=== PATIENT | female | born 1930 ===

== ENCOUNTER 2017-09-27 01:40 | Observation (INO) | payer MEDICARE, MEDICAID ==
[2017-09-27 01:41] VITALS: PULSE 145
--- NOTE | 2017-09-27 01:45 | ED PDOC ---
Arrival/HPI <Kartik Bojorquez - Last Filed: 09/27/17 03:01> - General Historian: Patient - History of Present Illness Time/Duration: 1-3 hours Symptom Course: Unchanged Activities at Onset: Light Context: Slipped <Tess De Souza - Last Filed: 09/27/17 03:24> - General Chief Complaint: Trauma Time Seen by Provider: 09/27/17 01:42 - History of Present Illness Narrative History of Present Illness (Text): CC: fall 86F presents to the Emergency department brought in by EMS with daughter for a fall. Patient's daughters heard a thud and went to see patient on the floor. No witness fall. Patient was found lying on her side with her head hitting the floor. Patient denies hip pain, back pain, chest pain, abdominal pain, changes in vision, weakness, difficulty moving extremities. Patient states her only pain is the bump on her head. PMH: T2DM, paroxysmal atrial fibrillation, CAD, hypertension, asthma, multiple myeloma on chemotherapy, coronary stents x 3 PMD: Dr. Estevez 09/27/17 02:15 (Tess De Souza) Past Medical History - Provider Review Nursing Documentation Reviewed: Yes - Infectious Disease Hx of Infectious Diseases: None - Tetanus Immunization Tetanus Immunization: Up to Date - Cardiac Hx Cardiac Disorders: Yes Hx Hypertension: Yes - Pulmonary Hx Chronic Obstructive Pulmonary Disease (COPD): Yes - Neurological Hx Neurological Disorder: No Hx Transient Ischemic Attacks (TIA): No - HEENT Hx HEENT Disorder: Yes Hx Blind: No Hx Cataracts: Yes (b/l sx) Hx Deafness: No Hx Difficulty Chewing: No Hx Epistaxis: No Hx Glaucoma: Yes Hx Macular Degeneration: No - Renal Hx Renal Disorder: No Hx Renal Failure: No - Endocrine/Metabolic Hx Diabetes Mellitus Type 2: Yes - Hematological/Oncological Hx Blood Disorders: Yes Hx AIDS: No Hx Anemia: Yes (blood transfusion) Hx Cancer: Yes (multiple myeloma dx 2 yr ago) Hx Chemotherapy: Yes (chemo injection every thursday) Hx Cirrhosis: No Hx Hemophilia: No Hx Hepatitis A: No Hx Hepatitis B: No Hx Hepatitis C: No Hx Metastasis: No Hx Shingles: (left abd to left back, pain "sometimes") Hx Sickle Cell Disease: No Hx Unexplained Bleeding: No Other/Comment: pt had shingles "yrs ago" as per family, presently does not c/o pain, chemo is given once a week x 21 days then one week off - Integumentary Hx Dermatological Disorder: Yes (eyeglasses) Hx Basal Cell Carcinoma: No Hx Eczema: No Hx Melanoma: No Hx Psoriasis: No Hx Squamous Cell Carcinoma: No Other/Comment: bruise and swelling lower lip/ eccymosis, redness, swelling left or bit, 4cm long red bruise mitchell left forehead - Musculoskeletal/Rheumatological Hx Musculoskeletal Disorders: No Hx Falls: No (fell today) - Gastrointestinal Hx Gastrointestinal Disorders: No Hx Colostomy: No Hx Crohn's Disease: No Hx Diverticulitis: No Hx Gall Bladder Disease: No Hx Gastroesophageal Reflux: No Hx Gastrointestinal Ulcer: No Hx Ileostomy: No Hx Liver Failure: No Hx Pancreatitis: No HX Swallowing Problems: No - Genitourinary/Gynecological Hx Genitourinary Disorders: No Hx Reproductive Disorders: No - Psychiatric Hx Psychophysiologic Disorder: Yes Hx Anxiety: Yes Hx Substance Use: No - Past Surgical History Past Surgical History: No Previous - Surgical History Hx Amputation: No Hx Appendectomy: No Hx Cardiac Catheterization: Yes Hx Cholecystectomy: No Hx Coronary Stent: Yes (x3 6yrs) Hx Gastric Bypass Surgery: No Hx Hysterectomy: Yes Hx Joint Replacement: No Hx Kidney Transplant: No Hx Liver Transplant: No Hx Mastectomy: No Hx Musculoskeletal Surgery: No Hx Open Heart Surgery: No Hx Orthopedic Surgery: No Hx Splenectomy: No Hx Valve Replacement: No Other/Comment: 05/16/2015 proctoplasty for chronic rectal prolapse - Anesthesia Hx Anesthesia: Yes Hx Anesthesia Reactions: No Hx Malignant Hyperthermia: No - Suicidal Assessment Feels Threatened In Home Enviroment: No <Tess De Souza - Last Filed: 09/27/17 03:24> Family/Social History - Physician Review Nursing Documentation Reviewed: Yes Family/Social History: No Known Family HX, Unknown Family HX Smoking Status: Never Smoked Hx Alcohol Use: No Hx Substance Use: No Hx Substance Use Treatment: No <Tess De Souza - Last Filed: 09/27/17 03:24> Allergies/Home Meds <Kartik Bojorquez - Last Filed: 09/27/17 03:01> <Tess De Souza - Last Filed: 09/27/17 03:24> Allergies/Adverse Reactions: Allergies No Known Allergies Allergy (Verified 09/27/17 01:46) Home Medications: Home Meds Medication Instructions Recorded Confirmed Atorvastatin [Lipitor] 80 mg PO HS 09/25/16 09/27/17 Docusate [Colace LIQUID] 100 mg PO DAILY PRN 09/25/16 09/27/17 Pantoprazole [Protonix EC Tab] 40 mg PO HS 09/25/16 09/27/17 hydroCHLOROthiazide [Hydrodiuril] 25 mg PO DAILY 09/25/16 09/27/17 Pregabalin [Lyrica] 75 mg PO BID 09/27/17 09/27/17 Review of Systems - Physician Review All systems were reviewed & negative as marked: Yes - Review of Systems Constitutional: Normal. absent: Fatigue, Weight Change, Fevers, Night Sweats Eyes: absent: Vision Changes, Photophobia, Eye Pain ENT: absent: Hearing Changes, TMJ Pain Respiratory: absent: SOB, Cough Cardiovascular: absent: Chest Pain, Palpitations, Calf Pain, Orthopnea Gastrointestinal: absent: Abdominal Pain, Stool Changes, Constipation, Diarrhea Genitourinary Female: absent: Dysuria, Frequency, Hematuria, Urine Output Changes Musculoskeletal: absent: Arthralgias, Back Pain, Neck Pain Skin: absent: Rash, Pruritis, Skin Lesions Neurological: absent: Headache, Dizziness, Focal Weakness, Gait Changes, Speech Changes, Facial Droop, Disequilibrium, Seizure Psychiatric: absent: Anxiety, Depression, Suicidal Ideation <Tess De Souza - Last Filed: 09/27/17 03:24> Physical Exam Temperature: Afebrile Blood Pressure: Hypertensive Pulse: Bradycardic Respiratory Rate: Normal Appearance: Positive for: Comfortable Pain Distress: Mild Mental Status: Positive for: Alert and Oriented X 3 - Systems Exam Head: Present: Atraumatic, Normocephalic, Tenderness (left hematoma) Pupils: Present: PERRL Extroacular Muscles: Present: EOMI Conjunctiva: Present: Normal Mouth: Present: Moist Mucous Membranes, Normal Lips. No: Dry, Drooling Nose (External): Present: Atraumatic. No: Abrasion, Contusion, Laceration Neck: Present: Normal Range of Motion, Trachea Midline. No: JVD Respiratory/Chest: Present: Clear to Auscultation, Good Air Exchange. No: Respiratory Distress, Accessory Muscle Use Cardiovascular: Present: Regular Rate and Rhythm, Normal S1, S2 Abdomen: Present: Normal Bowel Sounds. No: Tenderness, Distention, Peritoneal Signs Back: Present: Normal Inspection. No: CVA Tenderness, Midline Tenderness, Paraspinal Tenderness Upper Extremity: Present: Normal Inspection, Normal ROM, NORMAL PULSES, Capillary Refill < 2s. No: Edema Lower Extremity: Present: Normal Inspection, NORMAL PULSES, Normal ROM, Capillary Refill < 2 s. No: Edema, Tenderness, Erythema Neurological: Present: GCS=15, CN II-XII Intact, Speech Normal, Motor Func Grossly Intact, Normal Sensory Function, Normal Cerebellar Funct, Norm Deep Tendon Reflexes, Other (gait is baseline) Skin: Present: Warm, Dry, Normal Color. No: Rashes Psychiatric: Present: Alert, Oriented x 3, Normal Insight, Normal Concentration <Tess De Souza - Last Filed: 09/27/17 03:24> Vital Signs Temp Pulse Resp BP Pulse Ox 09/27/17 01:45 98.6 F 56 L 18 168/78 H 95 Medical Decision Making - Lab Interpretations I have reviewed the lab results: Yes - RAD Interpretation Hse Specialist: Radiologist - EKG Interpretation Interpreted by ED Physician: Yes Type: 12 lead EKG <Kartik Bojorquez - Last Filed: 09/27/17 03:01> Reassessment Condition: Unchanged - Lab Interpretations I have reviewed the lab results: Yes - RAD Interpretation Hse Specialist: Radiologist - EKG Interpretation Interpreted by ED Physician: Yes Type: 12 lead EKG <Tess De Souza - Last Filed: 09/27/17 03:24> ED Course and Treatment: Impression: Pt seen and evaluated with medical service technician. Pt, whose past medical history includes diabetes, paroxysmal atrial fibrillation, CAD with coronary stents, hypertension, asthma, and multiple myeloma currently on chemotherapy, presented s/p fall at home. Pt was found lying on her side at home bu daughter. Pt hit her head, and sustained a bruise to the left-side of her head. Aware and agree with HPI, clinical findings, plan, and management. Plan: -- CT Head w/o contrast -- EKG -- Labs, cardiac enzymes -- Tylenol -- Toradol -- Reassess and disposition (Kartik Bojorquez) 09/27/17 02:12 CT head EKG CBC CMP, Mg, Ph Cardiac ISO Tylenol for pain (Tess De Souza) - Lab Interpretations Lab Results: 09/27/17 02:20 Lab Results 09/27/17 02:20: PT 10.9, INR 0.96, APTT 30.9 09/27/17 02:20: WBC 6.1 D, RBC 4.16, Hgb 12.3, Hct 39.0, MCV 93.8, MCH 29.6, MCHC 31.5, RDW 17.3 H, Plt Count 192, MPV 11.5 H, Gran % 69.0 H, Lymph % (Auto) 16.4 L, [place] % (Auto) 10.6 H, Eos % (Auto) 3.8, Baso % (Auto) 0.2, Gran # 4.18, Lymph # (Auto) 1.0 L, [place] # (Auto) 0.6, Eos # (Auto) 0.2, Baso # (Auto) 0.01 09/27/17 02:20 Lab Results 09/27/17 02:20: PT 10.9, INR 0.96, APTT 30.9 09/27/17 02:20: WBC 6.1 D, RBC 4.16, Hgb 12.3, Hct 39.0, MCV 93.8, MCH 29.6, MCHC 31.5, RDW 17.3 H, Plt Count 192, MPV 11.5 H, Gran % 69.0 H, Lymph % (Auto) 16.4 L, [place] % (Auto) 10.6 H, Eos % (Auto) 3.8, Baso % (Auto) 0.2, Gran # 4.18, Lymph # (Auto) 1.0 L, [place] # (Auto) 0.6, Eos # (Auto) 0.2, Baso # (Auto) 0.01 wbc 6.1 RDW 17.3 hgb 12.3/39.0 (Tess De Souza) - RAD Interpretation Radiology Orders: 09/27/17 02:01 HEAD W/O CONTRAST [CT] Stat - EKG Interpretation EKG Interpretation (Text): 09/27/17 02:35 [id number]@62bpm (Tess De Souza) - Medication Orders Current Medication Orders: Discontinued Medications Acetaminophen (Tylenol 325mg Tab) 650 mg PO STAT STA Stop: 09/27/17 02:06 Last Admin: 09/27/17 02:26 Dose: 650 mg Disposition/Present on Arrival <Kartik Bojorquez - Last Filed: 09/27/17 03:01> - Present on Arrival Any Indicators Present on Arrival: No History of DVT/PE: No History of Uncontrolled Diabetes: No Urinary Catheter: No History of Decub. Ulcer: No History Surgical Site Infection Following: None - Disposition Have Diagnosis and Disposition been Completed?: Yes Disposition Time: 03:05 Patient Plan: Discharge <Tess De Souza - Last Filed: 09/27/17 03:24> - Disposition Diagnosis: Hematoma Disposition: HOME/ ROUTINE Patient Problems: Current Active Problems Problem Status Onset Hematoma Acute Condition: STABLE Additional Instructions: return to Emergency department if changes in vision, headache worsens, vomiting , nausea, numbness, tingling follow up with primary care doctor for further workup for falls, try encourage walker usage. Forms: [employer] (Latvian)
[2017-09-27 02:53] LABS: BASO # 0.01 K/mm3 (0.0-2.0); BASO % 0.2 % (0.0-3.0); EOS # 0.2 (0.0-0.7); EOS % 3.8 % (1.5-5.0); GRAN # 4.18 (1.4-6.5); HEMOGLOBIN 12.3 g/dL (12.0-16.0); LYMPH % 16.4 % (22.0-35.0); MEAN CELL VOLUME 93.8 fl (80.0-105.0); MEAN CORPUSCULAR HEMOGLOBIN 29.6 pg (25.0-35.0); MEAN CORPUSCULAR HGB CONC 31.5 g/dl (31.0-37.0); MEAN PLATELET VOLUME 11.5 fl (7.0-11.0); MONO # 0.6 (0.1-0.6); MONO % 10.6 % (1.0-6.0); RBC 4.16 10^6/uL (3.5-6.1); RED CELL DISTRIBUTION WIDTH 17.3 % (11.5-14.5); WHITE BLOOD COUNT 6.1 10^3/ul (4.5-11.0)
[2017-09-27 02:58] LABS: INR 0.96 (0.93-1.08); PARTIAL THROMBOPLASTIN TIME 30.9 Seconds (25.1-36.5); PROTHROMBIN TIME 10.9 SECONDS (9.4-12.5)
[2017-09-27 03:35] LABS: ALB/GLOB RATIO 1.4 (1.1-1.8); ALBUMIN 3.6 g/dL (3.0-4.8); ALT/SGPT 24 U/L (7-56); AST/SGOT 30 U/L (14-36); BLOOD UREA NITROGEN 29 mg/dL (7-21); CALCIUM 9.2 mg/dL (8.4-10.5); GFR AFRICAN-AMERICAN 52; GFR NON-AFRICAN AMERICAN 43; MAGNESIUM 1.5 mg/dL (1.7-2.2)
[2017-09-27 03:40] LABS: TROPONIN I < 0.01 ng/mL
--- NOTE | 2017-09-27 03:57 | CT ---
EXAM: CT Head Without Intravenous Contrast EXAM DATE/TIME: 09/27/2017 2:01 AM CLINICAL HISTORY: 86 years old, female; Injury or trauma; Fall; Initial encounter; Concussion / head injury; Without loss of consciousness; Additional info: Fell and hit head TECHNIQUE: Axial computed tomography images of the head/brain without intravenous contrast. All CT scans at this facility use one or more dose reduction techniques, viz.: automated exposure control; ma/kV adjustment per patient size (including targeted exams where dose is matched to indication; i.e. head); or iterative reconstruction technique. Coronal and sagittal reformatted images were created and reviewed. COMPARISON: Prior head CT of 2016-08-25 FINDINGS: BRAIN: Best seen on image 17 of series 4, there is a small amount of high density in the left basilar cistern, in the suprasellar cistern on the left posteriorly, a new finding, suspicious for a tiny amount of acute subarachnoid hemorrhage. This is also at the expected location of the left posterior cerebral artery, and it has a linear configuration. Areas of hypodensity in the white matter bilaterally, nonspecific in appearance, but most likely representing chronic small vessel ischemic changes, in a patient of this age. No other significant abnormality identified. No acute extra-axial fluid collections visualized. No evidence of acute intraparenchymal or intraventricular hemorrhage. VENTRICLES: See above. BONES/JOINTS: No acute fractures are seen. SOFT TISSUES: Soft tissue swelling in the left posterior scalp. SINUSES: Near complete opacification of the left maxillary sinus. There is also moderate opacification of the left ethmoid sinuses and mild mucosal thickening in the left frontal sinus. Findings are compatible with sinus inflammatory disease. Sinus navarro appear intact. MASTOID AIR CELLS: Small amount of fluid in the left mastoid air cells, suspicious for mild left mastoiditis. No evidence of an underlying left temporal bone fracture. IMPRESSION: - Findings suspicious for a tiny amount of acute subarachnoid hemorrhage in the basilar cisterns on the left. This is also the expected location of the left posterior cerebral artery, and if there is any clinical concern for an acute infarct causing a hyperdense artery sign, consider CT angiogram of the brain for further evaluation. - See above for remaining findings.
[2017-09-27] MEDS ORDERED: Sodium Chloride 0.9% 1,000 ML IV STA ×2 (04:06→10:15)
[2017-09-27 06:33] VITALS: BMI 21.2
--- NOTE | 2017-09-27 09:05 | RAD ---
HISTORY: cp COMPARISON: 09/25/2016 FINDINGS: LUNGS: No active pulmonary disease. PLEURA: No significant pleural effusion identified, no pneumothorax apparent. CARDIOVASCULAR: Normal. OSSEOUS STRUCTURES: No significant abnormalities. VISUALIZED UPPER ABDOMEN: Normal. OTHER FINDINGS: None. IMPRESSION: No active disease.
[2017-09-27] MEDS ORDERED: Aspirin 325 mg EC Tablets PO SCH (10:00)
[2017-09-27] MEDS: Magnesium Oxide 400 mg Tab UD PO SCH ×2 (10:27→19:04)
--- NOTE | 2017-09-27 11:47 | CARD ---
APPROVED REPORT EKG Measurement Heart [id number] HI 120P12 [id number] <Conclusion> Normal sinus rhythm Normal ECG
--- NOTE | 2017-09-27 15:44 | MRI ---
PROCEDURE: MRI BRAIN WITHOUT CONTRAST HISTORY: sah COMPARISON: CT scan 09/27/2017 TECHNIQUE: Multiplanar, multisequence MR images of the brain were obtained without intravenous contrast enhancement. FINDINGS: HEMORRHAGE: None DWI: No evidence of an acute or early subacute infarction. BRAIN PARENCHYMA: No mass effect or edema. Chronic microvascular changes are seen in the periventricular white matter. No acute intracranial findings. There is a small linear area of hyperintensity adjacent to the left middle cerebral peduncle which corresponds to the area of hyperdensity seen on CT. This probably represents a small amount of subarachnoid hemorrhage. There is no evidence of vascular thrombosis. The finding is seen on FLAIR image 12 series 5 VENTRICLES: Unremarkable. No hydrocephalus. CRANIUM: Unremarkable. ORBITS: Grossly unremarkable. PARANASAL SINUSES/MASTOIDS: Clear VASCULAR SYSTEM: Skull base flow voids intact. OTHER FINDINGS: None. IMPRESSION: There is a small linear area of hyperintensity adjacent to the left middle cerebral peduncle which corresponds to the area of hyperdensity seen on CT. This probably represents a small amount of subarachnoid hemorrhage. There is no evidence of vascular thrombosis.
[2017-09-27 18:21] VITALS: RESP 18
[2017-09-27] MEDS ORDERED: Pantoprazole 40 mg EC Tab PO SCH (22:00)
--- NOTE | 2017-09-27 23:24 | HP ---
HISTORY OF PRESENT ILLNESS: She came into the emergency room last night, being an 86-year-old female, by her daughter when the daughter heard a thud and seeing the patient on the floor, no witnessed fall, she was lying on her side with her head hitting the floor. No hip pain, chest pain, back pain, but she is weak, difficulty moving extremities. PAST MEDICAL HISTORY: She has a past medical history of type 2 diabetes; AFib; CAD; hypertension; asthma and multiple myeloma, on chemotherapy; coronary stents x3; COPD; cataract surgery bilaterally; glaucoma; diabetes. She has blood problems. She had blood transfused in the past, multiple myeloma, chemo injection every Thursday. She had shingles in the past. She wares eyeglasses. Bruising and swelling in the lower lip, ecchymoses, redness, swelling, 4 cm long red bruise in the left forehead. The back of her head is swollen. She has some anxiety. She had coronary stents x3 six years ago. She has had a hysterectomy. She had a proctoplasty for chronic rectal prolapse. FAMILY HISTORY: Hypertension in the family. SOCIAL HISTORY: Never smoked. No drugs or alcohol. ALLERGIES: NO KNOWN DRUG ALLERGIES. MEDICATIONS: She takes Lipitor, Colace, Protonix, Hydrodiuril, Lyrica. REVIEW OF SYSTEMS: She feels weak. She has a head swelling from where she hit the head, no vision change or hearing change. No swallowing problems. No shortness of breath. No cough or chest pain or palpitations. No calf pain. No abdominal pain. No nausea, vomiting, constipation, diarrhea. No problems urinating. She has no back pain. Just the head swelling. Skin for the most part is intact. Couple of bruises. No headache, no dizziness or focal weakness, but she is weak overall. She is anxious from time to time. She has a swelling in the back of her head. PHYSICAL EXAMINATION: VITAL SIGNS: She has a 98.6 temperature, 56 pulse, 18 respiratory rate, 168/78 blood pressure, 95% sat on room air. HEENT: Head has some trauma in the left, hematoma to the back of the head, on the left side. Extraocular muscles intact. Pupils equal and reactive to light and accommodation. Throat is moist. Nose is atraumatic. No bloody nose, no biting of the tongue. Throat is clear. NECK: Supple. HEART: Regular rate. Normal S1, S2. LUNGS: Decreased breath sounds, clear to auscultation. ABDOMEN: Soft, nontender. Positive bowel sounds. No guarding, no rebound or CVA tenderness. EXTREMITIES: She can move all four extremities. No edema. Equal strength bilaterally. NEUROLOGIC: GCS is 15. Cranial nerves II through XII grossly intact. Tongue is midline. She can squeeze my hand with equal strength. She smiles, she frowns. She closes her eyes tight. Neurologically she seems okay. At the back for her head there is a swelling the size of a grape. SKIN: Warm and dry. No apparent rashes or ulcers. PSYCHIATRIC: Alert and oriented x3. LYMPHATIC: Thyroid midline. No palpable appreciable lymphadenopathy at this time. LABORATORY DATA: She had multiple tests. She has a 143 sodium, potassium 4.3, BUN 29, creatinine 1.2. GFR is 43. Sugar is 114. Calcium is 9.2, phos of 3.8, total bili is 0.68. AST is 30, ALT is 24, alk phos 64. Lactate dehydrogenase is 525. Total creatinine kinase of 110. Troponin I is less than 0.01, total protein 6.3, albumin is 3.6. INR is 0.96. White count 6.1, 12.3 hemoglobin, 39 hematocrit with 192 platelets. She has a head CT which showed suspicious for tiny amount of acute subarachnoid hemorrhage in the basal cisterns on the left. This is also the expected location of the left posterior cerebral artery and if there is any concern of acute infarct causing hyperdense artery sign. Consider CT angiogram of the brain. There was also swelling of the left posterior head. The chest x-ray shows no active disease. She has a consult for Neurology. I put her on all the medications except aspirin and Plavix because of the bleed going on. I will put her on low flow IV fluids. She is on observation. I am hoping that we could possibly get her out in the first 24 hours. We are waiting to see what neurology has to say I think I can put her back on her Plavix and aspirin. She has a fall with head trauma, subarachnoid bleed. She might need physical therapy and see what the Physical Therapy says. Cornelius Estevez DO [facility] # [id number]
[2017-09-27 23:41] VITALS: O2SAT 97
[2017-09-28 06:30] LABS: HEMOGLOBIN 11.3 g/dL (12.0-16.0); MEAN CELL VOLUME 92.1 fl (80.0-105.0); MEAN CORPUSCULAR HGB CONC 31.5 g/dl (31.0-37.0); RBC 3.9 10^6/uL (3.5-6.1); RED CELL DISTRIBUTION WIDTH 17.1 % (11.5-14.5); WHITE BLOOD COUNT 4.9 10^3/ul (4.5-11.0)
[2017-09-28 07:13] LABS: ALB/GLOB RATIO 1.3 (1.1-1.8); CALCIUM 9.1 mg/dL (8.4-10.5)
--- NOTE | 2017-09-28 08:43 | CON ---
DATE: 09/27/2017 HISTORY OF PRESENT ILLNESS: This is an 86-year-old black female with a past medical history of diabetes, atrial fibrillation, coronary artery disease, hypertension, asthma, multiple myeloma, status post coronary stents and came to hospital because patient fell and daughter heard a thud and when she was found lying on the floor, no weakness, no visual problems, and not in distress and small hematoma at the back of the head in the left occipital region. PHYSICAL EXAMINATION: HEENT: Normocephalic. Head trauma secondary to fall at the back of the left side of the head. NECK: Supple. NEUROLOGIC: Alert, awake, oriented to x 3. No aphasia. Cranial nerve II through XII are tested. Pupils reactive. EOM intact. Visual rogers full. No facial asymmetry. Tongue, midline. Motor examination: Moves all the extremities equally. Tone normal. Deep tendon reflexes are 1+. Both plantars are downgoing. Sensory appears intact. Cerebellar, gait deferred. IMPRESSION: Subarachnoid hemorrhage secondary to fall. Patient feels better. Continue . Sriram Lowe MD
[2017-09-28] MEDS: Magnesium Oxide 400 mg Tab UD PO SCH (09:03)
--- NOTE | 2017-09-28 10:23 | CP.PCM.PN ---
Subjective - Date & Time of Evaluation Date of Evaluation: 09/28/17 Time of Evaluation: 10:21 - Subjective Subjective: 86 y o b female adm yest s/p fall CT shows small amount of sah MRI demonstrates this also no vascular anoilies no indication for surgery Pt obs x 24 hrs and clear neurosurgically Objective - Vital Signs/Intake and Output Vital Signs (last 24 hours): Temp Pulse Resp BP Pulse Ox 98.4 F 74 18 143/82 97 09/28/17 05:49 09/28/17 09:49 09/28/17 05:49 09/28/17 09:04 09/28/17 05:49 Intake and Output: 09/28/17 09/28/17 06:59 18:59 Intake Total 930 Output Total 2 Balance 928 - Medications Medications: Current Medications Acetaminophen (Tylenol 325mg Tab) 650 mg PO Q4H PRN PRN Reason: Pain, Mild (1-3) Atorvastatin Calcium (Lipitor) 80 mg PO [facility] Last Admin: 09/27/17 21:21 Dose: 80 mg Docusate Sodium (Colace Liquid) 100 mg PO DAILY PRN PRN Reason: Constipation Ferrous Sulfate (Feosol) 324 mg PO DAILY [facility] Last Admin: 09/28/17 09:03 Dose: 324 mg Hydrochlorothiazide (Hydrodiuril) 25 mg PO DAILY [facility] Last Admin: 09/28/17 09:03 Dose: 25 mg Losartan Potassium (Cozaar) 50 mg PO DAILY [facility] Last Admin: 09/28/17 09:03 Dose: 50 mg Magnesium Oxide (Mag-Ox) 400 mg PO BID [facility] Last Admin: 09/28/17 09:03 Dose: 400 mg Metformin HCl (Glucophage) 500 mg PO BID [facility] Last Admin: 09/28/17 09:03 Dose: 500 mg Pantoprazole Sodium (Protonix Ec Tab) 40 mg PO [facility] Last Admin: 09/27/17 21:21 Dose: 40 mg Pregabalin (Lyrica) 75 mg PO BID [facility] Last Admin: 09/28/17 09:03 Dose: 75 mg Sotalol HCl (Betapace) 80 mg PO BID [facility] Last Admin: 09/28/17 10:04 Dose: Not Given - Labs Labs: 09/28/17 05:50 09/28/17 05:50 PT 10.9 SECONDS (9.4-12.5) 09/27/17 02:20 INR 0.96 (0.93-1.08) 09/27/17 02:20 APTT 30.9 Seconds (25.1-36.5) 09/27/17 02:20
--- NOTE | 2017-09-28 13:57 | PN ---
DATE: SUBJECTIVE: I saw her sitting up in bed. She is very comfortable. The nurse tells me she went into AFib this morning that converted back to normal sinus rhythm. I will consult Dr. Christine, the kiln stoker. Also Neurology to take at look at her. I do not get to see the note yet, but consulted Neurosurgery for the subarachnoid hemorrhage. She is asymptomatic and comfortable at this time. She is eating, no apparent distress, she is 86 years old, and it is a very small subarachnoid hemorrhage. We will see what Neurosurgery has to say. PHYSICAL EXAMINATION: VITAL SIGNS: She has 98.4 temperature, 89 pulse, 143/77 blood pressure, 18 respiratory rate, 97% O2 sat on room air. HEENT: Head is atraumatic, normocephalic. Throat is moist. NECK: Supple. HEART: Regular rate at this time. LUNGS: Clear to auscultation. ABDOMEN: Soft. EXTREMITIES: No edema. MEDICATIONS: She is on Colace, Cozaar, Feosol, Glucophage, HydroDIURIL, Lipitor, Lopressor, Lyrica, magnesium oxide, Protonix, and Tylenol. LABORATORY DATA: She has a 139 sodium, potassium 4. BUN 22, creatinine 1.2. GFR is 43. Sugar is 95. Calcium is 9.1. Total bilirubin is 0.88. AST is 22, ALT is 25, alkaline phosphatase 53. Total protein is 5.4. White count is 4.9, hemoglobin 11.3, hematocrit 35.9, and platelets 152. INR is 0.96. She was supposed to also be on Plavix and aspirin, I held that during the bleed. Await Cardiology and Neurosurgery put that back on again. There is a question of Neurosurgery. If there is no Neurosurgery and Cardio says it okay, I possibly can discharge her this afternoon. Await and see what the consults say and subarachnoid bleed from a fall. Cornelius Estevez DO MTDD
--- NOTE | 2017-09-28 14:15 | EEG ---
DATE: 09/28/2017 CONDITION OF THE RECORDING: Drowsy. DIAGNOSIS: Altered mental status. MEDICATIONS: Reviewed by nurse's reconciliation sheet. INTERPRETATION: This is a 16-channel [employer] recording. Background activity of this tracing was composed of 6 to 7 cycles per second. There was small amount of beta activity of 16 to 20 cycles per second seen during this tracing. There was increased amount of theta activity 5 to 7 cycles per second seen during this tracing. Drowsiness was characterized by mixed beta and theta activities. Sleep was characterized by vertex transient waves, sleep spindles, and bilateral slowing. Photic stimulation showed no changes in the tracing. No paroxysmal activity is noted on this recording. CONCLUSION: This is an abnormal EEG due to presence of mild diffuse slowing consistent with mild bilateral cerebral dysfunction. No evidence of any epileptiform activity. Please clinically correlate. Jac Lowe MD
[2017-09-28 14:40] VITALS: BP 121/69; PULSE 63; TEMP 98.3
--- NOTE | 2017-09-28 16:16 | CP.PCM.PN ---
<Gogo Acosta - Last Filed: 09/28/17 16:16> Subjective - Date & Time of Evaluation Date of Evaluation: 09/28/17 Time of Evaluation: 09:00 - Subjective Subjective: Neurology PGY-[address] Lowe Pt denies any acute complaint. Denies [place], dizziness, CP, SOB Objective - Vital Signs/Intake and Output Vital Signs (last 24 hours): Temp Pulse Resp BP Pulse Ox 98.3 F 63 18 121/69 97 09/28/17 12:00 09/28/17 12:00 09/28/17 12:00 09/28/17 12:00 09/28/17 05:49 Intake and Output: 09/28/17 09/28/17 06:59 18:59 Intake Total 930 840 Output Total 2 Balance 928 840 - Medications Medications: Current Medications Acetaminophen (Tylenol 325mg Tab) 650 mg PO Q4H PRN PRN Reason: Pain, Mild (1-3) Atorvastatin Calcium (Lipitor) 80 mg PO [facility] Last Admin: 09/27/17 21:21 Dose: 80 mg Docusate Sodium (Colace Liquid) 100 mg PO DAILY PRN PRN Reason: Constipation Ferrous Sulfate (Feosol) 324 mg PO DAILY [facility] Last Admin: 09/28/17 09:03 Dose: 324 mg Hydrochlorothiazide (Hydrodiuril) 25 mg PO DAILY [facility] Last Admin: 09/28/17 09:03 Dose: 25 mg Losartan Potassium (Cozaar) 50 mg PO DAILY [facility] Last Admin: 09/28/17 09:03 Dose: 50 mg Magnesium Oxide (Mag-Ox) 400 mg PO BID [facility] Last Admin: 09/28/17 09:03 Dose: 400 mg Metformin HCl (Glucophage) 500 mg PO BID [facility] Last Admin: 09/28/17 09:03 Dose: 500 mg Pantoprazole Sodium (Protonix Ec Tab) 40 mg PO [facility] Last Admin: 09/27/17 21:21 Dose: 40 mg Pregabalin (Lyrica) 75 mg PO BID [facility] Last Admin: 09/28/17 09:03 Dose: 75 mg Sotalol HCl (Betapace) 80 mg PO BID [facility] Last Admin: 09/28/17 10:04 Dose: Not Given - Labs Labs: 09/28/17 05:50 09/28/17 05:50 PT 10.9 SECONDS (9.4-12.5) 09/27/17 02:20 INR 0.96 (0.93-1.08) 09/27/17 02:20 APTT 30.9 Seconds (25.1-36.5) 09/27/17 02:20 - Constitutional Appears: No Acute Distress - Head Exam Head Exam: ATRAUMATIC, NORMAL INSPECTION, NORMOCEPHALIC - Eye Exam Eye Exam: EOMI, Normal appearance, PERRL. absent: Scleral icterus Pupil Exam: NORMAL ACCOMODATION - ENT Exam ENT Exam: Mucous Membranes Moist - Neck Exam Additional comments: supple - Respiratory Exam Respiratory Exam: Clear to Ausculation Bilateral, NORMAL BREATHING PATTERN - Cardiovascular Exam Cardiovascular Exam: REGULAR RHYTHM, +S1, +S2. absent: Murmur - Neurological Exam Neurological Exam: Alert, Awake, Oriented x3 Additional comments: Visual rogers full Speech: no aphasia Motor: Move all extremiites equally Sensory: intact DTR: 1+ Plantars downgoing - Psychiatric Exam Psychiatric exam: Normal Affect, Normal Mood - Skin Skin Exam: Dry, Warm Assessment and Plan - Assessment and Plan (Free Text) Plan: Ms Harrell, 86 AAF, with PMH diabetes, a fib, CAD s/p stents, HEN, asthma, multiple myeloma sustained a subarachnoid hemorrhage secondary to fall. Brain MRI showed small linear hyperintensity adjacent to L middle cerebral peduncle, corresponding to hyperdensity seen on CT. No vascular thrombosis. EEG showed mild diffuse slowing consistent with mild bilateral cerebral dysfunction. No epileptiform activity. subarachnoid hemorrhage - Hold ASA and anticoagulants for 2 weeks after the onset of SAH - maintain SBP 120-130 - continue lyrica for multiple myeloma neuropathy - follow up with neurology outpatient in 1 week - pt is neurologically stable for discharge from hospital s/r/d/w Dr. Lowe <Jac Lowe - Last Filed: 09/29/17 10:30> Objective - Vital Signs/Intake and Output Vital Signs (last 24 hours): Temp Pulse Resp BP Pulse Ox 98.3 F 63 18 121/69 97 09/28/17 12:00 09/28/17 12:00 09/28/17 12:00 09/28/17 12:00 09/28/17 05:49 - Labs Labs: 09/28/17 05:50 09/28/17 05:50 PT 10.9 SECONDS (9.4-12.5) 09/27/17 02:20 INR 0.96 (0.93-1.08) 09/27/17 02:20 APTT 30.9 Seconds (25.1-36.5) 09/27/17 02:20 Attending/Attestation - Attestation I have personally seen and examined this patient.: Yes I have fully participated in the care of the patient.: Yes I have reviewed all pertinent clinical information, including history, physical exam and plan: Yes
--- NOTE | 2017-09-28 21:58 | CON ---
DATE: 09/28/2017 HISTORY OF PRESENT ILLNESS: The patient is an 86-year-old woman, who presented after a fall. She has a documented subarachnoid bleed. The patient's past medical history is notable for hypertension, diabetes mellitus, as well as documented paroxysmal atrial fibrillation. She was found to have self-limited atrial fibrillation today during her blood drawn. The patient is asymptomatic. No chest pain. No shortness of breath. SOCIAL HISTORY: The patient does not smoke. REVIEW OF SYSTEMS: A 14-point review of systems was reviewed in detail. No angina. No dyspnea. No pedal edema. No history of myocardial infarction. She does have occasional falls without loss of consciousness. PHYSICAL EXAMINATION: VITAL SIGNS: Blood pressure 143/82, heart rate in the 70s, normal sinus rhythm. NECK: Negative JVD. LUNGS: Without rales. HEART: S1, S2. EXTREMITIES: Without edema. EKG shows no acute changes. LABORATORY DATA: BUN and creatinine unremarkable. Potassium is 4.0. Magnesium on presentation is 1.5. Hemoglobin is 11.3. IMPRESSION: 1. Paroxysmal atrial fibrillation. 2. Diabetes mellitus. 3. Hypertension. 4. Status post fall. PLAN: Given these findings, the patient cannot be anticoagulated given her recurrent falls and documented subarachnoid bleed. Instead we will make attempts to keep the patient out of atrial fibrillation. We will change her metoprolol to sotalol 80 mg b.i.d. We will need to follow her heart rate carefully as an outpatient. Vance Christine MD
== END 2017-09-28 18:23 | disposition home or self-care (01) ==
LOC: ED 01:40 → ERH 04:01 → 2RSO 06:09
PROVIDERS: ADMIT Family Medicine; ATTEND Family Medicine
DX: S06.6X0A Traumatic subarachnoid hemorrhage without loss of consciousness, initial encounter (principal); J44.9 Chronic obstructive pulmonary disease, unspecified; I48.0 Paroxysmal atrial fibrillation; I25.10 Atherosclerotic heart disease of native coronary artery without angina pectoris; I10 Essential (primary) hypertension; E11.9 Type 2 diabetes mellitus without complications; C90.00 Multiple myeloma not having achieved remission; H40.9 Unspecified glaucoma; Y92.009 Unspecified place in unspecified non-institutional (private) residence as the place of occurrence of the external cause; W19.XXXA Unspecified fall, initial encounter; Z95.5 Presence of coronary angioplasty implant and graft
CPT/HCPCS: 36415; 70450; 70551; 71045; 80053; 82550; 82948; 83615; 83735; 84100; 84484; 85025; 85027; 85610; 85730; 93005; 95812; 99285; G0378; J7040

== ENCOUNTER 2018-07-05 16:10 | Inpatient (IN) | payer MEDICARE, MEDICAID ==
[2018-07-05 16:10] VITALS: PULSE 145
--- NOTE | 2018-07-05 16:28 | ED PDOC ---
Arrival/HPI - General Chief Complaint: Shortness Of Breath Historian: Family EM Caveat: Acuity of Condition, Respiratory Distress - Critical Care Critical Care Minutes: 30 minutes - History of Present Illness Narrative History of Present Illness (Text): 87 y/o F w/ h/o CHF, HTN, HLD presenting to the Emergency Department for respiratory distress. Per EMS, the patient was gasping for air and called her daughter who noted she was dyspneic at rest. EMS was called and noted the patient to be tachypneic with bibasilar crackles at the bases and administered 2 sprays of SL NTG as well as starting the patient on CPAP. The patient was noted to immediately improve in pulmonary status, but was noted to have pedal edema. Upon questioning of the daughter, the patient had been having progressive difficulty breathing. PCP: Dr. Estevez Specialist: Dr. Contreras(cardiology) Time/Duration: Prior to Arrival Symptom Onset: Sudden Symptom Course: Improving Quality: Tightness Severity Level: Moderate Activities at Onset: Rest Context: Home Past Medical History - Provider Review Nursing Documentation Reviewed: Yes - Travel History Have you recently traveled outside [place] w/in the past 3 mons?: No - Infectious Disease Hx of Infectious Diseases: None - Tetanus Immunization Tetanus Immunization: Up to Date - Cardiac Hx Cardiac Disorders: Yes Hx Hypertension: Yes Hx Peripheral Edema: Yes - Pulmonary Hx Respiratory Disorders: Yes Hx Asthma: Yes Hx Bronchitis: Yes Hx Chronic Obstructive Pulmonary Disease (COPD): Yes Hx Pneumonia: Yes - Neurological Hx Neurological Disorder: No Hx Transient Ischemic Attacks (TIA): No - HEENT Hx HEENT Disorder: Yes Hx Cataracts: Yes Hx Glaucoma: Yes - Renal Hx Renal Disorder: No Hx Renal Failure: No - Endocrine/Metabolic Hx Endocrine Disorders: Yes Hx Diabetes Mellitus Type 2: Yes - Hematological/Oncological Hx Blood Disorders: Yes Hx Anemia: Yes Hx Cancer: Yes (w/ chemo every Thursday) - Integumentary Hx Dermatological Disorder: Yes (eyeglasses) Hx Basal Cell Carcinoma: No Hx Eczema: No Hx Melanoma: No Hx Psoriasis: No Hx Squamous Cell Carcinoma: No Other/Comment: bruise and swelling lower lip/ eccymosis, redness, swelling left or bit, 4cm long red bruise mitchell left forehead - Musculoskeletal/Rheumatological Hx Musculoskeletal Disorders: Yes Hx Arthritis: Yes Hx Back Pain: Yes Hx Falls: Yes - Gastrointestinal Hx Gastrointestinal Disorders: No Hx Colostomy: No Hx Crohn's Disease: No Hx Diverticulitis: No Hx Gall Bladder Disease: No Hx Gastroesophageal Reflux: No Hx Gastrointestinal Ulcer: No Hx Ileostomy: No Hx Liver Failure: No Hx Pancreatitis: No HX Swallowing Problems: No - Genitourinary/Gynecological Hx Genitourinary Disorders: No Hx Reproductive Disorders: No - Psychiatric Hx Psychophysiologic Disorder: Yes Hx Anxiety: Yes Hx Substance Use: No - Past Surgical History Past Surgical History: No Previous - Surgical History Hx Cardiac Catheterization: Yes Hx Coronary Stent: Yes Hx Hysterectomy: Yes - Anesthesia Hx Anesthesia: Yes Hx Anesthesia Reactions: No Hx Malignant Hyperthermia: No - Suicidal Assessment Feels Threatened In Home Enviroment: No Family/Social History - Physician Review Nursing Documentation Reviewed: Yes Family/Social History: Unknown Family HX Smoking Status: Never Smoked Hx Alcohol Use: No Hx Substance Use: No Hx Substance Use Treatment: No Allergies/Home Meds Allergies/Adverse Reactions: Allergies No Known Allergies Allergy (Verified 09/27/17 01:46) Home Medications: Home Meds Medication Instructions Recorded Confirmed RX: Atorvastatin [Lipitor] 80 mg PO HS 09/25/16 07/05/18 RX: Pantoprazole [Protonix EC Tab] 40 mg PO DAILY 09/25/16 07/05/18 RX: hydroCHLOROthiazide 25 mg PO DAILY 09/25/16 07/05/18 [Hydrodiuril] RX: Pregabalin [Lyrica] 75 mg PO BID 09/27/17 07/05/18 Albuterol Sulfate [Proair Hfa] 1 puff IH TID PRN 07/05/18 07/05/18 Brimonidine Tartrate [Alphagan P 1 drop BOTHEYES TID 07/05/18 07/05/18 0.1 % Ophth] Docusate Sodium [Doc-Q-Lace] 1 cap PO PRN PRN 07/05/18 07/05/18 RX: Ferrous Sulfate [Feosol] 325 mg PO DAILY 07/05/18 07/05/18 SITagliptin [Januvia] 1 tab PO DAILY 07/05/18 07/05/18 Review of Systems - Review of Systems Systems not reviewed;Unavailable: Respiratory Distress Respiratory: SOB. absent: Cough, Sputum, Wheezing Cardiovascular: absent: Chest Pain, Palpitations Gastrointestinal: absent: Abdominal Pain, Constipation, Diarrhea Physical Exam Temperature: Febrile Blood Pressure: Normal Pulse: Regular Respiratory Rate: Tachypneic Appearance: Positive for: Cachectic Pain Distress: None Mental Status: Positive for: Agitated - Systems Exam Head: Present: Atraumatic, Normocephalic Pupils: Present: PERRL Extroacular Muscles: Present: EOMI Conjunctiva: Present: Normal Mouth: Present: Moist Mucous Membranes Neck: Present: Normal Range of Motion Respiratory/Chest: Present: Good Air Exchange, Decreased Breath Sounds, Rales (b/l crackles noted to the bases b/l), Tachypneic. No: Wheezes Cardiovascular: Present: Regular Rate and Rhythm, Normal S1, S2. No: Murmurs Abdomen: Present: Normal Bowel Sounds. No: Tenderness, Distention, Peritoneal Signs Rectal: Present: Rectal Tenderness, Other (Prolapsed rectocele noted extending out of rectal canal, tender to palpation). No: Melena Upper Extremity: Present: Normal Inspection, Capillary Refill < 2s. No: Cyanosis, Edema, Swelling Lower Extremity: Present: Edema, NORMAL PULSES Neurological: Present: GCS=15, CN II-XII Intact, Speech Normal Skin: Present: Warm, Dry, Normal Color. No: Rashes Psychiatric: Present: Alert, Anxious Medical Decision Making ED Course and Treatment: 07/05/18 16:34 Impression 87 y/o F w/ dysnpea worrisome for CHF exacerbation Differential Diagnoses Include But Are Not Limited To: --CHF exacerbation --ACS --Sepsis Plan --Labs --CXR --IVF --Blood Cultures --UA/Urine Cultures --BiPap --Reassess & disposition Progress Notes Patient has rectal temperature of 103.F with tachypnea. Rectal Tylenol ordered. Awaiting lab results. VBG reveals elevated potassium of 6.7 with no EKG changes. Sodium bicarbonate and albuterol nebulizer ordered. 07/05/18 17:08 Patient reassessed and still noted to be tachypneic to 26 with CXR revealing a left lower lobe retrocardiac infiltrate suspicious for PNA. Zosyn and Vancomycin ordered. Discussed case with Dr. Estevez(PCP) who accepts patient onto his service and requests Dr. Morris(pulmonary) and Dr. Christine(cardiology) consulted on the case. Interrogation of patient's daughter reveal patient had been seeing Dr. Carvajal on an outpatient basis. Discussion of updated plan with daughter who is in agreement. - RAD Interpretation Radiology Orders: 07/05/18 16:20 CHEST PORTABLE [RAD] Stat - EKG Interpretation EKG Interpretation (Text): NSR @ 68BPM LAE No ST elevations or T wave inversion Slight ST depression noted n V5. Interpreted by ED Physician: Yes Type: 12 lead EKG - Medication Orders Current Medication Orders: Acetaminophen (Tylenol 650 Mg Supp) 650 mg RC STAT STA Stop: 07/05/18 16:23 Sodium Chloride (Sodium Chloride 0.9%) 1,000 mls @ 150 mls/hr IV .Q6H40M RICHARD Disposition/Present on Arrival - Present on Arrival Any Indicators Present on Arrival: No History of DVT/PE: No History of Uncontrolled Diabetes: No Urinary Catheter: No History Surgical Site Infection Following: None - Disposition Have Diagnosis and Disposition been Completed?: Yes Diagnosis: PNA (pneumonia), Respiratory distress Disposition: HOSPITALIZED Disposition Time: 17:08 Patient Plan: Admission Patient Problems: Current Active Problems Problem Status Onset Pneumonia Acute Respiratory distress Acute Condition: GUARDED
[2018-07-05] MEDS ORDERED: Sodium Chloride 0.9% 1,000 ML IV SCH (16:30)
[2018-07-05 16:34] LABS: VENOUS BLOOD GAS BASE EXCESS 6.2 mmol/L (0.0-2.0); VENOUS BLOOD GAS PO2 48 mm/Hg (30-55); VENOUS BLOOD PH 7.33 (7.32-7.43)
[2018-07-05 16:42] LABS: BASO # 0.02 K/mm3 (0.0-2.0); BASO % 0.2 % (0.0-3.0); EOS # 0.1 (0.0-0.7); GRAN # 8.47 (1.4-6.5); GRAN % 84.5 % (50.0-68.0); HEMOGLOBIN 11.2 g/dL (12.0-16.0); LYMPH # 0.6 (1.2-3.4); LYMPH % 6.3 % (22.0-35.0); MEAN CORPUSCULAR HEMOGLOBIN 31.1 pg (25.0-35.0); MEAN CORPUSCULAR HGB CONC 32.7 g/dl (31.0-37.0); MEAN PLATELET VOLUME 11.6 fl (7.0-11.0); MONO # 0.8 (0.1-0.6); RBC 3.6 10^6/uL (3.5-6.1); RED CELL DISTRIBUTION WIDTH 16.1 % (11.5-14.5)
[2018-07-05 16:45] LABS: INR 1.09; PARTIAL THROMBOPLASTIN TIME 32.3 Seconds (25.1-36.5); PROTHROMBIN TIME 12.4 SECONDS (9.4-12.5)
[2018-07-05] MEDS ORDERED: Albuterol 0.083% Inhal Sol (2.5 mg/3 mL) UD INH STA (16:54)
[2018-07-05] MEDS ORDERED: Sodium Bicarbonate (8.4%) 50 Meq Syringe IVP ONE (16:54)
--- NOTE | 2018-07-05 16:54 | RAD ---
Date of service: 07/05/2018 HISTORY: Sepsis Patient COMPARISON: 09/27/2017 FINDINGS: LUNGS: Left lower lobe retrocardiac infiltrate, new finding compared to the prior study PLEURA: No significant pleural effusion identified, no pneumothorax apparent. CARDIOVASCULAR: No atherosclerotic calcification present No radiographic findings to suggest acute or significant cardiovascular disease. OSSEOUS STRUCTURES: No significant abnormalities. VISUALIZED UPPER ABDOMEN: Normal. OTHER FINDINGS: None. IMPRESSION: New left lower lobe infiltrate likely pneumonia.
[2018-07-05] MEDS ORDERED: Vancomycin 1gm in NS 250ml 1 GM/250 ML BAG IVPB STA (16:58)
[2018-07-05] MEDS: Piperacill/Tazo 4.5gm in NS 4.5 GM/100 ML BAG IVPB ONE ×2 (17:14→17:20)
[2018-07-05] MEDS ORDERED: Piperacill/Tazo 4.5gm in NS 4.5 GM/100 ML BAG IVPB ONE (17:18)
[2018-07-05] MEDS: Sodium Chloride 0.9% 1,000 ML IV SCH (17:21)
[2018-07-05 18:03] LABS: ALB/GLOB RATIO 1.2 (1.1-1.8); ALBUMIN 2.6 g/dL (3.0-4.8); CALCIUM 7.3 mg/dL (8.4-10.5)
[2018-07-05 18:29] LABS: TROPONIN I 1.82 ng/mL
[2018-07-05 18:57] LABS: URINE BILIRUBIN NEGATIVE (NEGATIVE); URINE BLOOD MODERATE (NEGATIVE); URINE GLUCOSE (UA) NEGATIVE (NEGATIVE); URINE LEUKOCYTE ESTERASE NEGATIVE Leu/uL (NEGATIVE); URINE PROTEIN TRACE mg/dL (<30 mg/dL); URINE UROBILINOGEN 0.2 E.U./dL (<1 E.U./dL)
[2018-07-05 19:02] LABS: URINE APPEARANCE CLEAR (CLEAR); URINE COLOR YELLOW (YELLOW)
[2018-07-05 19:17] LABS: URINE RBC 20 - 25 /hpf (0-2)
[2018-07-05 19:18] LABS: URINE BACTERIA SMALL (NEG)
--- NOTE | 2018-07-05 21:10 | PCM.SEPTIC ---
Sepsis Progress Note - Reassessment Type Date of Evaluation: 07/05/18 Time of Evaluation: 21:08 Reassessment Type: Non-invasive reassessment - Non Invasive Reassessment Were the most recent vital sign reviewed: Yes Vital Sign (Latest): Temp Pulse Resp BP Pulse Ox 101.6 F H 61 24 92/52 L 100 07/05/18 17:50 07/05/18 18:50 07/05/18 18:50 07/05/18 18:50 07/05/18 18:50 Cardiovascular: Yes: Regular Rate, Rhythm. No: Murmur Respiratory: Yes: Normal Breath Sounds. No: Accessory Muscle Use, Wheezing, Respiratory Distress Capillary Refill: Normal (Less than 2 sec) Pulses: Normal Radial, Normal Dorsalis Pedis, Normal Posterior Tibialis Skin: Warm, Dry - Invasive Reassessment (complete 2 of 4) Was a Central Venous Pressure Measurement obtained within 6 Hours after the presentation of septic shock: No Was a central venous oxygen measurement obtained within 6 hours after the presentation of septic shock: No Was a bedside cardiovascular ultrasound performed within 6 hours after the presentation of septic shock: No Fluid Challenge performed: Yes
[2018-07-05 21:15] LABS: VENOUS BLOOD GAS BASE EXCESS 8.3 mmol/L (0.0-2.0); VENOUS BLOOD GAS PO2 45 mm/Hg (30-55); VENOUS BLOOD PH 7.52 (7.32-7.43)
[2018-07-05 22:05] VITALS: BMI 20.5
[2018-07-06 00:09] VITALS: O2SAT 100
[2018-07-06] MEDS ORDERED: Magnesium Sulfate 2 gm/50 ml 2 GM/50 ML BAG IVPB ONE (00:14)
[2018-07-06] MEDS ORDERED: Potassium Chloride 20 mEq ER Tab PO ONE (00:15)
[2018-07-06] MEDS ORDERED: Sodium Chloride 0.9% 500 ML IV STA (00:54)
--- NOTE | 2018-07-06 04:02 | CP.PCM.PN ---
Subjective - Date & Time of Evaluation Date of Evaluation: 07/05/18 Time of Evaluation: 22:00 - Subjective Subjective: 87 yo female with PMH of CHF, HTN, HLD, subarachnoid hemorrhage, a. fib was admitted for PNA and respiratory distress. Patient was noted to have elevated troponin of 1.8. EKG was reviewed, nsr, no ST changes. Cardiology was contacted, recommended trending troponins and repeating EKG in the AM. Anticoagulation was not given due to history of bleed. Patient denies any chest pain, she is resting comfortably with bipap. Objective - Vital Signs/Intake and Output Vital Signs (last 24 hours): Temp Pulse Resp BP Pulse Ox 97.8 F 42 L 18 93/41 L 100 07/06/18 00:01 07/06/18 02:00 07/06/18 00:01 07/06/18 00:01 07/06/18 00:01 - Medications Medications: Current Medications Sodium Chloride (Sodium Chloride 0.9%) 1,000 mls @ 100 mls/hr IV .Q10H [facility] Last Admin: 07/05/18 17:21 Dose: 100 mls/hr - Labs Labs: 07/05/18 16:25 07/05/18 17:10 PT 12.4 SECONDS (9.4-12.5) 07/05/18 16:25 INR 1.09 07/05/18 16:25 APTT 32.3 Seconds (25.1-36.5) 07/05/18 16:25 - Constitutional Appears: No Acute Distress - Head Exam Head Exam: ATRAUMATIC, NORMOCEPHALIC - Respiratory Exam Respiratory Exam: Clear to Ausculation Bilateral, NORMAL BREATHING PATTERN. absent: Rhonchi, Wheezes, Respiratory Distress Additional comments: on bipap - Cardiovascular Exam Cardiovascular Exam: REGULAR RHYTHM. absent: Bradycardia, Tachycardia, Diastolic murmur, Murmur
[2018-07-06] MEDS: Sodium Chloride 0.9% 1,000 ML IV SCH ×3 (05:46→20:16)
--- NOTE | 2018-07-06 06:52 | CARD ---
APPROVED REPORT Date of service: 07/05/2018 EKG Measurement Heart [id number] <Conclusion> Normal sinus rhythm Possible Left atrial enlargement Borderline ECG
[2018-07-06 07:17] LABS: VENOUS BLOOD GAS BASE EXCESS 3.7 mmol/L (0.0-2.0); VENOUS BLOOD GAS PO2 47 mm/Hg (30-55); VENOUS BLOOD PH 7.39 (7.32-7.43)
--- NOTE | 2018-07-06 08:16 | CP.PCM.CON ---
<Bonnie Hoover - Last Filed: 07/06/18 10:53> History of Present Illness - History of Present Illness History of Present Illness: Infectious Disease Consult Note for Jett Yousif PGY3 This is an 87yo female with past medical history DMII, a.fib (not on anticoagulation), subarachnoid hemorrhage, HTN, CAD, multiple myeloma who came to ED for shortness of breath. Patient states she started feeling short of breath suddenly with some chest pain that does not radiate. She denies recent travel, sick contacts, fever/chills, nausea/vomiting/diarrhea, numbness/tingling, dysuria or hematuria. Past medical history: DMII, a.fib (not on anticoagulation), subarachnoid hemorrhage, HTN, CAD, multiple myeloma Past surgical history: hysterectomy, cataract surgery, proctoplasty Home meds: Reviewed Allergies: NKDA Social history: Denies tobacco, EtOH or drug use. Family history: heart problems, DM in both mom/dad - Sister: breast ca Review of Systems - Review of Systems All systems: reviewed and no additional remarkable complaints except Review of Systems: 12 point ROS reviewed as per HPI and is otherwise negative Past Patient History - Infectious Disease Hx of Infectious Diseases: None - Tetanus Immunizations Tetanus Immunization: Up to Date - Past Social History Smoking Status: Never Smoked - CARDIAC Hx Cardiac Disorders: Yes Hx Hypertension: Yes Hx Peripheral Edema: Yes - PULMONARY Hx Respiratory Disorders: Yes Hx Asthma: Yes Hx Bronchitis: Yes Hx Chronic Obstructive Pulmonary Disease (COPD): Yes Hx Pneumonia: Yes - NEUROLOGICAL Hx Neurological Disorder: No Hx Transient Ischemic Attacks (TIA): No - HEENT Hx HEENT Problems: Yes Hx Cataracts: Yes Hx Glaucoma: Yes - RENAL Hx Chronic Kidney Disease: No Hx Renal Failure: No - ENDOCRINE/METABOLIC Hx Endocrine Disorders: Yes Hx Diabetes Mellitus Type 2: Yes - HEMATOLOGICAL/ONCOLOGICAL Hx Blood Disorders: Yes Hx Anemia: Yes Hx Cancer: Yes (w/ chemo every Thursday) - INTEGUMENTARY Hx Dermatological Problems: Yes (eyeglasses) Hx Basil Cell: No Hx Eczema: No Hx Melanoma: No Hx Psoriasis: No Hx Squamous Cell: No Other/Comment: bruise and swelling lower lip/ eccymosis, redness, swelling left or bit, 4cm long red bruise mitchell left forehead - MUSCULOSKELETAL/RHEUMATOLOGICAL Hx Musculoskeletal Disorders: Yes Hx Arthritis: Yes Hx Back Pain: Yes Hx Falls: Yes - GASTROINTESTINAL Hx Gastrointestinal Disorders: No Hx Colostomy: No Hx Crohn's Disease: No Hx Diverticulitis: No Hx Gall Bladder Disease: No Hx Gastroesophageal Reflux: No Hx Ileostomy: No Hx Liver Failure: No Hx Pancreatitis: No HX Swallowing Problems: No - GENITOURINARY/GYNECOLOGICAL Hx Genitourinary Disorders: No - PSYCHIATRIC Hx Psychophysiologic Disorder: Yes Hx Anxiety: Yes - SURGICAL HISTORY Hx Cardiac Catheterization: Yes Hx Coronary Stent: Yes Hx Hysterectomy: Yes - ANESTHESIA Hx Anesthesia: Yes Hx Anesthesia Reactions: No Hx Malignant Hyperthermia: No Meds Allergies/Adverse Reactions: Allergies Allergy/AdvReac Type Severity Reaction Status Date / Time No Known Allergies Allergy Verified 09/27/17 01:46 - Medications Medications: Current Medications Aspirin (Ecotrin) 325 mg PO DAILY [facility] Atorvastatin Calcium (Lipitor) 80 mg PO HS [facility] Clopidogrel Bisulfate (Plavix) 75 mg PO DAILY [facility] Ceftriaxone Sodium (Rocephin 1 Gram Ivpb) 1 gm in 100 mls @ 100 mls/hr IVPB DAILY [facility]; Protocol Doxycycline Hyclate 100 mg/ (Sodium Chloride) 100 mls @ 100 mls/hr IVPB Q12 [facility]; Protocol Sodium Chloride (Sodium Chloride 0.9%) 1,000 mls @ 60 mls/hr IV .[id number] [facility] Sitagliptin Phosphate (Januvia) 25 mg PO DAILY [facility] Physical Exam - Constitutional Appears: No Acute Distress - Head Exam Head Exam: ATRAUMATIC, NORMAL INSPECTION, NORMOCEPHALIC - Eye Exam Eye Exam: Normal appearance, PERRL Pupil Exam: NORMAL ACCOMODATION, PERRL - ENT Exam ENT Exam: Mucous Membranes Moist - Respiratory Exam Respiratory Exam: Clear to Auscultation Bilateral, NORMAL BREATHING PATTERN. absent: Rales, Rhonchi, Wheezes, Respiratory Distress - Cardiovascular Exam Cardiovascular Exam: Bradycardia, REGULAR RHYTHM, +S1, +S2. absent: Gallop, Rubs, Systolic Murmur - GI/Abdominal Exam GI & Abdominal Exam: Normal Bowel Sounds, Soft. absent: Rebound, Rigid, Tenderness - Extremities Exam Extremities exam: Positive for: normal inspection. Negative for: calf tenderness, pedal edema - Neurological Exam Neurological exam: Alert, CN II-XII Intact - Psychiatric Exam Psychiatric exam: Normal Affect, Normal Mood - Skin Skin Exam: Dry, Warm Results - Vital Signs Recent Vital Signs: Last Vital Signs Temp 97.8 F 07/06/18 06:00 Pulse 45 L 07/06/18 06:00 Resp 19 07/06/18 06:00 BP 102/52 L 07/06/18 06:00 Pulse Ox 100 07/06/18 06:00 - Labs Result Diagrams: 07/05/18 16:25 07/06/18 09:24 Labs: Laboratory Results - last 24 hr 07/05/18 07/05/18 07/05/18 16:25 16:25 16:25 WBC 10.0 RBC 3.60 Hgb 11.2 L Hct 34.2 L MCV 95.0 MCH 31.1 MCHC 32.7 RDW 16.1 H Plt Count 278 MPV 11.6 H Gran % 84.5 H Lymph % (Auto) 6.3 L Perry % (Auto) 8.0 H Eos % (Auto) 1.0 L Baso % (Auto) 0.2 Gran # 8.47 H Lymph # (Auto) 0.6 L Perry # (Auto) 0.8 H Eos # (Auto) 0.1 Baso # (Auto) 0.02 PT 12.4 INR 1.09 APTT 32.3 pO2 48 VBG pH 7.33 VBG pCO2 65.0 H VBG HCO3 34.3 H VBG Total CO2 36.3 H VBG O2 Sat (Calc) 80.2 H VBG Base Excess 6.2 H VBG Potassium 6.7 H* Sodium 137.0 Chloride 103.0 Glucose 139 H Lactate 1.4 FiO2 21.0 Potassium Carbon Dioxide Anion Gap BUN Creatinine Est GFR ( Amer) Est GFR (Non-Af Amer) POC Glucose (mg/dL) Random Glucose Calcium Phosphorus Magnesium Total Bilirubin AST ALT Alkaline Phosphatase Troponin I NT-Pro-B Natriuret Pep Total Protein Albumin Globulin Albumin/Globulin Ratio Venous Blood Potassium 6.7 H* Urine Color Urine Appearance Urine pH Ur Specific [place] Urine Protein Urine Glucose (UA) Urine Ketones Urine Blood Urine Nitrate Urine Bilirubin Urine Urobilinogen Ur Leukocyte Esterase Urine RBC Urine WBC Ur Epithelial Cells Urine Bacteria 07/05/18 07/05/18 07/05/18 16:37 17:10 18:51 WBC RBC Hgb Hct MCV MCH MCHC RDW Plt Count MPV Gran % Lymph % (Auto) Perry % (Auto) Eos % (Auto) Baso % (Auto) Gran # Lymph # (Auto) Perry # (Auto) Eos # (Auto) Baso # (Auto) PT INR APTT pO2 VBG pH VBG pCO2 VBG HCO3 VBG Total CO2 VBG O2 Sat (Calc) VBG Base Excess VBG Potassium Sodium 141 Chloride 102 Glucose Lactate FiO2 Potassium 3.3 L Carbon Dioxide 37 H Anion Gap 5 L BUN 23 H Creatinine 1.1 Est GFR ( Amer) 57 Est GFR (Non-Af Amer) 47 POC Glucose (mg/dL) 114 H Random Glucose 136 H Calcium 7.3 L Phosphorus 2.9 Magnesium 1.3 L Total Bilirubin 0.9 AST 24 ALT 27 Alkaline Phosphatase 54 Troponin I 1.82 H* D NT-Pro-B Natriuret Pep 3630 H Total Protein 4.9 L Albumin 2.6 L Globulin 2.3 Albumin/Globulin Ratio 1.2 Venous Blood Potassium Urine Color Yellow Urine Appearance Clear Urine pH 7.0 Ur Specific [place] 1.015 Urine Protein Trace H Urine Glucose (UA) Negative Urine Ketones Negative Urine Blood Moderate H Urine Nitrate Negative Urine Bilirubin Negative Urine Urobilinogen 0.2 Ur Leukocyte Esterase Negative Urine RBC 20 - 25 Urine WBC 2 - 5 Ur Epithelial Cells 4 - 5 Urine Bacteria Small 07/05/18 07/05/18 07/06/18 21:11 23:07 06:55 WBC RBC Hgb Hct MCV MCH MCHC RDW Plt Count MPV Gran % Lymph % (Auto) Perry % (Auto) Eos % (Auto) Baso % (Auto) Gran # Lymph # (Auto) Perry # (Auto) Eos # (Auto) Baso # (Auto) PT INR APTT pO2 45 VBG pH 7.52 H VBG pCO2 39.0 L VBG HCO3 31.8 H VBG Total CO2 33.0 H VBG O2 Sat (Calc) 84.8 H VBG Base Excess 8.3 H VBG Potassium 3.9 Sodium 140.0 Chloride 105.0 Glucose 142 H Lactate 1.2 FiO2 21.0 Potassium Carbon Dioxide Anion Gap BUN Creatinine Est GFR ( Amer) Est GFR (Non-Af Amer) POC Glucose (mg/dL) Random Glucose Calcium Phosphorus Magnesium Total Bilirubin AST ALT Alkaline Phosphatase Troponin I 2.37 H* D 1.88 H* D NT-Pro-B Natriuret Pep Total Protein Albumin Globulin Albumin/Globulin Ratio Venous Blood Potassium 3.9 Urine Color Urine Appearance Urine pH Ur Specific [place] Urine Protein Urine Glucose (UA) Urine Ketones Urine Blood Urine Nitrate Urine Bilirubin Urine Urobilinogen Ur Leukocyte Esterase Urine RBC Urine WBC Ur Epithelial Cells Urine Bacteria 07/06/18 06:55 WBC RBC Hgb Hct MCV MCH MCHC RDW Plt Count MPV Gran % Lymph % (Auto) Perry % (Auto) Eos % (Auto) Baso % (Auto) Gran # Lymph # (Auto) Perry # (Auto) Eos # (Auto) Baso # (Auto) PT INR APTT pO2 47 VBG pH 7.39 VBG pCO2 49.0 VBG HCO3 29.7 H VBG Total CO2 31.2 H VBG O2 Sat (Calc) 84.0 H VBG Base Excess 3.7 H VBG Potassium 4.0 Sodium 141.0 Chloride 107.0 Glucose 95 Lactate 0.9 FiO2 21.0 Potassium Carbon Dioxide Anion Gap BUN Creatinine Est GFR ( Amer) Est GFR (Non-Af Amer) POC Glucose (mg/dL) Random Glucose Calcium Phosphorus Magnesium Total Bilirubin AST ALT Alkaline Phosphatase Troponin I NT-Pro-B Natriuret Pep Total Protein Albumin Globulin Albumin/Globulin Ratio Venous Blood Potassium 4.0 Urine Color Urine Appearance Urine pH Ur Specific [place] Urine Protein Urine Glucose (UA) Urine Ketones Urine Blood Urine Nitrate Urine Bilirubin Urine Urobilinogen Ur Leukocyte Esterase Urine RBC Urine WBC Ur Epithelial Cells Urine Bacteria Assessment & Plan - Assessment and Plan (Free Text) Assessment: 1. Sepsis - secondary to community acquired pneumonia LLL 2. NSTEMI 3. DMII 4. A.fib (not on anticoagulation) 5. HTN 6. CAD 7. Subarachnoid hemorrhage 8. Multiple myeloma Plan: Septic work up pending. Will start patient on Rocephin and Doxycycline. Repeat 2 view XR ordered as per pulm. Qtc noted to be 484. Will check for influenza and legionella. Will continue to monitor clinically. Case seen, discussed and reviewed with Dr. Rom Hoover PGY3 - Date & Time Date: 07/06/18 Time: 09:30 <Kai Cueto - Last Filed: 07/06/18 19:40> Meds - Medications Medications: Current Medications Aspirin (Ecotrin) 325 mg PO DAILY [facility] Last Admin: 07/06/18 10:00 Dose: 325 mg Atorvastatin Calcium (Lipitor) 80 mg PO HS [facility] Clopidogrel Bisulfate (Plavix) 75 mg PO DAILY [facility] Last Admin: 07/06/18 10:00 Dose: 75 mg Ceftriaxone Sodium (Rocephin 1 Gram Ivpb) 1 gm in 100 mls @ 100 mls/hr IVPB DAILY [facility]; Protocol Last Admin: 07/06/18 11:47 Dose: 100 mls/hr Doxycycline Hyclate 100 mg/ (Sodium Chloride) 100 mls @ 100 mls/hr IVPB Q12 [facility]; Protocol Last Admin: 07/06/18 10:04 Dose: 100 mls/hr Sodium Chloride (Sodium Chloride 0.9%) 1,000 mls @ 60 mls/hr IV .[id number] [facility] Last Admin: 07/06/18 08:24 Dose: 60 mls/hr Insulin Human Regular (Humulin R Med) 0 units SC ACHS [facility]; Protocol Last Admin: 07/06/18 18:28 Dose: Not Given Potassium Chloride (K-Dur 20 Meq Er Tab) 20 meq PO BID [facility] Last Admin: 07/06/18 18:33 Dose: 20 meq Sitagliptin Phosphate (Januvia) 25 mg PO DAILY [facility] Last Admin: 07/06/18 10:08 Dose: 25 mg Sotalol HCl (Betapace) 40 mg PO BID [facility] Last Admin: 07/06/18 18:32 Dose: 40 mg Results - Vital Signs Recent Vital Signs: Last Vital Signs Temp 98.4 F 07/06/18 12:00 Pulse 78 07/06/18 18:32 Resp 20 07/06/18 12:00 BP 138/68 07/06/18 18:32 Pulse Ox 100 07/06/18 06:00 - Labs Result Diagrams: 07/05/18 16:25 07/06/18 09:24 Labs: Laboratory Results - last 24 hr 07/05/18 07/05/18 07/06/18 21:11 23:07 06:55 pO2 45 VBG pH 7.52 H VBG pCO2 39.0 L VBG HCO3 31.8 H VBG Total CO2 33.0 H VBG O2 Sat (Calc) 84.8 H VBG Base Excess 8.3 H VBG Potassium 3.9 Sodium 140.0 Chloride 105.0 Glucose 142 H Lactate 1.2 FiO2 21.0 Potassium Carbon Dioxide Anion Gap BUN Creatinine Est GFR ( Amer) Est GFR (Non-Af Amer) POC Glucose (mg/dL) Random Glucose Calcium Total Bilirubin AST ALT Alkaline Phosphatase Troponin I 2.37 H* D 1.88 H* D Total Protein Albumin Globulin Albumin/Globulin Ratio Procalcitonin Venous Blood Potassium 3.9 07/06/18 07/06/18 07/06/18 06:55 06:55 08:30 pO2 47 VBG pH 7.39 VBG pCO2 49.0 VBG HCO3 29.7 H VBG Total CO2 31.2 H VBG O2 Sat (Calc) 84.0 H VBG Base Excess 3.7 H VBG Potassium 4.0 Sodium 141.0 Chloride 107.0 Glucose 95 Lactate 0.9 FiO2 21.0 Potassium Carbon Dioxide Anion Gap BUN Creatinine Est GFR ( Amer) Est GFR (Non-Af Amer) POC Glucose (mg/dL) 103 Random Glucose Calcium Total Bilirubin AST ALT Alkaline Phosphatase Troponin I Total Protein Albumin Globulin Albumin/Globulin Ratio Procalcitonin 3.64 H Venous Blood Potassium 4.0 07/06/18 07/06/18 07/06/18 09:24 11:48 18:25 pO2 VBG pH VBG pCO2 VBG HCO3 VBG Total CO2 VBG O2 Sat (Calc) VBG Base Excess VBG Potassium Sodium 139 Chloride 105 Glucose Lactate FiO2 Potassium 4.0 Carbon Dioxide 27 Anion Gap 11 BUN 25 H Creatinine 1.2 Est GFR ( Amer) 52 Est GFR (Non-Af Amer) 43 POC Glucose (mg/dL) 99 169 H Random Glucose 93 Calcium 8.1 L Total Bilirubin 0.5 AST 40 H D ALT 24 Alkaline Phosphatase 55 Troponin I Total Protein 5.4 L Albumin 2.9 L Globulin 2.5 Albumin/Globulin Ratio 1.2 Procalcitonin Venous Blood Potassium Assessment & Plan - Assessment and Plan (Free Text) Plan: Infectious Diseases Attending Physician Attestation Patient seen and examined, discussed with medical practice manager. I have reviewed the patient's history of present illness, past medical, family and social histories, personal history, physical exam, lab findings and imaging studies. I agree with the above findings, assessment and plan. In addition, we have started Rocephin and Doxycycline for probable left lower community-acquired pneumonia. Follow up blood cx and PCT. Reviewed CXR with Dr. Morris.
--- NOTE | 2018-07-06 09:07 | CON ---
DATE: 07/06/2018 PULMONARY CONSULTATION REASON FOR PULMONARY CONSULTATION: Shortness of breath. REFERRING PHYSICIAN: Dr. Estevez. History is obtained via extensive discussion with the night nurse. I have also discussed the case with the patient at length, and reviewed the chart at length. HISTORY OF PRESENT ILLNESS: The patient is a chronically ill 87-year-old female, with past medical history significant for congestive heart failure, coronary artery disease, status post cardiac stent, myocardial infarction in the past, paroxysmal atrial fibrillation, who presents to [facility] with main complaints of increasing shortness of breath at rest and dyspnea on exertion for the past 1 day. The nurse also noted a minimal cough with no sputum production. There is no history of chest pain, coughing up of blood, or chest pain - made worse with deep respirations. The patient did present with fevers to the emergency room (101.6). No history of chills or infectious exposure. No history of night sweats, weight loss or appetite change prior to the above events. No history of calf pains. No history of syncope or diaphoresis. No history of recent travel or trauma. REVIEW OF SYSTEMS: No history of nausea, vomiting or diarrhea. No acute urinary symptoms. No new neurologic or musculoskeletal complaints. Rest of the review of systems is negative. ALLERGIES: NO KNOWN ALLERGIES. SOCIAL HISTORY: Negative tobacco. Negative for alcohol. FAMILY HISTORY: No inheritable diseases. HOME MEDICATIONS: Include ProAir(PRN), Lyrica, Protonix, Cozaar, Plavix, Lipitor, Ecotrin, HydroDIURIL, Januvia, Feosol, Betapace. PHYSICAL EXAMINATION: GENERAL: The patient appears comfortable this morning. She is not short of breath at rest. VITAL SIGNS: Temperature is 97.8, pulse 45, respirations 19, blood pressure 102/52. Oxygen saturation on BiPAP is 100%. HEENT: Normocephalic, atraumatic. Positive JVD. CARDIOVASCULAR: Systolic ejection murmur at the lower left sternal border. Positive S3 gallop. LUNGS: Crackles at both bases. No rhonchi. No wheezing. EXTREMITIES: Mild edema. No cyanosis, no clubbing. Calves are nontender to palpation. GI: Abdomen is soft, nontender and nondistended. Bowel sounds are positive. SKIN: No acute rash. NEUROLOGIC: Limited at the present time. PERTINENT LABORATORY DATA: Chest x-ray was done yesterday as a portable exam. There is a left lower lobe/retrocardiac infiltrate,with pulmonary vascular congestion noted. CBC:White count 10.0K, hemoglobin 11.2, hematocrit 34.2, platelets of 278,000. Complete metabolic profile: Potassium 3.3, carbon dioxide 37, BUN 23, glucose 136, calcium 7.3, magnesium 1.3, troponin 1.82. B-type natriuretic peptide 3630. Rest of the metabolic profile is within normal limits. Peak troponin - 2.37. IMPRESSION: 1. Left lower lobe pneumonia. 2. Acute congestive heart failure. 3. [id number] myocardial infarction. 4. Mild anemia. PLAN Again, I did discuss the case with the night nurse at length. I have also reviewed the chart at length. The patient presents to [facility] with a 1-day history of increasing shortness of breath at rest and dyspnea on exertion. The night nurse also noted a very mild nonproductive cough. There are no other pulmonary symptoms reported. I did review the chest x-ray as above. There is a left lower lobe/retrocardiac infiltrate noted. Hill cultures have been ordered and will be analyzed when feasible. The patient was given intravenous antibiotics in the emergency room. I will continue with the intravenous antibiotic coverage for now. I will also order a procalcitonin - for closer evaluation of the case. I will also order a repeat chest x-ray - PA and lateral - for tomorrow (for comparison). On physical exam, there is no significant bronchospasm noted. In addition, there is no significant alveolar-arterial gradient. The patient does use an inhaler at home - only on a p.r.n. basis. I did review the laboratory results as well--above. A significant rise in the B-type nature peptide is noted. A significant rise in the troponin is also noted. The patient does have a history of coronary artery disease, and cardiac stent. Cardiology evaluation with Dr. Carvajal has been ordered. The patient appears clinically improved this morning. The nurse also confirms that the patient is much less short of breath-- compared to how she was in the beginning of the shift. However, the future status/prognosis for this elderly patient remains very guarded. I will discuss the above with Dr. Estevez in the next few moments. Thank you very much for this pulmonary consultation. Willis Morris MD [facility]
--- NOTE | 2018-07-06 09:52 | CON ---
DATE: 07/06/2018 INDICATIONS: Chest pain, shortness of breath, positive troponins. HISTORY OF PRESENT ILLNESS: This is an 87-year-old woman admitted yesterday through the emergency room when she presented with acute respiratory distress. She was found to have a pneumonia on her x-ray. She was treated with BiPAP. Her respiratory symptoms improved. Troponins were positive. She was a code sepsis. Today, she is on telemetry, resting comfortably in bed having breakfast. There is no chest pain presently. Her shortness of breath has improved. There is no orthopnea, PND, syncope, presyncope, lightheadedness, dizziness, vertigo, palpitations, edema, claudication. No fever, chills, hemoptysis, abdominal pain, nausea, vomiting, diarrhea, constipation, melena. PAST MEDICAL HISTORY: Notable for coronary artery disease with remote myocardial infarction and coronary intervention in 2012. She has paroxysmal atrial fibrillation not on anticoagulation because of a fall with a subarachnoid hemorrhage in the recent past. She has a history of diabetes, hypertension, COPD, asthma. An echocardiogram in 08/2016 revealed normal LV function with [id number] mitral regurgitation, mild tricuspid regurgitation, mild pulmonary hypertension. She has had shingles. She has a history of glaucoma. There is no prior history of congestive heart failure, rheumatic fever, stroke, TIA or gout. CURRENT MEDICATIONS: Include losartan, sotalol, Lipitor, Protonix, hydrochlorothiazide, Lyrica, ProAir, Alphagan, docusate, iron supplementation, Januvia, aspirin, Mag-Ox, Plavix. ALLERGIES: NO MEDICATION ALLERGIES REPORTED. SOCIAL HISTORY: She lives at home. She is ambulatory but limited. She does not smoke. She does not drink alcohol. FAMILY HISTORY: Not contributory. REVIEW OF SYSTEMS: Ten-point review of systems otherwise unremarkable except as noted above. PHYSICAL EXAMINATION: GENERAL: She is a well-developed elderly woman sitting on her bed in telemetry, eating breakfast, in no acute distress. VITAL SIGNS: She is in sinus rhythm, sinus bradycardia, 45-61 beats per minute, afebrile. Blood pressure 102/52, respirations 18-26, O2 sat 99-100% using BiPAP mask during the night, on nasal cannula presently. HEENT: Reveals no neck vein distention, thyromegaly, carotid bruit. Mucous membranes moist. Conjunctivae pink. NECK: Supple. LUNGS: Lung rogers, scattered rhonchi more at the left base. HEART: Examination of the heart revealed normal first and second heart sounds. There is a systolic murmur along the left sternal border. ABDOMEN: Soft. Bowel sounds present. No mass, organomegaly, tenderness, rebound, guarding, CVA tenderness, palpable abdominal aortic aneurysm. EXTREMITIES: Revealed no cyanosis, clubbing or edema. NEUROLOGIC: Awake, alert, oriented. PSYCHIATRIC: Normal as to mood and affect. SKIN: Warm and dry. No rash or cellulitis. LABORATORY AND IMAGING: The initial EKG shows sinus rhythm, left ventricular hypertrophy, nonspecific ST wave changes. Followup EKG today shows sinus bradycardia, 49 beats per minute, nonspecific ST wave changes. No acute changes are noted. The chest x-ray reveals new left lower lobe infiltrate likely pneumonia. White count 10,000, hemoglobin 11.2, hematocrit 34.2, platelet count normal. PT/INR, PTT normal. Blood gases are noted. Electrolytes notable for potassium of 3.3, BUN 23, creatinine 1.1, blood sugar 114, magnesium 1.3. LFTs unremarkable. Troponin is 1.82, repeat 2.37 repeat 1.88. BNP 3630. Urinalysis noted. IMPRESSION: Armida Harrell is an [age]-year-old woman with known coronary artery disease, remote myocardial infarction, normal left ventricular function with a 09/09/2016 echo, admitted with sudden shortness of breath, accompanied by chest pain with evidence of pneumonia, possible sepsis, positive troponins, rule out myocardial infarction. Her symptoms have improved with treatment. She is currently asymptomatic, on telemetry with no arrhythmia documented. This time, I agree with current plans. I will order an echocardiogram, repeat troponin. I will continue her cardiac meds. I will reduce her sotalol dose to 40 mg b.i.d. given her bradycardia. We will hold for pulse less than 45 beats per minute. She is getting aspirin, potassium replacement, magnesium replacement, Plavix, I will hold losartan today because of lowish blood pressure. She is getting IV fluids and antibiotics. She has been cultured. She is being seen by Surgery (for rectal prolapse), ID, Pulmonary as well as the medical team. We will monitor Is and Os. Check stool for occult blood. I will review her old records. I will follow along with you. I will make additional recommendations based on her clinical course. Jose Vera MD [facility]
[2018-07-06] MEDS: Potassium Chloride 20 mEq ER Tab PO SCH ×2 (10:00→18:33)
[2018-07-06] MEDS: Aspirin 325 mg EC Tablets PO SCH (10:00)
[2018-07-06 10:10] LABS: ALB/GLOB RATIO 1.2 (1.1-1.8); ALBUMIN 2.9 g/dL (3.0-4.8); CALCIUM 8.1 mg/dL (8.4-10.5)
[2018-07-06] MEDS: cefTRIAXone 1 gm 1 GM/100 ML BAG IVPB SCH (11:47)
[2018-07-06] MEDS: Insulin Reg-MEDIUM-Coverage SC SCH ×3 (12:00→21:31)
--- NOTE | 2018-07-06 19:53 | HP ---
DATE OF EXAM: HISTORY OF PRESENT ILLNESS: I know Armida very well and very much on top of her. She has been seen in the office for many years. She is an 87-year-old female who had acute respiratory distress, gasping for air, called 911, was tachypneic, had bibasilar rales, was given nitroglycerin in the field. She has a past medical history of CHF, hypertension, high cholesterol. 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 This was a sudden onset, also tightness in the chest, moderate severity. PAST MEDICAL HISTORY: Hypertension, CHF, peripheral edema, asthma, bronchitis, COPD, pneumonias in the past, TIAs, cataracts, glaucoma. She has diabetes. She has anemia. She had cancer with chemo every Thursday. She wears eyeglasses. She has some bruises on her lip. She has arthritis, back pain, falls, anxiety. She had coronary stent, hysterectomy. SOCIAL HISTORY: No smoker. No drinking. No drugs. ALLERGIES: NO KNOWN DRUG ALLERGIES. MEDICATIONS: She is on Lipitor, Protonix, HydroDIURIL, Lyrica, ProAir, Alphagan, Dulcolax, Feosol, Januvia, Plavix, aspirin, sotalol. REVIEW OF SYSTEMS: She has acute respiratory distress, shortness of breath. No chest pain or palpitations but there was tightness for a short period of time. No abdominal pain, nausea, vomiting, constipation, diarrhea. No acute vision or hearing changes. No sore throat. No dizziness. She had little bit of anxiety. PHYSICAL EXAMINATION: VITAL SIGNS: She has a 97.8 temperature, 53 pulse, 93/41 blood pressure, 18 respiratory rate. She was on BiPAP when she came in. She had 100% O2 sat on BiPAP. GENERAL: In bed at this time, little tachypneic, not agitated but she slept fairly well. HEENT: Head is atraumatic, normocephalic. Extraocular muscles are intact. Pupils react to light and accommodation. Throat is normal. Dry. NECK: Supple. HEART: Regular rate. Normal S1, S2. LUNGS: Decreased breath sounds, bilateral crackles, changes with cough. ABDOMEN: Soft, nontender. Positive bowel sounds. No guarding, no rebound or CVA tenderness. RECTAL: There is a rectal prolapse. It is large. It is red. It is extending out of the rectal canal. No melena. We will get Surgery to help us reduce that. EXTREMITIES: There is some trace edema to bilateral lower extremities. NEUROLOGIC: GCS is 15. Cranial nerves II through XII grossly intact. Normal speech. At rest, she is calm. Alert and oriented x3. SKIN: Warm and dry. No apparent rashes. LYMPHATICS: Thyroid midline. No palpable appreciable lymphadenopathy. LABORATORY DATA: She had multiple tests. She has 141 sodium, potassium 3.3. The potassium was replaced. BUN 20, creatinine 1.1, on IV fluids. GFR is 47, blood sugar is 114 and then 136, calcium 7.3, phosphorous 2.9, magnesium 1.3. Total bili is 0.9, AST is 24, ALT is 27, alk phos 54. Troponin I is 1.82 then went up to 2.37. She is having an NSTEMI. BNP was high at 3630. White count 10, hemoglobin 11.2, hematocrit 34.2, platelets of 278. INR is 1.09. There is multiple bacteria. Lactate was 1.4. She has multiple consults on the case. Chest x-ray showed new left lower lobe pneumonia. ASSESSMENT AND PLAN: She had dyspnea, possible congestive heart failure exacerbation, acute coronary syndrome, rule-out sepsis. She had rectal prolapse. She has an myocardial infarction. Her rotary pump operator is Dr. Carvajal. She will have Pulmonary, Infectious Disease for sepsis and Surgery for the rectal prolapse. Hopefully she will do well. She is on doxycycline. She got dose of Zosyn. She has Rocephin back on her Plavix and aspirin, Lipitor, potassium replacement. We will watch her very closely. She is 87 years old. Cornelius Estevez DO MTDD
--- NOTE | 2018-07-06 20:43 | CARD ---
APPROVED REPORT Date of service: 07/06/2018 EKG Measurement Heart [id number] <Conclusion> Marked sinus bradycardia Abnormal ECG
[2018-07-07] MEDS: Sodium Chloride 0.9% 1,000 ML IV SCH (03:00)
--- NOTE | 2018-07-07 06:56 | CP.PCM.PN ---
<Bonnie Hoover - Last Filed: 07/07/18 10:23> Subjective - Date & Time of Evaluation Date of Evaluation: 07/07/18 Time of Evaluation: 07:00 - Subjective Subjective: Infectious Disease Progress Note for Jett Yousif PGY3 Patient seen and examined at bedside. She is resting in bed comfortably without any complaints. She remains afebrile. Objective - Vital Signs/Intake and Output Vital Signs (last 24 hours): Temp Pulse Resp BP Pulse Ox 97.8 F 59 L 20 117/50 L 100 07/07/18 06:00 07/07/18 06:00 07/07/18 06:00 07/07/18 06:00 07/07/18 06:00 Intake and Output: 07/06/18 07/07/18 18:59 06:59 Intake Total 1980 840 Output Total 5 300 Balance 1975 540 - Medications Medications: Current Medications Aspirin (Ecotrin) 325 mg PO DAILY [facility] Last Admin: 07/06/18 10:00 Dose: 325 mg Atorvastatin Calcium (Lipitor) 80 mg PO HS [facility] Last Admin: 07/06/18 21:29 Dose: 80 mg Clopidogrel Bisulfate (Plavix) 75 mg PO DAILY [facility] Last Admin: 07/06/18 10:00 Dose: 75 mg Ceftriaxone Sodium (Rocephin 1 Gram Ivpb) 1 gm in 100 mls @ 100 mls/hr IVPB DAILY [facility]; Protocol Last Admin: 07/06/18 11:47 Dose: 100 mls/hr Doxycycline Hyclate 100 mg/ (Sodium Chloride) 100 mls @ 100 mls/hr IVPB Q12 RICHARD; Protocol Last Admin: 07/06/18 21:29 Dose: 100 mls/hr Sodium Chloride (Sodium Chloride 0.9%) 1,000 mls @ 60 mls/hr IV .[id number] [facility] Last Admin: 07/07/18 03:00 Dose: Not Given Insulin Human Regular (Humulin R Med) 0 units SC ACHS [facility]; Protocol Last Admin: 07/06/18 21:31 Dose: Not Given Potassium Chloride (K-Dur 20 Meq Er Tab) 20 meq PO BID [facility] Last Admin: 07/06/18 18:33 Dose: 20 meq Sitagliptin Phosphate (Januvia) 25 mg PO DAILY [facility] Last Admin: 07/06/18 10:08 Dose: 25 mg Sotalol HCl (Betapace) 40 mg PO BID [facility] Last Admin: 07/06/18 18:32 Dose: 40 mg - Labs Labs: 07/05/18 16:25 07/06/18 09:24 PT 12.4 SECONDS (9.4-12.5) 07/05/18 16:25 INR 1.09 07/05/18 16:25 APTT 32.3 Seconds (25.1-36.5) 07/05/18 16:25 - Constitutional Appears: No Acute Distress - Head Exam Head Exam: ATRAUMATIC, NORMAL INSPECTION, NORMOCEPHALIC - Eye Exam Eye Exam: Normal appearance, PERRL Pupil Exam: NORMAL ACCOMODATION, PERRL - ENT Exam ENT Exam: Mucous Membranes Moist - Respiratory Exam Respiratory Exam: Decreased Breath Sounds (on LLL), NORMAL BREATHING PATTERN. absent: Rales, Rhonchi, Wheezes - Cardiovascular Exam Cardiovascular Exam: REGULAR RHYTHM, +S1, +S2. absent: Gallop, Rubs, Murmur - GI/Abdominal Exam GI & Abdominal Exam: Soft, Normal Bowel Sounds. absent: Rigid, Tenderness, Mass, Rebound - Extremities Exam Extremities Exam: Normal Inspection. absent: Calf Tenderness, Pedal Edema - Neurological Exam Neurological Exam: Alert, Awake, CN II-XII Intact, Oriented x3 - Psychiatric Exam Psychiatric exam: Normal Affect, Normal Mood - Skin Skin Exam: Dry, Warm Assessment and Plan - Assessment and Plan (Free Text) Assessment: 1. Sepsis - secondary to community acquired pneumonia LLL 2. NSTEMI 3. DMII 4. A.fib (not on anticoagulation) 5. HTN 6. CAD 7. Hx of Subarachnoid hemorrhage 8. Multiple myeloma Plan: PCT elevated. Continue Rocephin and Doxycycline day #2. Repeat CXR pending. Urine legionella pending. Influenza negative. Will continue to monitor clinically. Case seen, discussed and reviewed with Dr. Rom Hoover PGY3 <Kai Cueto - Last Filed: 07/07/18 17:37> Objective - Vital Signs/Intake and Output Vital Signs (last 24 hours): Temp Pulse Resp BP Pulse Ox 98.2 F 65 18 154/75 H 100 07/07/18 17:32 07/07/18 17:32 07/07/18 17:32 11/14/18 17:32 07/07/18 06:00 Intake and Output: 07/07/18 07/07/18 06:59 18:59 Intake Total 840 Output Total 300 Balance 540 - Medications Medications: Current Medications Albuterol Sulfate (Albuterol 0.083% Inhal Julieta (2.5 Mg/3 Ml) Ud) 2.5 mg INH Q2H PRN PRN Reason: Shortness of Breath Last Admin: 07/07/18 15:20 Dose: 2.5 mg Aspirin (Ecotrin) 325 mg PO DAILY [facility] Last Admin: 07/07/18 10:45 Dose: 325 mg Atorvastatin Calcium (Lipitor) 80 mg PO HS [facility] Last Admin: 07/06/18 21:29 Dose: 80 mg Clopidogrel Bisulfate (Plavix) 75 mg PO DAILY [facility] Last Admin: 07/07/18 10:45 Dose: 75 mg Ceftriaxone Sodium (Rocephin 1 Gram Ivpb) 1 gm in 100 mls @ 100 mls/hr IVPB DAILY [facility]; Protocol Last Admin: 07/07/18 10:46 Dose: 100 mls/hr Doxycycline Hyclate 100 mg/ (Sodium Chloride) 100 mls @ 100 mls/hr IVPB Q12 RICHARD; Protocol Last Admin: 07/07/18 10:46 Dose: 100 mls/hr Sodium Chloride (Sodium Chloride 0.9%) 1,000 mls @ 60 mls/hr IV .[id number] [facility] Last Admin: 07/07/18 03:00 Dose: Not Given Insulin Human Regular (Humulin R Med) 0 units SC ACHS [facility]; Protocol Last Admin: 07/07/18 17:18 Dose: Not Given Potassium Chloride (K-Dur 20 Meq Er Tab) 20 meq PO BID [facility] Last Admin: 07/07/18 17:18 Dose: 20 meq Pregabalin (Lyrica) 75 mg PO BID [facility] Last Admin: 07/07/18 17:18 Dose: 75 mg Sitagliptin Phosphate (Januvia) 25 mg PO DAILY [facility] Last Admin: 07/07/18 10:45 Dose: 25 mg Sotalol HCl (Betapace) 40 mg PO BID [facility] Last Admin: 07/07/18 17:15 Dose: 40 mg - Labs Labs: 07/07/18 06:20 07/07/18 06:20 PT 12.4 SECONDS (9.4-12.5) 07/05/18 16:25 INR 1.09 07/05/18 16:25 APTT 32.3 Seconds (25.1-36.5) 07/05/18 16:25 Assessment and Plan - Assessment and Plan (Free Text) Plan: Infectious Diseases Attending Physician Attestation Patient seen and examined, discussed with medical assistant cardiology. I have reviewed the patient's history of present illness, past medical, family and social histories, personal history, physical exam, lab findings and imaging studies. I agree with the above findings, assessment and plan. In addition, continue Rocephin and DOxycycline day 2 for left lower lobe CAP. Continue to monitor clinically.
[2018-07-07 07:22] LABS: ALBUMIN 2.7 g/dL (3.0-4.8); CALCIUM 8.4 mg/dL (8.4-10.5); TROPONIN I 0.91 ng/mL
--- NOTE | 2018-07-07 07:24 | PN ---
DATE: 07/07/2018 PULMONARY NOTE DICTATION SUBJECTIVE: The patient appears comfortable this morning. She is not short of breath at rest. PHYSICAL EXAMINATION: VITAL SIGNS: Temperature is 97.8, pulse 59, respirations 20, blood pressure 117/50. Oxygen saturation on nasal cannula is 100%. HEENT: Normocephalic, atraumatic. Positive JVD. CARDIOVASCULAR: Systolic ejection murmur at the lower left sternal border. Positive S3 gallop. LUNGS: Crackles at both bases. No rhonchi. No wheezing. EXTREMITIES: Mild edema. No cyanosis, no clubbing. Calves are nontender to palpation. GI: Abdomen is soft, nontender and nondistended. Bowel sounds are positive. SKIN: No acute rash. NEUROLOGIC: Exam limited at the present time. IMPRESSION: 1. Left lower lobe pneumonia. 2. Acute congestive heart failure. 3. [id number] myocardial infarction. 4. Mild anemia. PLAN: The patient appears comfortable this morning. She is not short of breath at rest. She does state to feeling much better overall. I did discuss the case with the night nurse at length. The night nurse stated that the patient had a very good night. On physical exam, there is no significant bronchospasm noted. In addition, the oxygen saturation on nasal cannula is now 100%. The patient will continue on nasal cannula, and use the BiPAP only on a p.r.n. basis. I would continue with the current antibiotic therapy for now. Input by Infectious Disease is noted. The temperatures have now resolved. I have also ordered a repeat chest x-ray - for comparison - later today. I will check that when feasible. Input by Cardiology is also noted. Echocardiogram results are pending. Repeat a.m. labs are pending. Clinical status of the patient is significantly improved - compared to her initial status. She does remain guarded overall. I will discuss the above with Dr. Estevez. Willis Morris MD MTDD
[2018-07-07 07:41] LABS: HEMOGLOBIN 9.2 g/dL (12.0-16.0); MEAN CELL VOLUME 96.4 fl (80.0-105.0); MEAN CORPUSCULAR HEMOGLOBIN 30.4 pg (25.0-35.0); MEAN CORPUSCULAR HGB CONC 31.5 g/dl (31.0-37.0); MEAN PLATELET VOLUME 11.6 fl (7.0-11.0); RBC 3.03 10^6/uL (3.5-6.1); RED CELL DISTRIBUTION WIDTH 16.3 % (11.5-14.5)
--- NOTE | 2018-07-07 08:52 | PN ---
DATE: 07/07/2018 SUBJECTIVE: I saw her resting comfortably this morning in bed. She slept fairly well. She is more alert, little stronger maybe than yesterday. No chest pain or shortness of breath or cough at this time. No abdominal pain, has little bit of an appetite, not great. She is on Betapace, doxycycline, Ecotrin, insulin coverage, Januvia, potassium replacement, Lipitor, magnesium replacement, Plavix, Rocephin and IV fluids. PHYSICAL EXAMINATION: VITAL SIGNS: She has a 97.8 temperature, 59 pulse, 117/50 blood pressure, 20 respiratory rate and 100% O2 sat on room air. HEAD: Atraumatic, normocephalic. Throat is moist. NECK: Supple. HEART: Regular rate. LUNGS: Decreased breath sounds. Poor inspiration, but she is trying. No wheezes, rhonchi or rales, although, she does have a pneumonia. ABDOMEN: Soft, nontender. Positive bowel sounds. EXTREMITIES: No edema. LABORATORY DATA: She has a white count of 7, 9.2 hemoglobin, 29.2 hematocrit, 226 platelets. She has 140 sodium, potassium 4.2, BUN is down to 18, better; creatinine is 1.1 better. GFR is up to 47, sugar is 106, calcium is 8.4. Magnesium is 1.7, total bili is 0.5, AST is 26, ALT is 27. Alk phos 61. Troponin has dropped down to 0.91 in the right direction. Total protein is 5.3. She has multiple issues. She had an myocardial infarction, left pneumonia, acute congestive heart failure, renal insufficiency, rectal prolapse, all basically improving. I want to get her out of bed to chair. I want to get physical therapy to take a look at her to see if she does need Transitional Care Unit versus Subacute Rehab or home. She is on oxygen. We will get her out of bed to chair and hopefully, she will continue to improve with her diet as per Cardiology, Pulmonology and we will watch closely. Cornelius Estevez DO
--- NOTE | 2018-07-07 09:51 | RAD ---
Date of service: 07/07/2018 HISTORY: follow up COMPARISON: 07/05/2018 TECHNIQUE: Chest PA and lateral FINDINGS: LUNGS: Increasing interstitial markings are seen. There is an infiltrate posteriorly seen on the lateral view which is most likely in the left lung. PLEURA: No significant pleural effusion identified. No pneumothorax apparent. CARDIOVASCULAR: No aortic atherosclerotic calcification present. Normal cardiac size. No pulmonary vascular congestion. OSSEOUS STRUCTURES: No significant abnormalities. VISUALIZED UPPER ABDOMEN: Normal. OTHER FINDINGS: None. IMPRESSION: Increasing interstitial markings are seen. There is an infiltrate posteriorly seen on the lateral view which is most likely in the left lung.
[2018-07-07] MEDS: Potassium Chloride 20 mEq ER Tab PO SCH ×2 (10:44→17:18)
[2018-07-07] MEDS: Aspirin 325 mg EC Tablets PO SCH (10:45)
[2018-07-07] MEDS: cefTRIAXone 1 gm 1 GM/100 ML BAG IVPB SCH (10:46)
[2018-07-07] MEDS: Insulin Reg-MEDIUM-Coverage SC SCH ×2 (10:46→17:18)
--- NOTE | 2018-07-07 11:06 | CARD ---
APPROVED REPORT Date of service: 07/06/2018 EXAM: Two-dimensional and M-mode echocardiogram with Doppler and color Doppler. INDICATION Dyspnea Chest Pain 2D DIMENSIONS Left Atrium (2D)4.9 (1.6-4.0cm)IVSd0.8 (0.7-1.1cm) LVDd4.8 (3.9-5.9cm)PWd0.9 (0.7-1.1cm) LVDs3.2 (2.5-4.0cm)FS (%) 33.6 % LVEF (%)62.3 (>50%) M-Mode DIMENSIONS Left Atrium (MM)4.06 (2.5-4.0cm)Aortic Root2.62 (2.2-3.7cm) Aortic Cusp Exc.1.44 (1.5-2.0cm) Aortic Valve AoV Peak Dojbywsy986.9cm/Sina Peak GR.8mmHgLVOT Peak Jmcbksck586.1cm/s LVOT VTI29.83cm Mitral Valve MV E Xfnbbnup510.3cm/sMV DECEL GAYS288olHU A Xxvnlbwh25.0cm/s E/A ratio1.3 TDI E/Lateral E'0.0E/Medial E'0.0 Tricuspid Valve TR Peak [id number]/sRAP [id number] Peak Gr.37mmHg LEFT VENTRICLE The left ventricle is normal size. There is normal left ventricular wall thickness. The left ventricular function is normal. The left ventricular ejection fraction is within the normal range. There is normal LV segmental wall motion. RIGHT VENTRICLE The right ventricle is normal size. The right ventricular systolic function is normal. ATRIA The left atrium is moderately dilated. The right atrium is mildly dilated. Eustachian valve is noted in the right atrium. The interatrial septum is intact with no evidence for an atrial septal defect. AORTIC VALVE The aortic valve is mildly sclerotic. No aortic regurgitation is present. There is no aortic valvular stenosis. MITRAL VALVE Mitral annular calcification is moderate. Mitral regurgitation is mild to moderate. TRICUSPID VALVE The tricuspid valve is normal in structure. There is moderate tricuspid regurgitation. PULMONIC VALVE The pulmonary valve is normal in structure. There is mild pulmonic valvular regurgitation. GREAT VESSELS The aortic root is normal in size. The IVC is normal in size and collapses >50% with inspiration. PERICARDIAL EFFUSION There is no pleural effusion. There is no pericardial effusion. <Conclusion> Biatrial enlargement. Normal LV size and systolic function. Mild to moderate MR. Moderate TR. Mild PI.
--- NOTE | 2018-07-07 12:18 | PN ---
DATE: 07/07/2018 SUBJECTIVE: The patient is seen lying in bed on telemetry. She is currently comfortable. She is anxious to go home. Her dyspnea is improved. CURRENT MEDICATIONS: Include: 1. Albuterol inhaler. 2. Sotalol 40 mg b.i.d. 3. Doxycycline. 4. Ecotrin. 5. Insulin coverage. 6. Januvia. 7. Lipitor. 8. Plavix. 9. Potassium. 10. Rocephin. OBJECTIVE: GENERAL: She is a very elderly woman, appears comfortable at the present time. VITAL SIGNS: Blood pressure 160/50 with pulse of 60 in sinus, respirations are 16. She is afebrile. HEENT: No JVD. CHEST: Crackles and rhonchi noted at the left base. HEART: PMI displaced laterally with systolic murmur at the left sternal border. ABDOMEN: Soft, nontender with normoactive bowel sounds. EXTREMITIES: No edema. DIAGNOSTIC DATA: Troponin is 0.91, potassium 4.2, BUN and creatinine 18 and 1.1. White count 7.0, hemoglobin and hematocrit 9.2 and 29.2 with platelet count of 226,000. Chest x-ray reveals a left basilar infiltrate. Her echocardiogram revealed biatrial enlargement with normal LV size and systolic function, moderate tricuspid regurgitation and dacd-xd-[id number] mitral regurgitation. IMPRESSION: 1. Community-acquired pneumonia, clinically improved. 2. Coronary disease status post remote percutaneous coronary intervention with mild troponin elevation in the absence of chest pain and electrocardiogram changes, likely due to demand ischemia. 3. Paroxysmal atrial fibrillation, remains sinus rhythm. 4. History of multiple myeloma undergoing chronic therapy. RECOMMENDATIONS: Her current management should continue at this time. From a cardiac standpoint, she is stable for transfer to Transitional Care Unit should that be deemed necessary. We will continue to follow and make further recommendations as appropriate. Omid Carvajal MD
--- NOTE | 2018-07-07 12:47 | CP.PCM.CON ---
History of Present Illness - History of Present Illness History of Present Illness: General Surgery Consult Note for Dr. Mendoza 87 year old female, past medical history of proctoplasty, Afib, DM2, HTN, CAD, consulted for rectal prolapse. Patient unsure of when symptoms initially began as prolapse was not uncomfortable or painful. Patient does not attempt to reduce the prolapse herself. Patient denies difficulty with bowel movements or straining. Wears adult diaper. Denies fever, chills, nausea, vomiting, diarrhea, abdominal pain, rectal pain, rectal bleeding, constipation, shortness of breath, chest pain, or urinary symptoms. PMH: see above PSH: proctoplasty, hysterectomy, cataract removal FH: noncontributory SH: denies tobacco, alcohol, or illicit drugs ALL: NKDA Meds: see MAR Review of Systems - Constitutional Constitutional: absent: Chills, Fever - Cardiovascular Cardiovascular: Dyspnea. absent: Chest Pain - Respiratory Respiratory: Dyspnea. absent: Cough, Wheezing - Gastrointestinal Gastrointestinal: Fecal Incontinence. absent: Abdominal Pain, Change in Stool Character, Constipation, Diarrhea, Hematochezia, Nausea, Vomiting - Genitourinary Genitourinary: absent: Difficulty Urinating, Dysuria - Musculoskeletal Musculoskeletal: absent: Back Pain, Neck Pain - Integumentary Integumentary: absent: Bleeding Lesions, Changing Lesions - Neurological Neurological: absent: Dizziness, Headaches - Psychiatric Psychiatric: absent: Anxiety, Depression Past Patient History - Infectious Disease Hx of Infectious Diseases: None - Tetanus Immunizations Tetanus Immunization: Up to Date - Past Social History Smoking Status: Never Smoked - CARDIAC Hx Cardiac Disorders: Yes Hx Hypertension: Yes Hx Peripheral Edema: Yes - PULMONARY Hx Respiratory Disorders: Yes Hx Asthma: Yes Hx Bronchitis: Yes Hx Chronic Obstructive Pulmonary Disease (COPD): Yes Hx Pneumonia: Yes - NEUROLOGICAL Hx Neurological Disorder: No Hx Transient Ischemic Attacks (TIA): No - HEENT Hx HEENT Problems: Yes Hx Cataracts: Yes Hx Glaucoma: Yes - RENAL Hx Chronic Kidney Disease: No Hx Renal Failure: No - ENDOCRINE/METABOLIC Hx Endocrine Disorders: Yes Hx Diabetes Mellitus Type 2: Yes - HEMATOLOGICAL/ONCOLOGICAL Hx Blood Disorders: Yes Hx Anemia: Yes Hx Cancer: Yes (w/ chemo every Thursday) - INTEGUMENTARY Hx Dermatological Problems: Yes (eyeglasses) Hx Basil Cell: No Hx Eczema: No Hx Melanoma: No Hx Psoriasis: No Hx Squamous Cell: No Other/Comment: bruise and swelling lower lip/ eccymosis, redness, swelling left or bit, 4cm long red bruise mitchell left forehead - MUSCULOSKELETAL/RHEUMATOLOGICAL Hx Musculoskeletal Disorders: Yes Hx Arthritis: Yes Hx Back Pain: Yes Hx Falls: Yes - GASTROINTESTINAL Hx Gastrointestinal Disorders: No Hx Colostomy: No Hx Crohn's Disease: No Hx Diverticulitis: No Hx Gall Bladder Disease: No Hx Gastroesophageal Reflux: No Hx Ileostomy: No Hx Liver Failure: No Hx Pancreatitis: No HX Swallowing Problems: No - GENITOURINARY/GYNECOLOGICAL Hx Genitourinary Disorders: No - PSYCHIATRIC Hx Psychophysiologic Disorder: Yes Hx Anxiety: Yes - SURGICAL HISTORY Hx Cardiac Catheterization: Yes Hx Coronary Stent: Yes Hx Hysterectomy: Yes - ANESTHESIA Hx Anesthesia: Yes Hx Anesthesia Reactions: No Hx Malignant Hyperthermia: No Meds Allergies/Adverse Reactions: Allergies Allergy/AdvReac Type Severity Reaction Status Date / Time No Known Allergies Allergy Verified 09/27/17 01:46 - Medications Medications: Current Medications Albuterol Sulfate (Albuterol 0.083% Inhal Julieta (2.5 Mg/3 Ml) Ud) 2.5 mg INH Q2H PRN PRN Reason: Shortness of Breath Aspirin (Ecotrin) 325 mg PO DAILY [facility] Last Admin: 07/07/18 10:45 Dose: 325 mg Atorvastatin Calcium (Lipitor) 80 mg PO HS [facility] Last Admin: 07/06/18 21:29 Dose: 80 mg Clopidogrel Bisulfate (Plavix) 75 mg PO DAILY [facility] Last Admin: 07/07/18 10:45 Dose: 75 mg Ceftriaxone Sodium (Rocephin 1 Gram Ivpb) 1 gm in 100 mls @ 100 mls/hr IVPB DAILY [facility]; Protocol Last Admin: 07/07/18 10:46 Dose: 100 mls/hr Doxycycline Hyclate 100 mg/ (Sodium Chloride) 100 mls @ 100 mls/hr IVPB Q12 [facility]; Protocol Last Admin: 07/07/18 10:46 Dose: 100 mls/hr Sodium Chloride (Sodium Chloride 0.9%) 1,000 mls @ 60 mls/hr IV .[id number] [facility] Last Admin: 07/07/18 03:00 Dose: Not Given Insulin Human Regular (Humulin R Med) 0 units [facility]; Protocol Last Admin: 07/07/18 10:46 Dose: Not Given Potassium Chloride (K-Dur 20 Meq Er Tab) 20 meq PO BID [facility] Last Admin: 07/07/18 10:44 Dose: 20 meq Sitagliptin Phosphate (Januvia) 25 mg PO DAILY [facility] Last Admin: 07/07/18 10:45 Dose: 25 mg Sotalol HCl (Betapace) 40 mg PO BID [facility] Last Admin: 07/07/18 10:45 Dose: 40 mg Physical Exam - Constitutional Appears: Well, Non-toxic, No Acute Distress - Head Exam Head Exam: ATRAUMATIC, NORMAL INSPECTION, NORMOCEPHALIC - Eye Exam Eye Exam: EOMI - ENT Exam ENT Exam: Mucous Membranes Moist - Respiratory Exam Respiratory Exam: NORMAL BREATHING PATTERN - GI/Abdominal Exam GI & Abdominal Exam: Normal Bowel Sounds, Soft. absent: Tenderness - Rectal Exam Additional comments: Reducible prolapsed rectum - Neurological Exam Neurological exam: Alert - Psychiatric Exam Psychiatric exam: Normal Affect, Normal Mood - Skin Skin Exam: Dry, Intact, Normal Color, Warm Results - Vital Signs Recent Vital Signs: Last Vital Signs Temp 98.3 F 07/07/18 12:00 Pulse 57 L 07/07/18 12:00 Resp 18 07/07/18 12:00 BP 145/68 07/07/18 12:00 Pulse Ox 100 07/07/18 06:00 - Labs Result Diagrams: 07/07/18 06:20 07/07/18 06:20 Labs: Laboratory Results - last 24 hr 07/06/18 07/06/18 07/06/18 06:55 18:25 21:16 WBC RBC Hgb Hct MCV MCH MCHC RDW Plt Count MPV Sodium Potassium Chloride Carbon Dioxide Anion Gap BUN Creatinine Est GFR ( Amer) Est GFR (Non-Af Amer) POC Glucose (mg/dL) 169 H 194 H Random Glucose Calcium Magnesium Total Bilirubin AST ALT Alkaline Phosphatase Troponin I Total Protein Albumin Globulin Albumin/Globulin Ratio Procalcitonin 3.64 H Influenza Typ A,B (EIA) 07/07/18 07/07/18 07/07/18 03:00 06:20 06:20 WBC 7.0 D RBC 3.03 L Hgb 9.2 L D Hct 29.2 L MCV 96.4 MCH 30.4 MCHC 31.5 RDW 16.3 H Plt Count 226 MPV 11.6 H Sodium 140 Potassium 4.2 Chloride 107 Carbon Dioxide 29 Anion Gap 8 L BUN 18 Creatinine 1.1 Est GFR ( Amer) 57 Est GFR (Non-Af Amer) 47 POC Glucose (mg/dL) Random Glucose 111 H Calcium 8.4 Magnesium 1.7 Total Bilirubin 0.5 AST 26 ALT 27 Alkaline Phosphatase 61 Troponin I 0.91 H* D Total Protein 5.3 L Albumin 2.7 L Globulin 2.6 Albumin/Globulin Ratio 1.0 L Procalcitonin Influenza Typ A,B (EIA) Negative for flu a/b 07/07/18 07/07/18 07:32 11:18 WBC RBC Hgb Hct MCV MCH MCHC RDW Plt Count MPV Sodium Potassium Chloride Carbon Dioxide Anion Gap BUN Creatinine Est GFR ( Amer) Est GFR (Non-Af Amer) POC Glucose (mg/dL) 106 138 H Random Glucose Calcium Magnesium Total Bilirubin AST ALT Alkaline Phosphatase Troponin I Total Protein Albumin Globulin Albumin/Globulin Ratio Procalcitonin Influenza Typ A,B (EIA) Assessment & Plan - Assessment and Plan (Free Text) Assessment: 87F w/ easily reducible rectal prolapse Plan: Patient is asymptomatic, no discomfort secondary to the rectal prolapse Continue medical management per primary team No surgical intervention at this time D/w Dr. Reji Garcia PGY1
[2018-07-07] MEDS: Albuterol 0.083% Inhal Sol (2.5 mg/3 mL) UD INH PRN (15:20)
[2018-07-08] MEDS: Insulin Reg-MEDIUM-Coverage SC SCH (00:34)
[2018-07-08 06:56] LABS: HEMOGLOBIN 9.8 g/dL (12.0-16.0); MEAN CELL VOLUME 97.8 fl (80.0-105.0); MEAN CORPUSCULAR HEMOGLOBIN 30.6 pg (25.0-35.0); MEAN CORPUSCULAR HGB CONC 31.3 g/dl (31.0-37.0); RBC 3.2 10^6/uL (3.5-6.1); RED CELL DISTRIBUTION WIDTH 15.9 % (11.5-14.5); WHITE BLOOD COUNT 9.5 10^3/uL (4.5-11.0)
--- NOTE | 2018-07-08 07:41 | PN ---
DATE: 07/08/2018 PULMONARY NOTE SUBJECTIVE: The patient appears comfortable this morning. She is not short of breath at rest. OBJECTIVE: VITAL SIGNS: Temperature is 98.0, pulse 65, respirations 19, blood pressure 179/75. Oxygen saturation on nasal cannula is 100%. HEENT: Normocephalic, atraumatic. NECK: Positive JVD. CARDIOVASCULAR: Systolic ejection murmur at the lower left sternal border. Positive S3 gallop. LUNGS: Crackles at both bases. No rhonchi. No wheezing. EXTREMITIES: Less edema. No cyanosis, no clubbing. Calves are nontender to palpation. GI: Abdomen is soft, nontender and nondistended. Bowel sounds are positive. SKIN: No acute rash. NEUROLOGIC: Limited at the present time. PERTINENT LABORATORY DATA: Chest x-ray was repeated yesterday and reviewed. There is a mild increase in pulmonary vascular congestion - compared to the previous film. However, the left lower lobe infiltrate appears less in size and density. IMPRESSION: 1. Left lower lobe pneumonia. 2. Acute congestive heart failure. 3. [id number]-[id number] myocardial infarction. 4. Mild anemia. PLAN: The patient appears comfortable this morning. She is not short of breath at rest. She does state to feeling much better overall. I did discuss the case with the night nurse at length. The night nurse stated that the patient had a very good night. I did review the chest x-ray as above. The left lower lobe infiltrate does appear decreased in size and density. I would continue with the current antibiotic therapy for now. The temperatures have now fully resolved. The leukocytosis has also fully resolved. I would continue with the treatment for congestive heart failure and myocardial infarction as per Cardiology. Input by Dr. Carvajal is noted. Clinical status of the patient is significantly improved - compared to her initial presentation. Her overall status/prognosis does remain guarded. I will discuss the above with Dr. Estevez. Willis Morris MD [facility]
--- NOTE | 2018-07-08 08:06 | CP.PCM.PN ---
Subjective - Date & Time of Evaluation Date of Evaluation: 07/08/18 Time of Evaluation: 07:00 - Subjective Subjective: Stable on 2R. No chest pain or SOB. She feels OK. V/S noted. RSR/S. Jaxson PE: Lungs: few rhonchi Cor.: S1S2 Abd.: soft Ext.: no edema Neuro.: alert I/O= 1560/300 Labs: K+= 4.2, Cr. = 1.1, trop = 0.91 BC X 2 NG at 48 hrs. Objective - Vital Signs/Intake and Output Vital Signs (last 24 hours): Temp Pulse Resp BP Pulse Ox 98.0 F 65 19 179/75 H 100 07/08/18 06:00 07/08/18 06:00 07/08/18 06:00 07/08/18 06:00 07/08/18 06:00 Intake and Output: 07/08/18 07/08/18 06:59 18:59 Intake Total 1560 Output Total 300 Balance 1260 - Medications Medications: Current Medications Albuterol Sulfate (Albuterol 0.083% Inhal Julieta (2.5 Mg/3 Ml) Ud) 2.5 mg INH Q2H PRN PRN Reason: Shortness of Breath Last Admin: 07/07/18 15:20 Dose: 2.5 mg Aspirin (Ecotrin) 325 mg PO DAILY [facility] Last Admin: 07/07/18 10:45 Dose: 325 mg Atorvastatin Calcium (Lipitor) 80 mg PO HS [facility] Last Admin: 07/07/18 21:41 Dose: 80 mg Clopidogrel Bisulfate (Plavix) 75 mg PO DAILY [facility] Last Admin: 07/07/18 10:45 Dose: 75 mg Ceftriaxone Sodium (Rocephin 1 Gram Ivpb) 1 gm in 100 mls @ 100 mls/hr IVPB DAILY [facility]; Protocol Last Admin: 07/07/18 10:46 Dose: 100 mls/hr Doxycycline Hyclate 100 mg/ (Sodium Chloride) 100 mls @ 100 mls/hr IVPB Q12 [facility]; Protocol Last Admin: 07/07/18 21:42 Dose: 100 mls/hr Sodium Chloride (Sodium Chloride 0.9%) 1,000 mls @ 60 mls/hr IV .[id number] [facility] Last Admin: 07/07/18 03:00 Dose: Not Given Insulin Human Regular (Humulin R Med) 0 units SC ACHS [facility]; Protocol Last Admin: 07/08/18 00:34 Dose: Not Given Potassium Chloride (K-Dur 20 Meq Er Tab) 20 meq PO BID [facility] Last Admin: 07/07/18 17:18 Dose: 20 meq Pregabalin (Lyrica) 75 mg PO BID [facility] Last Admin: 07/07/18 17:18 Dose: 75 mg Sitagliptin Phosphate (Januvia) 25 mg PO DAILY [facility] Last Admin: 07/07/18 10:45 Dose: 25 mg Sotalol HCl (Betapace) 40 mg PO BID [facility] Last Admin: 07/07/18 17:15 Dose: 40 mg - Labs Labs: 07/08/18 06:00 07/07/18 06:20 PT 12.4 SECONDS (9.4-12.5) 07/05/18 16:25 INR 1.09 07/05/18 16:25 APTT 32.3 Seconds (25.1-36.5) 07/05/18 16:25 Assessment and Plan - Assessment and Plan (Free Text) Assessment: Dyspnea/Chest Pain Pneumonia + trops, R/O NSTEMI, probably demand ischemia CAD/remote MT and PCI PAF/No A/C b/o fall with SAH COPD/Asthma Diabetes HBP Echo: Nl LV fx.m Mild/Mod. MR. Mod. TR, Mod. PH MM Rectal Prolapse Glaucoma Shingles Plan: AB Pulm tx. As per Pulm., ID, Surgery, Dr. Estevez Continue cardiac meds OOB as vamsi Conservative course of cardiac care.
[2018-07-08 08:41] LABS: ALB/GLOB RATIO 1.1 (1.1-1.8); ALBUMIN 3.2 g/dL (3.0-4.8); ALT/SGPT 33 U/L (7-56); AST/SGOT 29 U/L (14-36); BLOOD UREA NITROGEN 15 mg/dL (7-21); CALCIUM 8.9 mg/dL (8.4-10.5); GFR NON-AFRICAN AMERICAN 53
--- NOTE | 2018-07-08 08:58 | DS ---
HISTORY OF PRESENT ILLNESS: She is resting comfortably in bed, a little bit better than when she came in. She is dealing with a few things. She had an CT, left pneumonia, CHF, renal insufficiency, rectal prolapse, AFib. She is being seen by Cardiology, Pulmonology, Infectious Disease, Surgery. PHYSICAL EXAMINATION: VITAL SIGNS: She has a 98 temperature, 65 pulse, 179/75 blood pressure, 19 respiratory rate, 100% O2 sat on room air. MEDICATIONS: She is on albuterol, Betapace, doxycycline, Ecotrin, insulin, Januvia, potassium, Lipitor, Lyrica, Rocephin, IV fluids. LABORATORY DATA: She has a white count 9.5, hemoglobin 9.8, hematocrit 31.3, platelets of 249,000. She has a 140 sodium, potassium 4.2, BUN is 18, creatinine 1.1. Last blood sugar was 120, calcium is 8.4, magnesium 1.7. Total bili is 0.5, AST is 26, ALT is 27, alk phos 61, last troponin is 0.91, total protein is 5.3. PLAN: The plan for her is to be transferred to TCU today if it is okay with physical therapy and the TCU. She is to continue with her cardiac rehab recovery, also her antibiotics and then she needs physical therapy. Also, see if surgery can help her with her rectal prolapse. The daughter wants her to go there. We also think she needs to have physical therapy little bit before she goes home, get physical therapy to give her recommendation. Cornelius Estevez DO
[2018-07-08] MEDS: Albuterol 0.083% Inhal Sol (2.5 mg/3 mL) UD INH PRN ×2 (09:05→13:40)
[2018-07-08] MEDS: cefTRIAXone 1 gm 1 GM/100 ML BAG IVPB SCH (10:03)
[2018-07-08] MEDS: Potassium Chloride 20 mEq ER Tab PO SCH (10:04)
[2018-07-08] MEDS: Aspirin 325 mg EC Tablets PO SCH (10:05)
[2018-07-08 11:59] VITALS: BP 158/70; RESP 18; TEMP 98.1
[2018-07-08 15:11] VITALS: PULSE 67
--- NOTE | 2018-07-08 18:39 | PN ---
DATE: 07/08/2018 SUBJECTIVE: The patient is seen in bed, in no acute distress, nontoxic. No fevers. No chills. OBJECTIVE: VITAL SIGNS: Temperature is 98, blood pressure is 150/70, and respiratory rate of 18. HEENT: Unremarkable. NECK: Supple. LUNGS: Have decreased breath sounds. HEART: Normal S1 and S2. ABDOMEN: Soft and nontender. LABORATORY DATA: Reveals a white count of 9.5, hemoglobin of 9, and platelets of 249,000. Chemistries reveals a BUN of 15 and creatinine of 1. Urinalysis is noted. Serology is reviewed. Microbiology reveals the blood cultures are no growth. Urine cultures noted. ASSESSMENT AND PLAN: This is an 87-year-old female with sepsis secondary to community-acquired pneumonia of the left lower lobe, [id number] myocardial infarction, diabetes mellitus, on ceftriaxone and doxycycline day #3 and thus far with blood cultures negative. Urine cultures multiple organisms. Influenza negative. Urinalysis unremarkable and procalcitonin which is high at 3.64 and we will check on the final culture results and urine for Legionella antigen is pending, on ceftriaxone and doxycycline. Dany Lovett MD
== END 2018-07-08 16:40 | DRG 871 ==
LOC: ED 16:10 → ERH 17:06 → 2RSO 20:27
PROVIDERS: ADMIT Family Medicine; ATTEND Family Medicine
PROC: 5A09457 Assistance with Respiratory Ventilation, 24-96 Consecutive Hours, Continuous Positive Airway Pressure (ICD-10-PCS; principal; 2018-07-05)
PROC: 3E0F7GC Introduction of Other Therapeutic Substance into Respiratory Tract, Via Natural or Artificial Opening (ICD-10-PCS; 2018-07-07)
DX: A41.9 Sepsis, unspecified organism (principal); J18.1 Lobar pneumonia, unspecified organism; I21.4 Non-ST elevation (NSTEMI) myocardial infarction; C90.00 Multiple myeloma not having achieved remission; J44.0 Chronic obstructive pulmonary disease with (acute) lower respiratory infection; R06.03 Acute respiratory distress; I11.0 Hypertensive heart disease with heart failure; I50.9 Heart failure, unspecified; E11.9 Type 2 diabetes mellitus without complications; I25.10 Atherosclerotic heart disease of native coronary artery without angina pectoris; K62.3 Rectal prolapse; D64.9 Anemia, unspecified; I08.1 Rheumatic disorders of both mitral and tricuspid valves; I27.20 Pulmonary hypertension, unspecified; I48.0 Paroxysmal atrial fibrillation; E78.00 Pure hypercholesterolemia, unspecified; I25.2 Old myocardial infarction; Z86.73 Personal history of transient ischemic attack (TIA), and cerebral infarction without residual deficits; Z95.5 Presence of coronary angioplasty implant and graft

== ENCOUNTER 2018-07-08 16:40 | Inpatient (IN) | payer OTHER, MEDICAID ==
[2018-07-08] MEDS ORDERED: Albuterol 0.083% Inhal Sol (2.5 mg/3 mL) UD INH PRN (16:55)
[2018-07-08] MEDS: Insulin Reg-MEDIUM-Coverage SC SCH ×2 (17:50→22:01)
[2018-07-08] MEDS: Potassium Chloride 20 mEq ER Tab PO SCH (18:08)
[2018-07-08] MEDS: Sodium Chloride 0.9% 1,000 ML IV SCH (18:08)
[2018-07-08 18:40] VITALS: BMI 18.3
[2018-07-08] MEDS ORDERED: Pneumococcal 23-Valent Vaccine IM ONE (18:40)
[2018-07-08] MEDS ORDERED: Influenza Vaccine 60 mcg/0.5 mL SYR (4YR UP) IM ONE (18:40)
[2018-07-09] MEDS: cefTRIAXone 1 gm 1 GM/100 ML BAG IVPB SCH (05:27)
[2018-07-09 06:18] LABS: BASO # 0.03 K/mm3 (0.0-2.0); BASO % 0.6 % (0.0-3.0); EOS # 0.1 (0.0-0.7); EOS % 2.3 % (1.5-5.0); GRAN # 3.97 (1.4-6.5); GRAN % 75.3 % (50.0-68.0); HEMOGLOBIN 9.2 g/dL (12.0-16.0); LYMPH # 0.5 (1.2-3.4); LYMPH % 10.2 % (22.0-35.0); MEAN CORPUSCULAR HEMOGLOBIN 30.6 pg (25.0-35.0); MEAN CORPUSCULAR HGB CONC 31.8 g/dl (31.0-37.0); MEAN PLATELET VOLUME 10.2 fl (7.0-11.0); MONO # 0.6 (0.1-0.6); MONO % 11.6 % (1.0-6.0); RBC 3.01 10^6/uL (3.5-6.1); RED CELL DISTRIBUTION WIDTH 15.6 % (11.5-14.5); WHITE BLOOD COUNT 5.3 10^3/uL (4.5-11.0)
[2018-07-09] MEDS: Insulin Reg-MEDIUM-Coverage SC SCH ×4 (06:35→22:08)
--- NOTE | 2018-07-09 06:36 | CP.PCM.CON ---
<Bonnie Hoover - Last Filed: 07/09/18 11:26> History of Present Illness - History of Present Illness History of Present Illness: Infectious Disease Consult Note for Jett Yousif PGY3 This is an 87yo female with past medical history DMII, a.fib (not on anticoagulation), subarachnoid hemorrhage, HTN, CAD, multiple myeloma who was admitted for community acquired pneumonia and NSTEMI. Patient reports she feels well today. She has no complaints at this time. She denies chest pain, shortness of breath, cough, fever/chills, nausea/vomiting/diarrhea, numbness/tingling, dysuria or hematuria. Past medical history: DMII, a.fib (not on anticoagulation), subarachnoid hemorrhage, HTN, CAD, multiple myeloma Past surgical history: hysterectomy, cataract surgery, proctoplasty Home meds: Reviewed Allergies: NKDA Social history: Denies tobacco, EtOH or drug use. Family history: heart problems, DM in both mom/dad - Sister: breast ca Review of Systems - Review of Systems All systems: reviewed and no additional remarkable complaints except Review of Systems: 12 point ROS reviewed as per HPI and is otherwise negative. Past Patient History - Infectious Disease Hx of Infectious Diseases: None - Tetanus Immunizations Tetanus Immunization: Up to Date - Past Social History Smoking Status: Never Smoked - CARDIAC Hx Cardiac Disorders: Yes Hx Hypertension: Yes Hx Peripheral Edema: Yes - PULMONARY Hx Respiratory Disorders: Yes Hx Asthma: Yes Hx Bronchitis: Yes Hx Chronic Obstructive Pulmonary Disease (COPD): Yes Hx Pneumonia: Yes - NEUROLOGICAL Hx Neurological Disorder: No Hx Transient Ischemic Attacks (TIA): No - HEENT Hx HEENT Problems: Yes Hx Cataracts: Yes Hx Glaucoma: Yes - RENAL Hx Chronic Kidney Disease: No Hx Renal Failure: No - ENDOCRINE/METABOLIC Hx Endocrine Disorders: Yes Hx Diabetes Mellitus Type 2: Yes - HEMATOLOGICAL/ONCOLOGICAL Hx Blood Disorders: Yes Hx Anemia: Yes Hx Cancer: Yes (w/ chemo every Thursday) - INTEGUMENTARY Hx Dermatological Problems: Yes (eyeglasses) Hx Basil Cell: No Hx Eczema: No Hx Melanoma: No Hx Psoriasis: No Hx Squamous Cell: No Other/Comment: bruise and swelling lower lip/ eccymosis, redness, swelling left or bit, 4cm long red bruise mitchell left forehead - MUSCULOSKELETAL/RHEUMATOLOGICAL Hx Falls: Yes - GASTROINTESTINAL Hx Gastrointestinal Disorders: Yes (RECTAL PROLAPSE) - GENITOURINARY/GYNECOLOGICAL Hx Genitourinary Disorders: Yes (SOME INCONTINENCY) Hx Reproductive Disorders: No - PSYCHIATRIC Hx Psychophysiologic Disorder: Yes Hx Anxiety: Yes Hx Substance Use: No - SURGICAL HISTORY Hx Cardiac Catheterization: Yes Hx Coronary Stent: Yes Hx Hysterectomy: Yes - ANESTHESIA Hx Anesthesia: Yes Hx Anesthesia Reactions: No Hx Malignant Hyperthermia: No Meds Allergies/Adverse Reactions: Allergies Allergy/AdvReac Type Severity Reaction Status Date / Time No Known Allergies Allergy Verified 07/08/18 17:05 - Medications Medications: Current Medications Albuterol Sulfate (Albuterol 0.083% Inhal Julieta (2.5 Mg/3 Ml) Ud) 2.5 mg INH Q2H PRN; Protocol PRN Reason: Shortness of Breath Aspirin (Aspirin) 325 mg PO 0800 [facility]; Protocol Atorvastatin Calcium (Lipitor) 80 mg PO HS [facility]; Protocol Last Admin: 07/08/18 22:01 Dose: 80 mg Clopidogrel Bisulfate (Plavix) 75 mg PO DAILY [facility]; Protocol Doxycycline Hyclate (Doryx) 100 mg PO Q12 [facility]; Protocol Last Admin: 07/08/18 22:01 Dose: 100 mg Ceftriaxone Sodium (Rocephin 1 Gram Ivpb) 1 gm in 100 mls @ 100 mls/hr IVPB 0600 [facility]; Protocol Stop: 07/16/18 06:59 Last Admin: 07/09/18 05:27 Dose: 100 mls/hr Sodium Chloride (Sodium Chloride 0.9%) 1,000 mls @ 60 mls/hr IV .[id number] [facility]; Protocol Last Admin: 07/08/18 18:08 Dose: 60 mls/hr Insulin Human Regular (Humulin R Med) 0 units SC ACHS [facility]; Protocol Last Admin: 07/09/18 06:35 Dose: Not Given Potassium Chloride (K-Dur 20 Meq Er Tab) 20 meq PO 0800,1800 [facility]; Protocol Last Admin: 07/08/18 18:08 Dose: Not Given Pregabalin (Lyrica) 75 mg PO BID [facility]; Protocol Last Admin: 07/08/18 18:07 Dose: 75 mg Sitagliptin Phosphate (Januvia) 25 mg PO DAILY [facility]; Protocol Sotalol HCl (Betapace) 40 mg PO BID [facility]; Protocol Last Admin: 07/08/18 18:13 Dose: 40 mg Physical Exam - Constitutional Appears: No Acute Distress - Head Exam Head Exam: ATRAUMATIC, NORMAL INSPECTION, NORMOCEPHALIC - Eye Exam Eye Exam: Normal appearance, PERRL Pupil Exam: NORMAL ACCOMODATION, PERRL - ENT Exam ENT Exam: Mucous Membranes Moist - Respiratory Exam Respiratory Exam: Clear to Auscultation Bilateral, NORMAL BREATHING PATTERN. absent: Rales, Rhonchi, Wheezes - Cardiovascular Exam Cardiovascular Exam: REGULAR RHYTHM, +S1, +S2. absent: Gallop, Rubs, Systolic Murmur - GI/Abdominal Exam GI & Abdominal Exam: Normal Bowel Sounds, Soft. absent: Mass, Rebound, Rigid, Tenderness - Extremities Exam Extremities exam: Positive for: normal inspection. Negative for: calf tenderness, pedal edema - Neurological Exam Neurological exam: Alert, CN II-XII Intact, Oriented x3 - Psychiatric Exam Psychiatric exam: Normal Affect, Normal Mood - Skin Skin Exam: Dry, Warm Results - Vital Signs Recent Vital Signs: Last Vital Signs Temp 98.5 F 07/08/18 18:19 Pulse 61 07/08/18 18:19 Resp 20 07/08/18 18:19 BP 160/73 H 07/08/18 18:19 Pulse Ox 99 07/08/18 16:40 - Labs Result Diagrams: 07/09/18 06:11 07/09/18 06:11 Labs: Laboratory Results - last 24 hr 07/09/18 06:11 WBC 5.3 D RBC 3.01 L Hgb 9.2 L Hct 28.9 L MCV 96.0 MCH 30.6 MCHC 31.8 RDW 15.6 H Plt Count 220 MPV 10.2 Gran % 75.3 H Lymph % (Auto) 10.2 L Hardin % (Auto) 11.6 H Eos % (Auto) 2.3 Baso % (Auto) 0.6 Gran # 3.97 Lymph # (Auto) 0.5 L Hardin # (Auto) 0.6 Eos # (Auto) 0.1 Baso # (Auto) 0.03 Assessment & Plan - Assessment and Plan (Free Text) Assessment: 1. Sepsis - secondary to community acquired pneumonia LLL 2. NSTEMI 3. DMII 4. A.fib (not on anticoagulation) 5. HTN 6. CAD 7. Hx of Subarachnoid hemorrhage 8. Multiple myeloma Plan: Will continue Rocephin and doxycycline day #4 to complete 7 days total. Will continue to monitor clinically. Case seen, discussed and reviewed with Dr. Rom Hoover PGY3 <Kai Cueto - Last Filed: 07/09/18 20:06> Meds - Medications Medications: Current Medications Albuterol Sulfate (Albuterol 0.083% Inhal Julieta (2.5 Mg/3 Ml) Ud) 2.5 mg INH Q2H PRN; Protocol PRN Reason: Shortness of Breath Aspirin (Aspirin) 325 mg PO 0800 [facility]; Protocol Last Admin: 07/09/18 08:42 Dose: 325 mg Atorvastatin Calcium (Lipitor) 80 mg PO HS [facility]; Protocol Last Admin: 07/08/18 22:01 Dose: 80 mg Clopidogrel Bisulfate (Plavix) 75 mg PO DAILY [facility]; Protocol Last Admin: 07/09/18 11:46 Dose: 75 mg Doxycycline Hyclate (Doryx) 100 mg PO Q12 [facility]; Protocol Last Admin: 07/09/18 11:41 Dose: 100 mg Ceftriaxone Sodium (Rocephin 1 Gram Ivpb) 1 gm in 100 mls @ 100 mls/hr IVPB 0600 [facility]; Protocol Stop: 07/16/18 06:59 Last Admin: 07/09/18 05:27 Dose: 100 mls/hr Sodium Chloride (Sodium Chloride 0.9%) 1,000 mls @ 60 mls/hr IV .[id number] [facility]; Protocol Last Admin: 07/09/18 18:26 Dose: 60 mls/hr Insulin Human Regular (Humulin R Med) 0 units SC ACHS [facility]; Protocol Last Admin: 07/09/18 18:25 Dose: Not Given Potassium Chloride (K-Dur 20 Meq Er Tab) 20 meq PO 0800,1800 [facility]; Protocol Last Admin: 07/09/18 18:25 Dose: Not Given Pregabalin (Lyrica) 75 mg PO BID [facility]; Protocol Last Admin: 07/09/18 18:29 Dose: 75 mg Sitagliptin Phosphate (Januvia) 25 mg PO DAILY [facility]; Protocol Last Admin: 07/09/18 11:44 Dose: 25 mg Sotalol HCl (Betapace) 40 mg PO BID [facility]; Protocol Last Admin: 07/09/18 18:22 Dose: 40 mg Results - Vital Signs Recent Vital Signs: Last Vital Signs Temp 98.3 F 07/09/18 16:00 Pulse 60 07/09/18 18:22 Resp 18 07/09/18 16:00 BP 147/71 07/09/18 18:22 Pulse Ox 96 07/09/18 16:00 - Labs Result Diagrams: 07/09/18 06:11 07/09/18 06:11 Labs: Laboratory Results - last 24 hr 07/08/18 07/09/18 07/09/18 21:37 05:16 06:11 WBC 5.3 D RBC 3.01 L Hgb 9.2 L Hct 28.9 L MCV 96.0 MCH 30.6 MCHC 31.8 RDW 15.6 H Plt Count 220 MPV 10.2 Gran % 75.3 H Lymph % (Auto) 10.2 L Hardin % (Auto) 11.6 H Eos % (Auto) 2.3 Baso % (Auto) 0.6 Gran # 3.97 Lymph # (Auto) 0.5 L Hardin # (Auto) 0.6 Eos # (Auto) 0.1 Baso # (Auto) 0.03 Sodium Potassium Chloride Carbon Dioxide Anion Gap BUN Creatinine Est GFR ( Amer) Est GFR (Non-Af Amer) POC Glucose (mg/dL) 117 H 91 Random Glucose Calcium Total Bilirubin AST ALT Alkaline Phosphatase Total Protein Albumin Globulin Albumin/Globulin Ratio 07/09/18 07/09/18 07/09/18 06:11 11:38 16:33 WBC RBC Hgb Hct MCV MCH MCHC RDW Plt Count MPV Gran % Lymph % (Auto) Hardin % (Auto) Eos % (Auto) Baso % (Auto) Gran # Lymph # (Auto) Hardin # (Auto) Eos # (Auto) Baso # (Auto) Sodium 142 Potassium 4.6 Chloride 111 H Carbon Dioxide 25 Anion Gap 10 BUN 15 Creatinine 1.0 Est GFR ( Amer) > 60 Est GFR (Non-Af Amer) 53 POC Glucose (mg/dL) 119 H 147 H Random Glucose 105 Calcium 8.8 Total Bilirubin 0.4 AST 22 ALT 19 Alkaline Phosphatase 65 Total Protein 5.1 L Albumin 2.6 L Globulin 2.5 Albumin/Globulin Ratio 1.0 L Assessment & Plan - Assessment and Plan (Free Text) Plan: Infectious Diseases Attending Physician Attestation Patient seen and examined, discussed with medical assisting program director. I have reviewed the patient's history of present illness, past medical, family and social histories, personal history, physical exam, lab findings and imaging studies. I agree with the above findings, assessment and plan. In addition, continue Rocephin and DOxycycline day 4 for left lower lobe CAP. Continue to monitor clinically.
--- NOTE | 2018-07-09 07:48 | PN ---
DATE: 07/09/2018 SUBJECTIVE: The patient appears comfortable this morning. She is not short of breath at rest. OBJECTIVE: VITAL SIGNS: (Last noted in the computer): Temperature is 98.5, pulse 61, respirations 20, blood pressure 160/73. Oxygen saturation on nasal cannula is 99%. HEENT: Normocephalic, atraumatic. Positive JVD. CARDIOVASCULAR: Systolic ejection murmur at the lower left sternal border. Positive S3 gallop. LUNGS: Crackles at both bases. No rhonchi. No wheezing. EXTREMITIES: Less edema. No cyanosis, no clubbing. Calves are nontender to palpation. GI: Abdomen is soft, nontender and nondistended. Bowel sounds are positive. SKIN: No acute rash. NEUROLOGIC: Limited at the present time. IMPRESSION: 1. Left lower lobe pneumonia. 2. Acute congestive heart failure. 3. [id number] myocardial infarction. 4. Mild anemia. PLAN: The patient appears comfortable this morning. She is not short of breath at rest. She does state to feeling much better overall. I did discuss the case with the night nurse at length. The night nurse stated the patient had a very good night. On physical exam, there is no significant bronchospasm noted. In addition, there is no significant alveolar-arterial gradient. I will continue the current nebulizer treatments - on a p.r.n. basis. I would continue with the current antibiotic therapy for now. The temperatures have now fully resolved. Repeat a.m. labs are pending. I would continue with the treatment for the congestive heart failure and the myocardial infarction as per Cardiology. Input by Dr. Vera is noted. The patient remains on Plavix and aspirin. Clinical status of the patient is significantly improved - compared to her initial presentation. However, her overall status/prognosis does remain guarded. I will discuss the above with Dr. Estevez. The patient is now on the Transitional Unit - where she will participate with physical therapy. Willis Morris MD CHARLIE
[2018-07-09 08:06] LABS: ALBUMIN 2.6 g/dL (3.0-4.8); ALT/SGPT 19 U/L (7-56); AST/SGOT 22 U/L (14-36); BLOOD UREA NITROGEN 15 mg/dL (7-21); CALCIUM 8.8 mg/dL (8.4-10.5); GFR NON-AFRICAN AMERICAN 53
--- NOTE | 2018-07-09 10:25 | HP ---
DATE OF EXAM: 07/09/2018 HISTORY OF PRESENT ILLNESS: I have known her for many years, Armida, she is a very nice patient. She was just in the hospital side. She was discharged to the TCU where she is now. She had a rough time there. She had an MT, left pneumonia, CHF, renal insufficiency, rectal prolapse, atrial fibrillation. She is an 87-year-old female who was short of breath into the emergency room by daughter. She is now in TCU for physical therapy, continued treatment of her issues. She has CHF, hypertension, high cholesterol also, peripheral edema, asthma, bronchitis, COPD, pneumonias in the past, TIA, cataracts, glaucoma, diabetes, anemia. She has cancer with chemo every Thursday. She wears eyeglasses. She has arthritis. She has falls, anxiety, coronary artery stent and hysterectomy for surgery. SOCIAL HISTORY: No smoking, no drinking, no drugs. ALLERGIES: NO KNOWN DRUG ALLERGIES. MEDICATIONS: She is currently on albuterol, aspirin, Betapace, doxycycline, insulin, Januvia, potassium, Lipitor, Lyrica, Plavix, Rocephin and IV fluids. REVIEW OF SYSTEMS: She was short of breath, not anymore. No chest pain, no palpitations, no tightness at this time. She had them already. No abdominal pain. No nausea, vomiting, constipation or diarrhea. No vision or hearing changes. No sore throat. No dizziness. Anxiety is also better. PHYSICAL EXAMINATION: VITAL SIGNS: She has a 98.5 temperature, 61 pulse, 160/70 blood pressure, 20 respiratory rate. GENERAL: She is seen in bed, very alert, comfortable, smiling. HEENT: Head is atraumatic, normocephalic. Extraocular muscles are intact. Pupils are equal and reactive to light and accommodation. LUNGS: Decreased breath sounds but clear to auscultation. HEART: Regular rate. Normal S1, S2. ABDOMEN: Soft, nontender. Positive bowel sounds. No CVA tenderness. No guarding. No rebound. There was a rectal prolapse, it is large but it is reducible, no pain there. EXTREMITIES: No edema in the lower extremities. NEUROLOGIC: GCS is 15. Cranial nerves II-XII are grossly intact. Alert and oriented x3. LYMPHS: Thyroid midline. No appreciable lymphadenopathy. SKIN: Warm and dry. No apparent rashes. LABORATORY DATA: She had some blood tests done. She has a 142 sodium, potassium 4.6, BUN 15, creatinine 1, GFR is 53, sugar is 105, calcium is 8.8, total bili is 0.4, AST is 22, ALT is 19, alk phos 65, total protein is 5.1. White count is 5.3, hemoglobin 9.2, hematocrit 28.9, platelets of 220,000. She is going to be seen by Infectious Disease, Pulmonary, Physical Therapy, Cardiology. Hopefully, she is very well. Cornelius Estevez DO MTDD
--- NOTE | 2018-07-09 10:45 | CP.PCM.CON ---
History of Present Illness - History of Present Illness History of Present Illness: General Surgery Consult Note for Dr. Mendoza 87 year old female, past medical history of proctoplasty, Afib, DM2, HTN, CAD, consulted for rectal prolapse. Patient unsure of when symptoms initially began as prolapse was not uncomfortable or painful. Patient does not attempt to reduce the prolapse herself. Patient denies difficulty with bowel movements or straining. Wears adult diaper. Denies fever, chills, nausea, vomiting, diarrhea, abdominal pain, rectal pain, rectal bleeding, constipation, shortness of breath, chest pain, or urinary symptoms. PMH: see above PSH: proctoplasty, hysterectomy, cataract removal FH: noncontributory SH: denies tobacco, alcohol, or illicit drugs ALL: NKDA Meds: see MAR Review of Systems - Constitutional Constitutional: absent: Chills, Fever - EENT Eyes: absent: Blurred Vision, Change in Vision Ears: absent: Ear Discharge, Ear Pain Nose/Mouth/Throat: absent: Nasal Congestion, Nasal Discharge - Cardiovascular Cardiovascular: absent: Chest Pain, Dyspnea - Respiratory Respiratory: absent: Cough, Dyspnea - Gastrointestinal Gastrointestinal: absent: Abdominal Pain, Diarrhea, Nausea, Vomiting - Musculoskeletal Musculoskeletal: absent: Back Pain, Neck Pain - Integumentary Integumentary: absent: Bleeding Lesions, Changing Lesions - Neurological Neurological: absent: Dizziness, Headaches - Psychiatric Psychiatric: absent: Anxiety, Depression Past Patient History - Infectious Disease Hx of Infectious Diseases: None - Tetanus Immunizations Tetanus Immunization: Up to Date - Past Social History Smoking Status: Never Smoked - CARDIAC Hx Cardiac Disorders: Yes Hx Hypertension: Yes Hx Peripheral Edema: Yes - PULMONARY Hx Respiratory Disorders: Yes Hx Asthma: Yes Hx Bronchitis: Yes Hx Chronic Obstructive Pulmonary Disease (COPD): Yes Hx Pneumonia: Yes - NEUROLOGICAL Hx Neurological Disorder: No Hx Transient Ischemic Attacks (TIA): No - HEENT Hx HEENT Problems: Yes Hx Cataracts: Yes Hx Glaucoma: Yes - RENAL Hx Chronic Kidney Disease: No Hx Renal Failure: No - ENDOCRINE/METABOLIC Hx Endocrine Disorders: Yes Hx Diabetes Mellitus Type 2: Yes - HEMATOLOGICAL/ONCOLOGICAL Hx Blood Disorders: Yes Hx Anemia: Yes Hx Cancer: Yes (w/ chemo every Thursday) - INTEGUMENTARY Hx Dermatological Problems: Yes (eyeglasses) Hx Basil Cell: No Hx Eczema: No Hx Melanoma: No Hx Psoriasis: No Hx Squamous Cell: No Other/Comment: bruise and swelling lower lip/ eccymosis, redness, swelling left or bit, 4cm long red bruise mitchell left forehead - MUSCULOSKELETAL/RHEUMATOLOGICAL Hx Falls: Yes - GASTROINTESTINAL Hx Gastrointestinal Disorders: Yes (RECTAL PROLAPSE) - GENITOURINARY/GYNECOLOGICAL Hx Genitourinary Disorders: Yes (SOME INCONTINENCY) Hx Reproductive Disorders: No - PSYCHIATRIC Hx Psychophysiologic Disorder: Yes Hx Anxiety: Yes Hx Substance Use: No - SURGICAL HISTORY Hx Cardiac Catheterization: Yes Hx Coronary Stent: Yes Hx Hysterectomy: Yes - ANESTHESIA Hx Anesthesia: Yes Hx Anesthesia Reactions: No Hx Malignant Hyperthermia: No Meds Allergies/Adverse Reactions: Allergies Allergy/AdvReac Type Severity Reaction Status Date / Time No Known Allergies Allergy Verified 07/08/18 17:05 - Medications Medications: Current Medications Albuterol Sulfate (Albuterol 0.083% Inhal Julieta (2.5 Mg/3 Ml) Ud) 2.5 mg INH Q2H PRN; Protocol PRN Reason: Shortness of Breath Aspirin (Aspirin) 325 mg PO 0800 [facility]; Protocol Last Admin: 07/09/18 08:42 Dose: 325 mg Atorvastatin Calcium (Lipitor) 80 mg PO HS [facility]; Protocol Last Admin: 07/08/18 22:01 Dose: 80 mg Clopidogrel Bisulfate (Plavix) 75 mg PO DAILY [facility]; Protocol Doxycycline Hyclate (Doryx) 100 mg PO Q12 [facility]; Protocol Last Admin: 07/08/18 22:01 Dose: 100 mg Ceftriaxone Sodium (Rocephin 1 Gram Ivpb) 1 gm in 100 mls @ 100 mls/hr IVPB 0600 [facility]; Protocol Stop: 07/16/18 06:59 Last Admin: 07/09/18 05:27 Dose: 100 mls/hr Sodium Chloride (Sodium Chloride 0.9%) 1,000 mls @ 60 mls/hr IV .[id number] [facility]; Protocol Last Admin: 07/08/18 18:08 Dose: 60 mls/hr Insulin Human Regular (Humulin R Med) 0 units SC ACHS [facility]; Protocol Last Admin: 07/09/18 06:35 Dose: Not Given Potassium Chloride (K-Dur 20 Meq Er Tab) 20 meq PO 0800,1800 [facility]; Protocol Last Admin: 07/08/18 18:08 Dose: Not Given Pregabalin (Lyrica) 75 mg PO BID [facility]; Protocol Last Admin: 07/08/18 18:07 Dose: 75 mg Sitagliptin Phosphate (Januvia) 25 mg PO DAILY [facility]; Protocol Sotalol HCl (Betapace) 40 mg PO BID [facility]; Protocol Last Admin: 07/08/18 18:13 Dose: 40 mg Physical Exam - Constitutional Appears: Well, Non-toxic, No Acute Distress - Head Exam Head Exam: ATRAUMATIC, NORMAL INSPECTION, NORMOCEPHALIC - Eye Exam Eye Exam: EOMI - ENT Exam ENT Exam: Mucous Membranes Moist - Respiratory Exam Respiratory Exam: NORMAL BREATHING PATTERN - GI/Abdominal Exam GI & Abdominal Exam: Normal Bowel Sounds, Soft. absent: Distended, Tenderness - Rectal Exam Additional comments: reducible rectal prolapse - Neurological Exam Neurological exam: Alert - Psychiatric Exam Psychiatric exam: Normal Affect, Normal Mood - Skin Skin Exam: Dry, Intact, Normal Color, Warm Results - Vital Signs Recent Vital Signs: Last Vital Signs Temp 98.5 F 07/08/18 18:19 Pulse 61 07/08/18 18:19 Resp 20 07/08/18 18:19 BP 160/73 H 07/08/18 18:19 Pulse Ox 99 07/08/18 16:40 - Labs Result Diagrams: 07/09/18 06:11 07/09/18 06:11 Labs: Laboratory Results - last 24 hr 07/08/18 07/09/18 07/09/18 21:37 06:11 06:11 WBC 5.3 D RBC 3.01 L Hgb 9.2 L Hct 28.9 L MCV 96.0 MCH 30.6 MCHC 31.8 RDW 15.6 H Plt Count 220 MPV 10.2 Gran % 75.3 H Lymph % (Auto) 10.2 L Rabun % (Auto) 11.6 H Eos % (Auto) 2.3 Baso % (Auto) 0.6 Gran # 3.97 Lymph # (Auto) 0.5 L Rabun # (Auto) 0.6 Eos # (Auto) 0.1 Baso # (Auto) 0.03 Sodium 142 Potassium 4.6 Chloride 111 H Carbon Dioxide 25 Anion Gap 10 BUN 15 Creatinine 1.0 Est GFR ( Amer) > 60 Est GFR (Non-Af Amer) 53 POC Glucose (mg/dL) 117 H Random Glucose 105 Calcium 8.8 Total Bilirubin 0.4 AST 22 ALT 19 Alkaline Phosphatase 65 Total Protein 5.1 L Albumin 2.6 L Globulin 2.5 Albumin/Globulin Ratio 1.0 L Assessment & Plan - Assessment and Plan (Free Text) Assessment: 87F w/ easily reducible rectal prolapse Plan: Patient is asymptomatic, no discomfort secondary to the rectal prolapse Prolapse easily reducible Continue medical management per primary team No surgical intervention at this time D/w Dr. Reji Garcia PGY1
[2018-07-09] MEDS: Potassium Chloride 20 mEq ER Tab PO SCH ×2 (14:49→18:25)
[2018-07-09] MEDS: Sodium Chloride 0.9% 1,000 ML IV SCH (18:26)
[2018-07-10] MEDS: Sodium Chloride 0.9% 1,000 ML IV SCH ×2 (06:14→11:59)
[2018-07-10] MEDS: cefTRIAXone 1 gm 1 GM/100 ML BAG IVPB SCH (06:15)
[2018-07-10] MEDS: Insulin Reg-MEDIUM-Coverage SC SCH ×4 (06:44→22:19)
--- NOTE | 2018-07-10 07:10 | PN ---
DATE: 07/10/2018 PULMONARY NOTE SUBJECTIVE: The patient appears comfortable this morning. She is not short of breath at rest. PHYSICAL EXAMINATION: VITAL SIGNS: (Last noted in the computer): Temperature is 98.3, pulse is 60, respirations 18, blood pressure 147/71. Oxygen saturation on nasal cannula is 96%-100%. HEENT: Normocephalic, atraumatic. NECK: Positive JVD. CARDIOVASCULAR: Systolic ejection murmur at the lower left sternal border. Positive S3 gallop. LUNGS: Crackles at both bases. No rhonchi. No wheezing. EXTREMITIES: Less edema. No cyanosis, no clubbing. Calves are nontender to palpation. GASTROINTESTINAL: Abdomen is soft, nontender, and nondistended. Bowel sounds are positive. SKIN: No acute rash. NEUROLOGIC: Limited at the present time. IMPRESSION: 1. Left lower lobe pneumonia. 2. Acute congestive heart failure. 3. [id number] myocardial infarction. 4. Mild anemia. PLAN: The patient appears comfortable this morning. She is not short of breath at rest. She does state to feeling better overall. On physical exam, there is no significant bronchospasm noted. In addition, the oxygen saturation on nasal cannula is now 96%-100%. I will continue with the current nebulizer treatments on a p.r.n. basis. The patient remains on antibiotic therapy. Input by Infectious Disease is noted. Temperatures have resolved. The leukocytosis has also resolved. I would continue with the treatment for congestive heart failure and acute myocardial infarction as per Cardiology. The patient remains on Plavix and aspirin. Clinical status of the patient is significantly improved - compared to initial presentation. Her future status/prognosis does remain guarded. I will discuss the above with Dr. Estevez. Willis Morris MD CHARLIE
[2018-07-10] MEDS: Potassium Chloride 20 mEq ER Tab PO SCH ×2 (08:12→17:27)
--- NOTE | 2018-07-10 09:07 | PN ---
DATE: 07/10/2018 SUBJECTIVE: She is resting comfortably out of bed to chair. She tried to eat her breakfast, she could not. She is a little short of breath, may be some dysphasia and chest discomfort. I ordered stat troponin to make sure I am not missing anything hoping the troponins are in the downwards spiral upward spiral. She was also breathing little heavy. She is on oxygen. MEDICATIONS: She is on albuterol, aspirin, Betapace, Doryx, insulin, Januvia, potassium, Lipitor, Plavix, Rocephin, IV fluids. I will add blood pressure pill to her list of medications. OBJECTIVE: VITAL SIGNS: 98.3 temperature, 84 pulse, 147/71 blood pressure, 96% O2 sat on room air. The highest blood pressure was 188/102. LABORATORY DATA: She has a 5.3 white count, 9.2 hemoglobin, 220,000 platelets. Last blood sugar is 124, 142 sodium, potassium 4.6, BUN 15, creatinine 1, GFR is 53, sugar is 105, AST is 22, ALT is 19, alk phos is 55. She is being seen by Pulmonary. Pulmonary saw her this morning and left lower lobe pneumonia, congestive heart failure, NSTEMI, modest anemia. We will give her some Norvasc this morning for the elevated blood pressure and I am waiting for the stat troponin to come back. She will continue with physical therapy and care in the TCU. She had multiple issues from an [place] to left pneumonia to CHF to rectal prolapse to AFib and hypertension. Check her labs tomorrow. Cornelius Estevez DO MTDJuan
--- NOTE | 2018-07-10 11:52 | CP.PCM.PN ---
Subjective - Date & Time of Evaluation Date of Evaluation: 07/10/18 Time of Evaluation: 09:25 - Subjective Subjective: No fevers, but feels weak. Objective - Vital Signs/Intake and Output Vital Signs (last 24 hours): Temp Pulse Resp BP Pulse Ox 98.3 F 60 18 147/71 96 07/09/18 16:00 07/09/18 18:22 07/09/18 16:00 07/09/18 18:22 07/09/18 16:00 - Medications Medications: Current Medications Albuterol Sulfate (Albuterol 0.083% Inhal Julieta (2.5 Mg/3 Ml) Ud) 2.5 mg INH Q2H PRN; Protocol PRN Reason: Shortness of Breath Aspirin (Aspirin) 325 mg PO 0800 [facility]; Protocol Last Admin: 07/09/18 08:42 Dose: 325 mg Atorvastatin Calcium (Lipitor) 80 mg PO HS [facility]; Protocol Last Admin: 07/08/18 22:01 Dose: 80 mg Clopidogrel Bisulfate (Plavix) 75 mg PO DAILY [facility]; Protocol Last Admin: 07/09/18 11:46 Dose: 75 mg Doxycycline Hyclate (Doryx) 100 mg PO Q12 [facility]; Protocol Last Admin: 07/09/18 11:41 Dose: 100 mg Ceftriaxone Sodium (Rocephin 1 Gram Ivpb) 1 gm in 100 mls @ 100 mls/hr IVPB 0600 [facility]; Protocol Stop: 07/16/18 06:59 Last Admin: 07/09/18 05:27 Dose: 100 mls/hr Sodium Chloride (Sodium Chloride 0.9%) 1,000 mls @ 60 mls/hr IV .[id number] [facility]; Protocol Last Admin: 07/09/18 18:26 Dose: 60 mls/hr Insulin Human Regular (Humulin R Med) 0 units SC ACHS [facility]; Protocol Last Admin: 07/09/18 18:25 Dose: Not Given Potassium Chloride (K-Dur 20 Meq Er Tab) 20 meq PO 0800,1800 [facility]; Protocol Last Admin: 07/09/18 18:25 Dose: Not Given Pregabalin (Lyrica) 75 mg PO BID [facility]; Protocol Last Admin: 07/09/18 18:29 Dose: 75 mg Sitagliptin Phosphate (Januvia) 25 mg PO DAILY [facility]; Protocol Last Admin: 07/09/18 11:44 Dose: 25 mg Sotalol HCl (Betapace) 40 mg PO BID [facility]; Protocol Last Admin: 07/09/18 18:22 Dose: 40 mg - Labs Labs: 07/09/18 06:11 07/09/18 06:11 - Constitutional Appears: Chronically Ill - Head Exam Head Exam: NORMAL INSPECTION - Respiratory Exam Respiratory Exam: Decreased Breath Sounds - Cardiovascular Exam Cardiovascular Exam: +S1, +S2 - GI/Abdominal Exam GI & Abdominal Exam: Soft. absent: Tenderness Assessment and Plan - Assessment and Plan (Free Text) Plan: Assessment left lower lobe CAP probable NSTEMI DM atrial fibrillation CAD HTN multiple myeloma history of subarachnoid hemorrhage Plan continue Rocephin and DOxycycline day 5 to complete 7 days follow up further plans of Cardiology overall prognosis is poor discussed with Dr. Estevez
--- NOTE | 2018-07-10 12:50 | PN ---
DATE: 07/10/2018 SUBJECTIVE: The patient is seen lying in bed on transitional care unit. She denies any chest pain. She has had some exertional dyspnea. She remains on nasal cannula oxygen. CURRENT MEDICATIONS: Her current medications include albuterol, aspirin, sotalol 40 mg b.i.d., doxycycline, insulin coverage, Januvia, potassium supplement, Lipitor 80 mg daily, Lyrica, Norvasc 2.5 mg daily, Plavix and Rocephin. PHYSICAL EXAMINATION: GENERAL: She is a frail appearing very elderly woman. VITAL SIGNS: Blood pressure is 160/90 with a pulse of 80 and regular, respirations are 16. She is afebrile. HEENT: No JVD. CHEST: Scattered rhonchi noted at the left base. HEART: The PMI is displaced laterally with soft systolic murmur at the left sternal border. ABDOMEN: Soft, nontender with normoactive bowel sounds. EXTREMITIES: No edema. LABORATORY DATA: White count is 5.3, hemoglobin and hematocrit 9.2 and 28.9 with platelet count of 220,000, potassium 4.6, BUN and creatinine 15 and 1, repeat troponin 0.27. IMPRESSION: 1. Community acquired left lower lobe pneumonia in immunocompromised host. 2. Known coronary artery disease status post remote myocardial infarction and percutaneous coronary intervention with recent mild elevation of troponin likely secondary to demand ischemia versus small zkg-RO-rdfyjul elevation myocardial infraction. 3. Multiple myeloma. 4. Anemia. 5. Paroxysmal atrial fibrillation, on sotalol. RECOMMENDATIONS: Continued conservative cardiac management is advised at this time. Continued antibiotic therapy and bronchodilator therapy for pneumonia is advised. Aspirin, Plavix, statin and beta jami therapy will continue. We will continue to follow along as needed. Omid Carvajal MD
[2018-07-10] MEDS ORDERED: Morphine 2 mg/ml ISec IVP PRN (20:07)
[2018-07-10] MEDS: Lidocaine 5% Patch TD SCH (20:24)
[2018-07-11] MEDS: cefTRIAXone 1 gm 1 GM/100 ML BAG IVPB SCH (06:04)
[2018-07-11 06:42] LABS: HEMOGLOBIN 9.8 g/dL (12.0-16.0); MEAN CELL VOLUME 94.8 fl (80.0-105.0); MEAN CORPUSCULAR HEMOGLOBIN 30.1 pg (25.0-35.0); MEAN CORPUSCULAR HGB CONC 31.7 g/dl (31.0-37.0); RBC 3.26 10^6/uL (3.5-6.1); RED CELL DISTRIBUTION WIDTH 15.2 % (11.5-14.5); WHITE BLOOD COUNT 6.8 10^3/uL (4.5-11.0)
[2018-07-11 06:58] LABS: ALB/GLOB RATIO 1.1 (1.1-1.8); ALBUMIN 2.7 g/dL (3.0-4.8); ALT/SGPT 31 U/L (7-56); AST/SGOT 22 U/L (14-36); BLOOD UREA NITROGEN 14 mg/dL (7-21); CALCIUM 8.9 mg/dL (8.4-10.5); GFR NON-AFRICAN AMERICAN 53
--- NOTE | 2018-07-11 08:26 | PN ---
DATE: 07/11/2018 PULMONARY NOTE SUBJECTIVE: The patient appears comfortable this morning. She is not short of breath at rest. OBJECTIVE: VITAL SIGNS: (Last noted in the computer): Temperature is 98.5, pulse 65, respirations 18, blood pressure 181/97. Oxygen saturation on nasal cannula is 98%. HEENT: Normocephalic, atraumatic. Positive JVD. CARDIOVASCULAR: Systolic ejection murmur at the lower left sternal border. Positive S3 gallop. LUNGS: Crackles at the bases. No rhonchi. No wheezing. EXTREMITIES: Less edema. No cyanosis, no clubbing. Calves are nontender to palpation. GI: Abdomen is soft, nontender and nondistended. Bowel sounds are positive. SKIN: No acute rash. NEUROLOGIC: Limited at the present time. IMPRESSION: 1. Left lower lobe pneumonia. 2. Acute congestive heart failure. 3. Fcp-RA-qzqxyyvqk myocardial infarction. 4. Mild anemia. PLAN: The patient appears comfortable this morning. She is not short of breath at rest. She does state to feeling better overall. I did discuss the case with the night nurse at length. The night nurse stated that the patient had a good night. Her only complaint was back pain. On physical exam, there is no significant bronchospasm noted. In addition, there is no significant alveolar-arterial gradient. I will continue with the current nebulizer treatments - ordered on a p.r.n. basis. I would also continue with the current antibiotic therapy. Temperatures have resolved. Leukocytosis has resolved. Repeat a.m. labs are pending. I would continue with the treatment for congestive heart failure and myocardial infarction as per Cardiology. Input by Dr. Carvajal is noted. The patient remains on Plavix. Clinical status of the patient is significantly improved - compared to initial presentation. She does remain very guarded overall. I will discuss the above with Dr. Estevez. Willis Morris MD MTDD
[2018-07-11] MEDS: Insulin Reg-MEDIUM-Coverage SC SCH ×4 (08:36→21:33)
[2018-07-11] MEDS: Potassium Chloride 20 mEq ER Tab PO SCH ×2 (09:51→18:06)
[2018-07-11] MEDS: Lidocaine 5% Patch TD SCH (11:16)
--- NOTE | 2018-07-11 11:28 | PN ---
DATE: 07/11/2018 SUBJECTIVE: She is in the Transitional Care Unit, I saw her this morning with her daughter. She is walking better with a walker. She is feeling a little bit better, not anxious. No shortness of breath. No chest pain. She ate okay for breakfast, better spirits. MEDICATIONS: On albuterol, aspirin, Betapace, Doryx, insulin, Januvia, potassium, Lidoderm, Lipitor, Lyrica, morphine, Norvasc, Plavix, Rocephin and IV fluids. She has had some back pain which has now left her. I ordered a troponin yesterday, was 0.27 down from 0.9 because she had some discomfort and was actually in the right direction. PHYSICAL EXAMINATION: VITAL SIGNS: She has 98.5 temperature, 65 pulse, 186/85 blood pressure, 18 respiratory rate, 90% O2 sat on 2 liters. HEENT: Head: Atraumatic, normocephalic. HEART: Regular rate. LUNGS: Decreased breath sounds but they are clear. ABDOMEN: Soft, nontender. Positive bowel sounds. EXTREMITIES: No edema. I will increase her Norvasc from 2.5 to 5 because the blood pressure is still little bit high. LABORATORY DATA: She has a 6.8 white count, 9.8 hemoglobin, 30.9 hematocrit with 254,000 platelets. Sodium 140, potassium 4.7, BUN 40, creatinine 1, GFR is greater than 60, sugar is 116. Calcium is 8.9, total bili is 0.5, AST is 22, ALT is 31, alk phos 73, total protein 5.3 and the troponin is 0.27 and is coming down from 0.9. She is being seen by Pulmonology, Infectious Disease, Cardiology. She is having multiple problems from an [place] because of pneumonia to CHF to rectal prolapse to atrial fibrillation to hypertension, mild anemia and increase her Norvasc to 5 mg with mildly elevated blood pressure and check her labs tomorrow. Discussed with the daughter at length. Answered lots of questions from the daughter, hopefully will start to feel better, better situation. Cornelius Estevez DO [facility] # [id number]
--- NOTE | 2018-07-11 12:08 | CP.PCM.PN ---
Subjective - Date & Time of Evaluation Date of Evaluation: 07/11/18 Time of Evaluation: 10:10 - Subjective Subjective: Feeling a little better, no fevers, no cough currently. Objective - Vital Signs/Intake and Output Vital Signs (last 24 hours): Temp Pulse Resp BP Pulse Ox 98.3 F 84 18 165/95 H 96 07/09/18 16:00 07/10/18 08:09 07/09/18 16:00 07/10/18 09:11 07/09/18 16:00 - Medications Medications: Current Medications Albuterol Sulfate (Albuterol 0.083% Inhal Julieta (2.5 Mg/3 Ml) Ud) 2.5 mg INH Q2H PRN; Protocol PRN Reason: Shortness of Breath Last Admin: 07/10/18 08:33 Dose: 2.5 mg Amlodipine Besylate (Norvasc) 2.5 mg PO DAILY [facility] Last Admin: 07/10/18 09:11 Dose: 2.5 mg Aspirin (Aspirin) 325 mg PO 0800 [facility]; Protocol Last Admin: 07/10/18 08:09 Dose: 325 mg Atorvastatin Calcium (Lipitor) 80 mg PO HS [facility]; Protocol Last Admin: 07/09/18 21:34 Dose: 80 mg Clopidogrel Bisulfate (Plavix) 75 mg PO DAILY [facility]; Protocol Last Admin: 07/10/18 09:10 Dose: 75 mg Doxycycline Hyclate (Doryx) 100 mg PO Q12 [facility]; Protocol Last Admin: 07/10/18 09:10 Dose: 100 mg Ceftriaxone Sodium (Rocephin 1 Gram Ivpb) 1 gm in 100 mls @ 100 mls/hr IVPB 0600 [facility]; Protocol Stop: 07/16/18 06:59 Last Admin: 07/10/18 06:15 Dose: 100 mls/hr Sodium Chloride (Sodium Chloride 0.9%) 1,000 mls @ 40 mls/hr IV .Q24H [facility]; Protocol Insulin Human Regular (Humulin R Med) 0 units SC ACHS [facility]; Protocol Last Admin: 07/10/18 06:44 Dose: Not Given Potassium Chloride (K-Dur 20 Meq Er Tab) 20 meq PO 0800,1800 [facility]; Protocol Last Admin: 07/10/18 08:12 Dose: 20 meq Pregabalin (Lyrica) 75 mg PO BID [facility]; Protocol Last Admin: 07/10/18 09:10 Dose: 75 mg Sitagliptin Phosphate (Januvia) 25 mg PO DAILY [facility]; Protocol Last Admin: 07/10/18 09:11 Dose: 25 mg Sotalol HCl (Betapace) 40 mg PO BID [facility]; Protocol Last Admin: 07/10/18 09:11 Dose: 40 mg - Labs Labs: 07/09/18 06:11 07/09/18 06:11 - Constitutional Appears: Chronically Ill - Head Exam Head Exam: NORMAL INSPECTION - Respiratory Exam Respiratory Exam: Decreased Breath Sounds - Cardiovascular Exam Cardiovascular Exam: +S1, +S2 - GI/Abdominal Exam GI & Abdominal Exam: Soft. absent: Tenderness Assessment and Plan - Assessment and Plan (Free Text) Plan: Assessment left lower lobe CAP probable NSTEMI DM atrial fibrillation CAD HTN multiple myeloma history of subarachnoid hemorrhage Plan continue Rocephin and DOxycycline day 6 to complete 7 days follow up further plans of Cardiology overall prognosis is poor discussed with Dr. Estevez
[2018-07-11] MEDS: Sodium Chloride 0.9% 1,000 ML IV SCH (18:13)
[2018-07-12] MEDS: cefTRIAXone 1 gm 1 GM/100 ML BAG IVPB SCH (05:28)
[2018-07-12] MEDS: Insulin Reg-MEDIUM-Coverage SC SCH ×4 (07:05→22:04)
[2018-07-12 07:30] LABS: MEAN CELL VOLUME 94.5 fl (80.0-105.0); MEAN CORPUSCULAR HEMOGLOBIN 30.8 pg (25.0-35.0); MEAN CORPUSCULAR HGB CONC 32.6 g/dl (31.0-37.0); RBC 3.25 10^6/uL (3.5-6.1); RED CELL DISTRIBUTION WIDTH 15.5 % (11.5-14.5); WHITE BLOOD COUNT 6.5 10^3/uL (4.5-11.0)
--- NOTE | 2018-07-12 07:34 | PN ---
DATE: 07/12/2018 PULMONARY NOTE SUBJECTIVE: The patient appears comfortable this morning. She is not short of breath at rest. PHYSICAL EXAMINATION: VITALS (Last noted in the computer): Temperature is 98.3, pulse 76, respirations 18-20, blood pressure 137/78, and oxygen saturation on nasal cannula is 100%. HEENT: Normocephalic, atraumatic. Positive JVD. CARDIOVASCULAR: Systolic ejection murmur at the lower left sternal border. Positive S3 gallop. LUNGS: Crackles at both bases. No rhonchi. No wheezing. EXTREMITIES: Less edema. No cyanosis, no clubbing. Calves are nontender to palpation. GASTROINTESTINAL: Abdomen is soft, nontender, and nondistended. Bowel sounds are positive. SKIN: No acute rash. NEUROLOGIC: Limited at the present time. IMPRESSION: 1. Left lower lobe pneumonia. 2. Acute congestive heart failure. 3. Zae-XX-lzojnccum myocardial infarction. 4. Mild anemia. PLAN: The patient appears comfortable this morning. She is not short of breath at rest. She does state to feeling better overall. I did discuss the case with the night nurse at length. The night nurse stated that the patient had a good night. On physical exam, there is no significant bronchospasm noted. In addition, there is no significant alveolar-arterial gradient. I will continue the current nebulizer treatments - on a p.r.n. basis. The patient remains on antibiotic therapy - input by Infectious Disease is noted. The temperatures have fully resolved. There is no leukocytosis. Input by Cardiology is also noted. CLINICAL STATUS: The patient is significantly improved - compared to the initial presentation. Her future status/prognosis does remain very guarded. I will discuss the above with Dr. Estevez. Willis Morris MD MTDJuan
[2018-07-12 07:47] LABS: ALBUMIN 2.7 g/dL (3.0-4.8); ALT/SGPT 27 U/L (7-56); AST/SGOT 22 U/L (14-36); BLOOD UREA NITROGEN 13 mg/dL (7-21); CALCIUM 8.7 mg/dL (8.4-10.5); GFR NON-AFRICAN AMERICAN 59
[2018-07-12] MEDS: Potassium Chloride 20 mEq ER Tab PO SCH ×2 (08:36→17:57)
--- NOTE | 2018-07-12 09:36 | PN ---
DATE: 07/12/2018 SUBJECTIVE: She is complaining of left ear issues this morning. I will get the ear, nose and throat doctor to take a look at her. She is on albuterol, aspirin, Betapace, Doryx, insulin, Januvia, potassium, Lidoderm, Lipitor, Lyrica, morphine, Norvasc, Plavix and Rocephin. PHYSICAL EXAMINATION: VITAL SIGNS: She has a 98.3 temp, 76 pulse, 137/68 blood pressure, 20 respiratory rate, 100% O2 sat on nasal cannula. HEENT: Head is atraumatic, normocephalic. HEART: Regular rate. LUNGS: Clear to auscultation. ABDOMEN: Soft. EXTREMITIES: No edema. LABORATORY DATA: She is doing a lot better. She has 6.5 white count, 10 hemoglobin, 30.7 hematocrit with 236 platelets, 138 sodium, potassium 4.8, BUN 30, creatinine 0.9, GFR 4 is greater than 60. Sugar is 115, calcium is 8.7, total bili is 0.4, AST is 22, ALT is 27, alk phos 69. ASSESSMENT AND PLAN: I will consult ENT to evaluate her ears. I could not see much long and she is on Rocephin and see what they think, otherwise, she is out of bed to chair. She is trying physical therapy. She is eating better and we will see how she does. We will continue with treatment and care. Cornelius Estevez DO
[2018-07-12] MEDS: Lidocaine 5% Patch TD SCH (10:41)
--- NOTE | 2018-07-12 12:25 | CP.PCM.PN ---
Subjective - Date & Time of Evaluation Date of Evaluation: 07/12/18 Time of Evaluation: 09:55 - Subjective Subjective: Comfortable on a chair, no fevers. No SOB at rest. Objective - Vital Signs/Intake and Output Vital Signs (last 24 hours): Temp Pulse Resp BP Pulse Ox 98.5 F 67 18 156/83 H 98 07/10/18 16:00 07/11/18 11:14 07/10/18 16:00 07/11/18 11:14 07/10/18 16:00 - Medications Medications: Current Medications Albuterol Sulfate (Albuterol 0.083% Inhal Julieta (2.5 Mg/3 Ml) Ud) 2.5 mg INH Q2H PRN; Protocol PRN Reason: Shortness of Breath Last Admin: 07/10/18 08:33 Dose: 2.5 mg Amlodipine Besylate (Norvasc) 5 mg PO DAILY [facility] Aspirin (Aspirin) 325 mg PO 0800 [facility]; Protocol Last Admin: 07/11/18 09:50 Dose: 325 mg Atorvastatin Calcium (Lipitor) 80 mg PO HS [facility]; Protocol Last Admin: 07/10/18 21:53 Dose: 80 mg Clopidogrel Bisulfate (Plavix) 75 mg PO DAILY [facility]; Protocol Last Admin: 07/11/18 11:17 Dose: 75 mg Doxycycline Hyclate (Doryx) 100 mg PO Q12 [facility]; Protocol Last Admin: 07/11/18 11:15 Dose: 100 mg Ceftriaxone Sodium (Rocephin 1 Gram Ivpb) 1 gm in 100 mls @ 100 mls/hr IVPB 0600 [facility]; Protocol Stop: 07/16/18 06:59 Last Admin: 07/11/18 06:04 Dose: 100 mls/hr Sodium Chloride (Sodium Chloride 0.9%) 1,000 mls @ 40 mls/hr IV .Q24H [facility]; Protocol Last Admin: 07/10/18 11:59 Dose: 40 mls/hr Insulin Human Regular (Humulin R Med) 0 units SC ACHS [facility]; Protocol Last Admin: 07/11/18 08:36 Dose: Not Given Lidocaine (Lidoderm) 1 ea TD 1000 [facility] Last Admin: 07/11/18 11:16 Dose: 1 ea Morphine Sulfate (Morphine) 1 mg IVP Q4H PRN; Protocol PRN Reason: severe pain Last Admin: 07/10/18 20:25 Dose: 1 mg Potassium Chloride (K-Dur 20 Meq Er Tab) 20 meq PO 0800,1800 [facility]; Protocol Last Admin: 07/11/18 09:51 Dose: 20 meq Pregabalin (Lyrica) 75 mg PO BID [facility]; Protocol Last Admin: 07/11/18 11:22 Dose: 75 mg Sitagliptin Phosphate (Januvia) 25 mg PO DAILY [facility]; Protocol Last Admin: 07/11/18 11:15 Dose: 25 mg Sotalol HCl (Betapace) 40 mg PO BID [facility]; Protocol Last Admin: 07/11/18 11:14 Dose: 40 mg - Labs Labs: 07/11/18 06:30 07/11/18 06:30 - Constitutional Appears: Chronically Ill - Head Exam Head Exam: NORMAL INSPECTION - Neck Exam Neck Exam: absent: Meningismus - Respiratory Exam Respiratory Exam: Decreased Breath Sounds - Cardiovascular Exam Cardiovascular Exam: +S1, +S2 - GI/Abdominal Exam GI & Abdominal Exam: Soft. absent: Tenderness Assessment and Plan - Assessment and Plan (Free Text) Plan: Assessment left lower lobe CAP probable NSTEMI DM atrial fibrillation CAD HTN multiple myeloma history of subarachnoid hemorrhage Plan continue Rocephin and DOxycycline day 7 to complete 7 days follow up further plans of Cardiology overall prognosis is poor discussed with Dr. Estevez
[2018-07-13] MEDS: cefTRIAXone 1 gm 1 GM/100 ML BAG IVPB SCH (05:37)
[2018-07-13] MEDS: Insulin Reg-MEDIUM-Coverage SC SCH ×4 (06:48→21:00)
[2018-07-13] MEDS: Potassium Chloride 20 mEq ER Tab PO SCH ×2 (09:00→18:02)
--- NOTE | 2018-07-13 09:33 | PN ---
DATE: 07/13/2018 PULMONARY NOTE SUBJECTIVE: The patient appears comfortable this morning. She is not short of breath at rest. OBJECTIVE: VITAL SIGNS (Last noted in the computer): Temperature is 98.4, pulse 67, respirations 18/20, blood pressure 138/69. Oxygen saturation on nasal cannula is 95%-100%. HEENT: Normocephalic, atraumatic. Positive JVD. CARDIOVASCULAR: Systolic ejection murmur at the lower left sternal border. Positive S3 gallop. LUNGS: Crackles at both bases. No rhonchi. No wheezing. EXTREMITIES: Less edema. No cyanosis, no clubbing. Calves are nontender to palpation. GASTROINTESTINAL: Abdomen is soft, nontender and nondistended. Bowel sounds are positive. SKIN: No acute rash. NEUROLOGIC: Limited at the present time. IMPRESSION: 1. Left lower lobe pneumonia. 2. Acute congestive heart failure. 3. Jiq-XA-kdcbjumzj myocardial infarction. 4. Mild anemia. PLAN: The patient appears comfortable this morning. She is not short of breath at rest. She does state to feeling better overall. On physical exam, there is no significant bronchospasm noted. In addition, the oxygen saturation on nasal cannula is 95%-100%. I will continue the current nebulizer treatments - on a p.r.n. basis. The patient remains on antibiotic therapy. Input by Infectious Disease is noted. Temperatures have resolved. The leukocytosis has also resolved. I would continue with the treatment for acute congestive heart failure and myocardial infarction as per cardiology. The patient remains on oral Plavix. Clinical status of the patient is significantly improved - compared to the initial presentation. Her overall status/prognosis does remain guarded. I will discuss the above with Dr. Estevez. Willis Morris MD MTDD
[2018-07-13] MEDS: Lidocaine 5% Patch TD SCH (09:34)
--- NOTE | 2018-07-13 10:18 | PN ---
DATE: 07/13/2018 SUBJECTIVE: I saw her sitting out of bed to chair. She is quite comfortable this morning. She is eating well, in good spirits, trying physical therapy. No chest pain, no shortness of breath. No abdominal pain. One of the better day. She is each day getting better and better. She is on albuterol, aspirin, Betapace, Doryx, insulin, Januvia, potassium, Lasix, Lidoderm, Lipitor, Lyrica, morphine, Norvasc, Plavix and Rocephin. PHYSICAL EXAMINATION: VITAL SIGNS: She has a 98.4 temp, 67 pulse, 138/69 blood pressure, 95% O2 sat on nasal cannula. HEENT: Head is atraumatic, normocephalic. HEART: Regular rate. LUNGS: Decreased breath sounds, but clear. ABDOMEN: Soft, nontender. Positive bowel sounds. EXTREMITIES: Have no edema. LABORATORY DATA: She has a 6.5 white count, 10 hemoglobin, 236 platelets that was yesterday. 138 sodium, potassium 4.8, BUN 13, creatinine 0.9, GFR is 59, sugar is 114, calcium is 8.7, total bili is 0.4, AST is 22, ALT is 27, alk phos 69, total protein is 5.3. ASSESSMENT AND PLAN: She is overall doing well. She is being seen by Infectious Disease and Pulmonology. She is on Rocephin and doxycycline day 7 of 7 days, follow up with Cardiology. She has left lower lobe community acquired pneumonia, probable non-ST elevation myocardial infarction, diabetes, atrial fibrillation, coronary artery disease, hypertension, multiple myeloma, history of subarachnoid hemorrhage. We will continue with aggressive treatment and care, physical therapy and check her labs tomorrow. Cornelius Estevez DO
[2018-07-13] MEDS ORDERED: Loperamide Hydrochloride 1 mg/5 ml Cup PO STA (20:10)
--- NOTE | 2018-07-13 20:23 | PN ---
DATE: 07/13/2018 SUBJECTIVE: The patient is seen in bed, in no acute distress, nontoxic. No fevers and no chills. OBJECTIVE: VITAL SIGNS: Temperature is 98, blood pressure is 143/60, and respiratory rate of 18. HEENT: Unremarkable. NECK: Supple. LUNGS: Have decreased breath sounds. HEART: Normal S1 and S2. ABDOMEN: Soft. LABORATORY DATA: Reveals a white count of 6.5, hemoglobin of 10, and platelets of 236,000. Microbiology is noted. ASSESSMENT AND PLAN: This is an 87-year-old female seen earlier today with a left lower lobe community-acquired pneumonia, jaj-DK-heuwioehi myocardial infarction, diabetes, atrial fibrillation and completed 7 days of ceftriaxone and doxycycline and currently on p.o. doxycycline and IV ceftriaxone, today is day #8. We will discuss with Dr. Cornelius Estevez regarding discontinuation of the antibiotics. Dany Lovett MD
[2018-07-14] MEDS: cefTRIAXone 1 gm 1 GM/100 ML BAG IVPB SCH (05:47)
[2018-07-14] MEDS: Insulin Reg-MEDIUM-Coverage SC SCH ×4 (06:39→21:38)
[2018-07-14 06:49] LABS: HEMOGLOBIN 10.1 g/dL (12.0-16.0); MEAN CELL VOLUME 94.8 fl (80.0-105.0); MEAN CORPUSCULAR HEMOGLOBIN 30.7 pg (25.0-35.0); MEAN CORPUSCULAR HGB CONC 32.4 g/dl (31.0-37.0); MEAN PLATELET VOLUME 9.8 fl (7.0-11.0); RBC 3.29 10^6/uL (3.5-6.1); RED CELL DISTRIBUTION WIDTH 15.4 % (11.5-14.5)
[2018-07-14 07:26] LABS: ALB/GLOB RATIO 1.1 (1.1-1.8); ALBUMIN 2.8 g/dL (3.0-4.8); CALCIUM 8.3 mg/dL (8.4-10.5)
--- NOTE | 2018-07-14 07:34 | PN ---
DATE: 07/14/2018 PULMONARY NOTE SUBJECTIVE: The patient appears very comfortable this morning. She is not short of breath at rest. PHYSICAL EXAMINATION VITAL SIGNS: Last temperature recorded is 98.4. Pulse is 70, respirations 18, blood pressure 128/70. Oxygen saturation on nasal cannula is 95-98%. HEENT: Normocephalic, atraumatic. Positive JVD. CARDIOVASCULAR: Systolic ejection murmur at the lower left sternal border. Positive S3 gallop. LUNGS: Minimal crackles at the bases. Otherwise clear. EXTREMITIES: Less edema. No cyanosis, no clubbing. Calves are nontender to palpation. GI: Abdomen is soft, nontender and nondistended. Bowel sounds are positive. SKIN: No acute rash. NEUROLOGIC: Exam limited at the present time. IMPRESSION 1. Left lower lobe pneumonia. 2. Acute congestive heart failure. 3. Lxa-CJ-hyxasuqjp myocardial infarction. 4. Mild anemia. PLAN: The patient appears very comfortable this morning. She is not short of breath at rest. She does state to feeling much better overall. On physical exam, there is no significant bronchospasm noted. In addition, there is no significant alveolar-arterial gradient. I will continue the current nebulizer treatments - on a p.r.n. basis. The patient remains on antibiotic therapy. Input by Infectious Disease is also noted. Clinical status of the patient is significantly improved - compared to the initial presentation. However, her future status/prognosis does remain very guarded. I will discuss the above with Dr. Estevez. Willis Morris MD MTDD
[2018-07-14] MEDS: Potassium Chloride 20 mEq ER Tab PO SCH ×2 (08:17→17:55)
[2018-07-14] MEDS: Lidocaine 5% Patch TD SCH (09:50)
--- NOTE | 2018-07-14 09:51 | PN ---
DATE: 07/14/2018 SUBJECTIVE: I saw Armida sitting out of bed to chair in the TCU. She is alert, smiling, best I had seen her, eating her breakfast very well. She is trying hard in physical therapy. She is actually laughing this morning. Good spirits. MEDICATIONS: She is on albuterol, aspirin, Betapace, Doryx, insulin, Januvia, potassium, Lasix, Lidoderm, Lipitor, Lyrica, morphine as needed, Norvasc, Plavix and Rocephin IV. OBJECTIVE: VITAL SIGNS: She has a 98.4 temperature, 67 pulse, 138/69 blood pressure, 20 respiratory rate, 95% O2 sat on room air. HEENT: Head: Atraumatic, normocephalic. HEART: Regular rate. LUNGS: Clear to auscultation. ABDOMEN: Soft, nontender. Positive bowel sounds. EXTREMITIES: With no edema. LABORATORY DATA: She has 87 white count, 10.1 hemoglobin, 31.2 hematocrit with a 232,000 platelets. Sodium 139, potassium 4.5, BUN 30, creatinine 1.1, GFR is 47, sugar is 107. Calcium is 8.3, total bili is 0.5, AST is 22, ALT is 29, alk phos 72, total protein is 5.4. She is definitely improving overall. She is being seen by Pulmonary, Infectious Disease. She is definitely improved while she has been here. IMPRESSION AND PLAN: She had an myocardial infarction, left pneumonia, congestive heart failure, renal insufficiency, atrial fibrillation, diabetes. Continue aggressive treatment and care. Hopefully, she will be continued to improve, do well in therapy, we will check her labs. Cornelius Estevez DO
--- NOTE | 2018-07-14 11:11 | PN ---
DATE: 07/14/2018 SUBJECTIVE: The patient is seen sitting in a chair in Transitional Care Unit. She is comfortable at the present time. She denies any chest pain or dyspnea. CURRENT MEDICATIONS: Remain albuterol inhaler, aspirin, sotalol 40 mg twice a day, doxycycline, insulin, Januvia, Lasix 20 mg daily, potassium supplement, Lipitor, Lyrica, Norvasc and Plavix. OBJECTIVE: GENERAL: She is a very elderly woman who appears comfortable at the present time. VITAL SIGNS: Her blood pressure is 112/66 with a pulse of 74 and respirations are 16. She is afebrile. HEENT: No JVD. CHEST: A few scattered rhonchi. HEART: Systolic murmur is noted in the left sternal border. ABDOMEN: Soft, nontender. Normoactive bowel sounds. EXTREMITIES: No edema. LABORATORY DATA: Potassium 4.5, BUN and creatinine are 13 and 1.1. White count is 7.0, hemoglobin and hematocrit are 10.1 and 31.2 with a platelet count of 232,000. IMPRESSION: 1. Left lower lobe community-acquired pneumonia in immunocompromised host, clinically improved. 2. Coronary artery disease status post remote myocardial fraction and percutaneous coronary intervention with possible small [id number] elevation myocardial infarction on this admission. 3. History of multiple myeloma. 4. Paroxysmal atrial fibrillation, remains in sinus rhythm on sotalol therapy. 5. Chronic anemia. RECOMMENDATIONS: Her current medications should continue for now. Increase activity and ambulation as tolerated is advised. She remains off anticoagulation given her persistence of sinus rhythm and fall risk. We will continue to follow along as needed and then we will continue outpatient followup as needed as well. Omid Carvajal MD
--- NOTE | 2018-07-15 00:03 | PN ---
DATE: 07/14/2018 SUBJECTIVE: The patient is seen in bed, in no acute distress, and nontoxic. The patient was seen earlier this morning in room 316. No fevers and no chills. PHYSICAL EXAMINATION: VITAL SIGNS: Temperature is 98, blood pressure is 112/60, and respiratory rate of 16. HEENT: Unremarkable. NECK: Supple. LUNGS: Have decreased breath sounds. HEART: Normal S1 and S2. ABDOMEN: Soft. LABORATORY DATA: Reveals a white count of 7, hemoglobin of 10, and platelets of 232,000. Chemistries reveals a BUN of 13 and creatinine of 1.1. Microbiology is noted. ASSESSMENT AND PLAN: An 87-year-old female with left lower lobe community-acquired pneumonia, non-ST elevation myocardial infarction, diabetes, and atrial fibrillation. Completed 7 days of ceftriaxone and doxycycline and on p.o. doxycycline day #[address] Morris's note is reviewed. We will discontinue the ceftriaxone after tomorrow's dose, which will be and we will follow with you. Dany Lovett MD
[2018-07-15] MEDS: cefTRIAXone 1 gm 1 GM/100 ML BAG IVPB SCH (05:13)
[2018-07-15 06:59] LABS: ALB/GLOB RATIO 1.1 (1.1-1.8); ALBUMIN 2.7 g/dL (3.0-4.8); CALCIUM 7.7 mg/dL (8.4-10.5); HEMOGLOBIN 9.4 g/dL (12.0-16.0); MEAN CELL VOLUME 94.4 fl (80.0-105.0); MEAN CORPUSCULAR HGB CONC 32.9 g/dl (31.0-37.0); RBC 3.03 10^6/uL (3.5-6.1); RED CELL DISTRIBUTION WIDTH 15.7 % (11.5-14.5); WHITE BLOOD COUNT 7.3 10^3/uL (4.5-11.0)
--- NOTE | 2018-07-15 07:27 | PN ---
DATE: 07/15/2018 PULMONARY NOTE SUBJECTIVE: The patient appears comfortable this morning. She is not short of breath at rest. PHYSICAL EXAMINATION: VITAL SIGNS: (Last noted in the computer): Temperature is 98.3, pulse 73, respirations 17, blood pressure 117/66. Oxygen saturation on nasal cannula is 100%. HEENT: Normocephalic, atraumatic. Positive JVD. CARDIOVASCULAR: Systolic ejection murmur at the lower left sternal border. Positive S3 gallop. LUNGS: Minimal crackles at the bases. Otherwise clear. EXTREMITIES: Less edema. No cyanosis. No clubbing. Calves are nontender to palpation. GI: Abdomen is soft, nontender and nondistended. Bowel sounds are positive. SKIN: No acute rash. NEUROLOGIC: Limited at the present time. IMPRESSION: 1. Left lower lobe pneumonia. 2. Acute congestive heart failure. 3. [id number] myocardial infarction. 4. Mild anemia. PLAN: The patient appears very comfortable this morning. She is not short of breath at rest. She does state to feeling much better overall. On physical exam, there is no significant bronchospasm noted. In addition, the oxygen saturation on nasal cannula is now 100%. I will continue with the current nebulizer treatments - on a p.r.n. basis. Inputs by Cardiology and Infectious Disease are also noted. Clinical status of the patient is significantly improved - compared to the initial presentation. She does remain guarded overall. I will discuss the above with Dr. Estevez. Willis Morris MD MTDJuan
[2018-07-15] MEDS: Insulin Reg-MEDIUM-Coverage SC SCH ×4 (08:15→21:46)
[2018-07-15] MEDS: Potassium Chloride 20 mEq ER Tab PO SCH ×2 (08:16→17:38)
--- NOTE | 2018-07-15 09:29 | PN ---
DATE: 07/15/2018 SUBJECTIVE: I saw her sitting out of bed to chair in the TCU. She is doing better. She is doing better with physical therapy. She is eating better, more alert, more comfortable, more strength. No chest pain or shortness of breath. No abdominal pain. The plan is for her to be discharged tomorrow home. MEDICATIONS: She is on albuterol, aspirin, Betapace, Doryx, insulin coverage, Januvia, potassium, Lasix, Lidoderm, Lipitor, Lyrica, morphine which was stopped, Norvasc, Plavix and Rocephin which was stopped also. PHYSICAL EXAMINATION: VITAL SIGNS: She has a 98.3 temp, 73 pulse, 117/66 blood pressure, 17 respiratory rate, 100% O2 sat on room air. HEENT: Head is atraumatic, normocephalic. She is smiling, alert, comfortable. No pain. Good spirits. HEART: Regular rate. LUNGS: Decreased breath sounds, but clear. ABDOMEN: Soft, nontender. Positive bowel sounds. EXTREMITIES: No edema. LABORATORY DATA: Last labs were today, 7.3 white count, 9.4 hemoglobin, 28.6 hematocrit with 216 platelets. 139 sodium, potassium 4.2, BUN is 14, creatinine 1.1, GFR is 47, sugar is 96, calcium is 7.7, total bili is 0.4, AST is 22, ALT is 29, alk phos 68, total protein is 5.2. ASSESSMENT AND PLAN: I will stop the morphine, I do not think she is taking it and tomorrow will be her last day of the Rocephin. I will be discharging her tomorrow home. I think she did very very well. I encouraged her to continue to participate in physical therapy. I will check labs tomorrow morning. I discussed it with the nurse, also discussed it with her daughter and the patient and tomorrow is the discharge today. Armida Harrell who had multiple issues. She had myocardial infarction, left pneumonia, congestive heart failure, rectal prolapse, atrial fibrillation and hypertension. Cornelius Estevez DO [facility] # [id number]
[2018-07-15] MEDS: Lidocaine 5% Patch TD SCH (10:28)
--- NOTE | 2018-07-15 14:18 | PN ---
DATE: 07/15/2018 SUBJECTIVE: The patient is in bed, in no acute distress, nontoxic. No fevers and no chills. PHYSICAL EXAMINATION: VITAL SIGNS: Temperature is 98, blood pressure is 117/60, respiratory rate 20, heart rate of 74. HEENT: Examination of HEENT is unremarkable. NECK: Supple. LUNGS: Have decreased breath sounds. HEART: Examination is normal S1, S2. ABDOMEN: Examination is soft, nontender. No organomegaly or rebound or guarding. LABORATORY DATA: Laboratory examination reveals a white count of 7.3, hemoglobin of 9 and BUN of 14. Creatinine is 1.1. ASSESSMENT/PLAN: An 87-year-old female with a left lower lobe community-acquired pneumonia, [id number] myocardial infarction, diabetes mellitus, atrial fibrillation. Completed with 7 days of ceftriaxone and doxycycline and actually today is day #10 and she is doing well. We will discontinue the antibiotics. The patient has had adequate antibiotic therapy. We would first discontinuation the heparin lock to decrease the possibility of developing nosocomial infections. No further antibiotics necessary. Dany Lovett MD
[2018-07-16] MEDS: Insulin Reg-MEDIUM-Coverage SC SCH ×2 (06:33→12:10)
[2018-07-16 06:35] VITALS: RESP 20; TEMP 98.2; O2SAT 99
[2018-07-16 06:38] LABS: HEMOGLOBIN 9.7 g/dL (12.0-16.0); MEAN CELL VOLUME 95.2 fl (80.0-105.0); MEAN CORPUSCULAR HGB CONC 32.6 g/dl (31.0-37.0); MEAN PLATELET VOLUME 10.1 fl (7.0-11.0); RBC 3.13 10^6/uL (3.5-6.1); RED CELL DISTRIBUTION WIDTH 15.7 % (11.5-14.5); WHITE BLOOD COUNT 7.8 10^3/uL (4.5-11.0)
[2018-07-16 06:55] LABS: ALB/GLOB RATIO 1.1 (1.1-1.8); ALBUMIN 2.8 g/dL (3.0-4.8); CALCIUM 7.9 mg/dL (8.4-10.5)
[2018-07-16] MEDS: Potassium Chloride 20 mEq ER Tab PO SCH (08:36)
--- NOTE | 2018-07-16 09:45 | DS ---
HISTORY OF PRESENT ILLNESS: I saw her in her room. She is walking around the TCU room with a walker. She looks much better, feeling better, smiling. She is eating well. Good spirits. No chest pain, no shortness of breath. No abdominal pain. She is on albuterol, aspirin, Betapace, Imodium as needed, Januvia, potassium replacement, Lasix, Lidoderm patch as needed, Lipitor, Lyrica, Norvasc and Plavix. She is doing so much better. PHYSICAL EXAMINATION: VITAL SIGNS: She has a 98.2 temperature, 61 pulse, 92/52 blood pressure, 20 respiratory rate, 99% O2 sat on room air. HEENT: Head: Atraumatic, normocephalic. HEART: Regular rate. LUNGS: Clear to auscultation. ABDOMEN: Soft. EXTREMITIES: No edema. LABORATORY DATA: She has a 7.8 white count, 9.7 hemoglobin, 29.8 hematocrit with 212,000 platelets. Sodium 138, potassium 4.5, BUN is 16, creatinine is 1.2, GFR is 43, sugar is 103, calcium is 7.9, total bili is 0.4. AST is 23, ALT is 33, alk phos 71, total protein is 5.4. ASSESSMENT AND PLAN: She is being seen by Pulmonary and Infectious Disease. She is very well here. She completed antibiotics. She had some diarrhea but it is okay now. We are checking for any kind of C. diff if she is and let me know and I am going to put her on Flagyl on the outpatient and will call me if anything changes. I will see her on a house call or in the office in the next week and the pharmacy will call me to go over the medications. Cornelius Estevez DO
--- NOTE | 2018-07-16 09:52 | PN ---
DATE: 07/16/2018 SUBJECTIVE: The patient is in bed in no acute distress, nontoxic. PHYSICAL EXAMINATION: VITAL SIGNS: On exam, temperature is 98, blood pressure is 112/70 and respiratory 16. HEENT: Unremarkable. NECK: Supple. LUNGS: Have decreased breath sounds. HEART: Normal S1 and S2. ABDOMEN: Soft and nontender. LABORATORY EXAMINATION: Reveals a white count is 7.8 and hemoglobin of 9. 16 and creatinine of 1.2. Microbiology is noted. ASSESSMENT AND PLAN: This 87-year-old female seen in [facility], bed 1, with left lower lobe community-acquired pneumonia, [id number] myocardial infarction, diabetes mellitus, atrial fibrillation, complete 7 days of ceftriaxone and doxycycline and today is day . The patient is currently off of antibiotics today and possible discharge and the patient is at risk for developing nosocomial infections. Dany Lovett MD
[2018-07-16] MEDS: Lidocaine 5% Patch TD SCH (10:12)
[2018-07-16 10:17] VITALS: BP 109/68; PULSE 68
== END 2018-07-16 14:40 | disposition home or self-care (01) | DRG 871 ==
LOC: TRCU 16:40
PROVIDERS: ADMIT Family Medicine; ATTEND Family Medicine
PROC: 3E03329 Introduction of Other Anti-infective into Peripheral Vein, Percutaneous Approach (ICD-10-PCS; 2018-07-08)
PROC: F07Z9FZ Gait Training/Functional Ambulation Treatment using Assistive, Adaptive, Supportive or Protective Equipment (ICD-10-PCS; principal; 2018-07-10)
PROC: F08Z2FZ Grooming/Personal Hygiene Treatment using Assistive, Adaptive, Supportive or Protective Equipment (ICD-10-PCS; 2018-07-10)
PROC: F07L6FZ Therapeutic Exercise Treatment of Musculoskeletal System - Lower Back / Lower Extremity using Assistive, Adaptive, Supportive or Protective Equipment (ICD-10-PCS; 2018-07-11)
PROC: F08Z1FZ Dressing Techniques Treatment using Assistive, Adaptive, Supportive or Protective Equipment (ICD-10-PCS; 2018-07-11)
DX: A41.9 Sepsis, unspecified organism (principal); J18.1 Lobar pneumonia, unspecified organism; I21.4 Non-ST elevation (NSTEMI) myocardial infarction; C90.00 Multiple myeloma not having achieved remission; J44.0 Chronic obstructive pulmonary disease with (acute) lower respiratory infection; Z79.2 Long term (current) use of antibiotics; I11.0 Hypertensive heart disease with heart failure; I50.9 Heart failure, unspecified; H40.9 Unspecified glaucoma; I48.0 Paroxysmal atrial fibrillation; I25.10 Atherosclerotic heart disease of native coronary artery without angina pectoris; D64.9 Anemia, unspecified; E11.36 Type 2 diabetes mellitus with diabetic cataract; E78.00 Pure hypercholesterolemia, unspecified; F41.9 Anxiety disorder, unspecified; K62.3 Rectal prolapse; M19.90 Unspecified osteoarthritis, unspecified site; N28.9 Disorder of kidney and ureter, unspecified; R19.7 Diarrhea, unspecified; Z95.5 Presence of coronary angioplasty implant and graft; Z79.84 Long term (current) use of oral hypoglycemic drugs; Z86.73 Personal history of transient ischemic attack (TIA), and cerebral infarction without residual deficits